=== PATIENT | male | born 1940 | race Caucasian/White ===

== ENCOUNTER 2022-07-01 11:39 | Outpatient (CLI) | payer MEDICARE, BC, SELFPAY ==
[2022-07-01 12:04] VITALS: BP 155/73; PULSE 68; RESP 18; O2SAT 92
[2022-07-01] MEDS: BRIMONIDINE TARTRATE 0.2% OPHTH 1 DROP EYE-BOTH ×2 (12:05→12:36)
[2022-07-01] MEDS: TETRACAINE 0.5% OPHTH 1 DROP EYE-BOTH ×3 (12:05→12:25)
--- NOTE | 2022-07-01 12:38 | P.OPTPRC_ITS ---
Procedure Note Date of procedure: 07/01/22 Will [facility] bill your pro fee for this procedure?: Yes Procedure Description: SURGEON: Tiffanie Hayward MD PREOPERATIVE DIAGNOSIS: Posterior capsular opacity, right and left eye POSTOPERATIVE DIAGNOSIS: Posterior capsular opacity, right and left eye PROCEDURE: YAG laser capsulotomy, both eyes ANESTHESIA: Topical. ESTIMATED BLOOD LOSS: None PATHOLOGY SPECIMEN: None COMPLICATIONS: None INDICATIONS: See consult note for details. The risks, benefits and alternatives of the procedure were explained to the patient, who elected to proceed and signed informed consent to do so. PROCEDURE: The patient was brought to the pre-holding area where the right and left eyes were identified as the operative eyes. I placed my initials above the eyes. The following was given in both eyes: The patient received 2 sets of 1 drop of 0.5% tetracaine and 1 drop of 1% tropicamide. They also received 1 drop of 0.2% brimonidine. They received 1 drop of 0.5% tetracaine immediately prior to bringing them back for the procedure. The patient was then brought to the procedure room where the right and left eyes were again identified as the operative eyes. A YAG Saúl capsulotomy lens was placed on the right eye. The laser was administered using a total number of 8 shots with an energy of 2.4 mJ per shot for a total energy of 19 mJ. The patient tolerated the procedure well. A YAG Saúl capsulotomy lens was placed on the left eye. The laser was administered using a total number of 11 shots with an energy of 2.4 mJ per shot for a total energy of 26 mJ. The patient tolerated the procedure well. DISPOSITION: The patient was taken back to the pre-holding area and given 1 drop of 0.2% brimonidine in both eyes. They were discharged to home in stable condition. The patient was instructed [facility] call [facility] any sudden change, including dramatic loss of vision, severe pain in the eye or eyebrow region, nausea, or vomiting. The patient was instructed to use the 0.2% brimonidine 1 drop 2 times a day in both eyes for 1 week. The patient will follow up in the clinic in 1-2 weeks. Surgeon: Tiffanie Hayward MD
== END 2022-07-01 12:37 | disposition home or self-care (01) ==
LOC: OP CLINIC 11:42
PROVIDERS: PCP Family Medicine; Visit Provider Ophthalmology
DX: H26.9 Unspecified cataract (principal)
CPT/HCPCS: 66821; A9270

== ENCOUNTER 2022-08-18 14:12 | Outpatient (CLI) | payer MEDICARE, BC, SELFPAY | END 2022-08-18 14:13 | disposition home or self-care (01) | LOC: MRI 14:16 | PROVIDERS: PCP Family Medicine; Visit Provider Internal Medicine | DX: C61 Malignant neoplasm of prostate (principal) | CPT/HCPCS: 72195 ==

== ENCOUNTER 2023-10-07 08:27 | Outpatient (RCR) | payer MEDICARE, BC, SELFPAY ==
[2023-10-07] VITALS (9 sets, daily range): BP systolic 105–133; BP diastolic 57–79; PULSE 62–69; RESP 16; TEMP 36.1–36.5; O2SAT 95–98
[2023-10-07] MEDS: FUROSEMIDE 10 MG/ML inj 20 MG IVP (12:14)
== END 2024-04-04 23:59 | disposition home or self-care (01) ==
LOC: CCIC 08:27
PROVIDERS: PCP Family Medicine; Referring Provider Family Medicine; Visit Provider Family Medicine
DX: D50.8 Other iron deficiency anemias (principal); K52.0 Gastroenteritis and colitis due to radiation
CPT/HCPCS: 36415; 36430; 86850; 86900; 86901; 86922; J1940; P9016

== ENCOUNTER 2023-10-27 19:10 | Outpatient (CLI) | payer MEDICARE, BC, SELFPAY | END 2023-10-27 19:11 | disposition home or self-care (01) | LOC: AMB 10-31 07:42 | PROVIDERS: PCP Family Medicine; Visit Provider Emergency Medicine Emergency Medical Services | DX: M54.9 Dorsalgia, unspecified (principal) | CPT/HCPCS: A0425; A0429 ==

== ENCOUNTER 2023-10-27 19:56 | Observation (INO) | payer MEDICARE, BC, SELFPAY ==
[2023-10-27 20:01] VITALS: BP 122/56; PULSE 71; RESP 16; TEMP 36.2; O2SAT 95; BMI 27.7
--- NOTE | 2023-10-27 20:18 | ED_ITS ---
HPI - General Adult General Chief complaint: Back Injury/Pain Stated complaint: Fall Time Seen by Provider: 10/27/23 20:09 History of Present Illness HPI narrative: Pt felt dizzy this morning around 0230 when getting up to use restroom. Pt fell down to his knees, did not lose consciousness, did not hit his head. Pt rates back pain 7/10. When fell, injured his back. Pt reports history knee and back pain. EMS, blood sugar of 156. IV LAC 18 gauge. 83-year-old man presenting to the emergency department with concern of low back pain and bilateral knee pain right greater than left. He was up this stair builder to use the restroom and feeling dizzy which I clarified to lightheadedness, ultimately falling to his knees. Did not hit his head. There is no loss of consciousness. This standing up and feeling dizzy or at least lightheaded is not a new circumstance. He does have some knee pain and history of low back pain. Spouse did give him a hydrocodone this afternoon without significant relief. Air concerned that he is simply a 2 week possibly related to pain to return home for them to manage at this point. Would note that is accompanied by spouse and daughter. Denies abdominal pain. No upper extremity pain. No shortness of breath or chest pain. Other information obtain later is that received 2 units of blood 1 or 2 weeks ago. Underlying history of prostate cancer and GI bleed. Related Data Home Medications ?Medication ?Instructions ?Recorded ?Confirmed Lactobacillus acidophilus 10 100 mmu cells PO BID 10/07/23 10/27/23 billion cell capsule blood sugar diagnostic (Contour 10/07/23 10/07/23 Next Test Strips) ferrous sulfate 325 mg (65 mg 325 mg PO DAILY 10/07/23 10/27/23 iron) tablet furosemide 20 mg tablet 20 mg PO DAILY 10/07/23 10/27/23 glyburide 2.5 mg tablet 2.5 mg PO DAILY 10/07/23 10/27/23 metoprolol tartrate 25 mg tablet 25 mg PO DIRECTED 10/07/23 10/27/23 niacin 500 mg tablet 500 mg PO DAILY 10/07/23 10/27/23 nitroglycerin 0.4 mg sublingual 0.4 mg sublingual Q5M PRN 10/07/23 10/27/23 tablet omega 1-vog-gkn-fish oil 1,200 mg 1 cap PO DAILY 10/07/23 10/27/23 (144 mg-216 mg) capsule (Fish Oil) semaglutide 7 mg tablet (Rybelsus) 7 mg PO DAILY 10/07/23 10/27/23 sertraline 100 mg tablet 150 mg PO DAILY 10/07/23 10/27/23 simvastatin 80 mg tablet 80 mg PO DAILY 10/07/23 10/27/23 tamsulosin 0.4 mg capsule 0.8 mg PO QPM 10/07/23 10/27/23 Allergies Allergy/AdvReac Type Severity Reaction Status Date / Time chlorthalidone AdvReac Unknown Verified 10/07/23 09:01 lisinopril AdvReac Verified 10/07/23 09:01 Review of Systems Status of ROS: Reports: 6 or more systems reviewed and unremarkable except as noted in History and below [facility] Medical History CKD (chronic kidney disease) stage 3, GFR 30-59 ml/min ?N18.30 - Chronic kidney disease, stage 3 unspecified (ICD-10) Pulmonary fibrosis ?J84.10 - Pulmonary fibrosis, unspecified (ICD-10) 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 - Radiation proctitis (ICD-10) Non-insulin dependent diabetes mellitus Hyperlipidemia ?E78.5 - Hyperlipidemia, unspecified (ICD-10) Essential (primary) hypertension ?I10 - Essential (primary) hypertension (ICD-10) IVORY (obstructive sleep apnea) ?G47.33 - Obstructive sleep apnea (adult) (pediatric) (ICD-10) Prostate cancer ?C61 - Malignant neoplasm of prostate (ICD-10) GERD (gastroesophageal reflux disease) ?K21.9 - Gastro-esophageal reflux disease without esophagitis (ICD-10) Atherosclerotic heart disease ?I25.10 - Atherosclerotic heart disease of [place] coronary artery without angina pectoris (ICD-10) Gout ?M10.9 - Gout, unspecified (ICD-10) Surgical History H/O hemorrhoidectomy ?Z98.890 - Other specified postprocedural states (ICD-10) H/O colonoscopy ?Z98.890 - Other specified postprocedural states (ICD-10) H/O arthroscopy of shoulder ?Z98.890 - Other specified postprocedural states (ICD-10) S/P cholecystectomy ?Z90.49 - Acquired absence of other specified parts of digestive tract (ICD- 10) Hx of CABG ?Z95.1 - Presence of aortocoronary bypass graft (ICD-10) Social History Narrative: Retired, [place] [facility]. Two adult children. Former smoker, typically has 1-2 drinks per night, has not been drinking much recently. No history of ETOH withdrawal. would be medical decision maker if needed, code status is full. What is your current living situation?: I presently have a place to live Problems where you live: no known problems Problems where you live details: NA In the past 12 months, utilities in danger of being shut off: no In past 12 months, lack of transportation kept you from medical appts, meetings, work, or getting things needed for daily living: no In the past 12 mos, have been you worried that your food would run out before you had money to buy more?: never true In the past 12 mos, the food you bought just didn't last and you didn't have money to buy more?: never true Highest level of school completed/degree received: GED or equivalent Smoking Status: Never smoker Second hand tobacco smoke exposure: No How often do you have a drink containing alcohol: 4 or more times a week Alcohol type details: 1-2 drinks nightly, states he hasn't had any for a few nights How many standard drinks containing alcohol do you have on a typical day: 1 or 2 How often do you have six or more drinks on one occasion: Never AUDIT-C Alcohol total score: 4 Non-prescribed substance use: denies use Caffeine: Yes How often does anyone, including family, friends and others, physically hurt you : never How often does anyone, including family, friends and others, insult or talk down to you: never How often does anyone, including family, friends and others, threaten you with harm: never How often does anyone, including family, friends and others, scream or curse at you: never service: No Exam Narrative: Exam Narrative: The pleasant. Hard of hearing. Head is atraumatic. Neck is supple nontender. Back nontender. Vaguely reproducible discomfort however to palpation of midline low lumbar spine. Sense of fullness here. No SI joint area tenderness but. Heart is in regular rate and rhythm. Is generally stiff in his movements. There are large swellings at the left olecranon a. Without cellulitic change. These are chronic. Subcutaneous bones at the anterior aspect of the right patella I suspect are tophaceous. Less but also present about the left patella. I do not see any inflammatory changes. No clear joint effusion. He complains of a good deal of pain with flexion of both knees. No abdominal pain. Overweight. Const: Vital Signs, click to edit/add: Vital Signs - 24 hr 10/27/23 20:01 Temperature 97.2 F L Pulse Rate [Left P ulse Oximeter] 71 Respiratory Rate 16 Blood Pressure [Ri ght Upper Arm] 122/56 L Pulse Oximetry 95 Oxygen Delivery Me thod Room Air Documenting provider has reviewed patient's vital signs: yes Course Vital Signs Vital signs: Initial Vital Signs Temperature 97.2 F L 10/27/23 20:01 Temperature Source Temporal Artery Scan 10/27/23 20:01 Pulse Rate 71 10/27/23 20:01 Pulse Rhythm Regular 10/27/23 20:01 Respiratory Rate 16 10/27/23 20:01 Blood Pressure 122/56 L 10/27/23 20:01 Blood Pressure Mean 78 10/27/23 20:01 Blood Pressure Position Semi-Fowlers 10/27/23 20:01 Pulse Oximetry 95 10/27/23 20:01 Oxygen Delivery Method Room Air 10/27/23 20:01 Vital Signs Temperature 97.2 F L 10/27/23 20:01 Pulse Rate 71 10/27/23 20:01 Respiratory Rate 16 10/27/23 20:01 Blood Pressure 122/56 L 10/27/23 20:01 Pulse Oximetry 95 10/27/23 20:01 Oxygen Delivery Method Room Air 10/27/23 20:01 Temperature 98.1 F 10/27/23 22:40 Pulse Rate 63 10/28/23 00:49 Respiratory Rate 18 10/27/23 23:00 Blood Pressure 122/76 10/27/23 22:40 Pulse Oximetry 94 10/27/23 22:40 Oxygen Delivery Method Room Air 10/27/23 22:40 Medications Administered Medications: Generic Name Dose Route Start Last Admin Trade Name Freq PRN Reason Stop Dose Admin Acetaminophen 1,300 mg 10/27/23 23:12 10/28/23 00:11 Acetaminophen 650 Mg Tablet Er PO 1,300 mg Q8H PRN Administration Lidocaine 1 patch 10/27/23 23:30 10/28/23 00:12 Lidocaine 5% Patch TRANSDERMA 1 patch Q24H MIKE Administration Protocol Metoprolol Tartrate 50 mg 10/28/23 00:00 10/28/23 00:18 Metoprolol Tartrate 50 Mg Tablet PO Not Given HS MIKE Oxycodone HCl 5 - 10 mg 10/27/23 23:12 10/28/23 00:11 Oxycodone 5 Mg Tablet PO 10 mg Q4H PRN Administration moderate/severe Pain Discontinued Medications Generic Name Dose Route Start Last Admin Trade Name Freq PRN Reason Stop Dose Admin Hydrocodone Bitart/Acetaminophen 2 tab 10/27/23 20:25 10/27/23 20:32 Hydrocodone-Acetamin 5-325 Mg 1 Tab PO 10/27/23 20:26 2 tab ONCE ONE Administration Sodium Chloride 1,000 mls @ 1,000 mls/hr 10/27/23 21:31 10/27/23 21:43 0.9 % Sodium Chloride 1000 Ml IV 10/27/23 22:30 1,000 mls/hr .Q1H ONE Administration Medical Decision Making MDM Narrative Medical decision making narrative: Hope is that with proper pain management might be able to return home. I would anticipate knee contusion over a potential fracture here. With chronic history of back pain, I think CT imaging will be warranted and preferred over standard flat plate. Upon reassessment it appears more energetic. Says he is feeling much better and relatively free of pain. Review of bilateral knee x-rays three views each by me shows osteoarthritic changes. There appears to be a disrupted osteophyte near the tibia on the right. Reviewed CT imaging over the lumbar spine as well. Would defer to radiology here. Appears to be suspected chronic compression fracture most notable in the L4 vertebral body. Noncontrast CT through the lumbar spine with multiplanar reformats Comparison: None Findings: Alignment: Mild L3-4 anterolisthesis. Bones: Osteopenic appearing bone. Schmorl`s node with mild compression fracture at L1 and Schmorl`s node with mild to moderate compression fracture at L4. Mild height loss of L5 also noted. While there is no comparison and these are technically age indeterminate, the absence of acute features at presence of vacuum phenomenon overall suggests that these are chronic. Lumbar levels: No acute abnormality appreciated. [id number] multilevel degenerative changes. Suspect high-grade stenosis from disc and facet disease at L2-3. Soft tissues: No acute abnormality appreciated. Impression: 1. Chronic appearing though technically age indeterminate areas of height loss and compression, as above. No acute appearing fractures are appreciated. 2. 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 Again upon reassessment is improved however spouse maintains that simply too weak and unsafe to go home at this point. Therefore I contacted hospitalist who is thankfully accepting for admission. Labs are notable in particular for hemoglobin of 10.8. This is improved actually from prior measurement. Otherwise creatinine of 2.5 which I understand is near his baseline. Medical Records Medical records reviewed: Yes I reviewed the patient's medical records Lab Data Lab results reviewed: Yes I reviewed the patient's lab results Labs: Lab Results 10/27/23 Range/Units 20:40 WBC 9.52 (4.50-11.00) K/uL RBC 3.53 L (4.30-5.90) m/uL Hgb 10.8 L (13.5-17.5) gm/dL Hct 33.7 L (37.0-53.0) % MCV 96 (80-100) fL MCH 31 (26-34) pg MCHC 32 (32-36) gm/dL RDW Coeff of Jcarlos 15.0 (11.5-15.5) % Plt Count 219 (140-440) K/uL Neut % (Auto) 81.8 H (42.0-72.0) % Lymph % (Auto) 5.8 L (20-44) % [place] % (Auto) 11.2 H (0.0-11.0) % Eos % (Auto) 0.7 (0.0-7.0) % Baso % (Auto) 0.2 (0.0-3.0) % Neut # (Auto) 7.80 H (1.7-7.0) K/uL Lymph # (Auto) 0.60 L (0.90-2.90) K/uL [place] # (Auto) 1.10 H (0.00-0.90) K/UL Eos # (Auto) 0.07 (0.00-0.50) K/uL Baso # (Auto) 0.02 (0.00-0.30) K/uL Abs Immat Gran (auto) 0.03 (0.00-0.30) K/uL Imm/Tot Granulo (auto) 0.3 % Sodium 137 (135-149) mmol/L Potassium 4.6 (3.6-5.1) mmol/L Chloride 100 (96-114) mmol/L Carbon Dioxide 26 (20-32) mmol/L Anion Gap 11 (7-15) mEq/L BUN 49 H (7-30) mg/dL Creatinine 2.5 H (0.5-1.5) mg/dL Estimated Creat Clear 25.75 Estimated GFR 25 ml/min Glucose 146 H (60-115) mg/dL Calcium 9.7 (8.4-10.6) mg/dL Discharge Plan Discharge Clinical Impression: Back pain, Weakness, Acute knee pain Patient Disposition: Admitted As Observation Condition: Improved
--- NOTE | 2023-10-27 20:26 | CRLHL7_ITS ---
For Patients: As a result of the Century Cures Act, medical imaging exams and procedure reports are released immediately into your electronic medical record. You may view this report before your referring provider. If you have questions, please contact your health care provider. Indication: Fall with low back pain Technique: Noncontrast CT through the lumbar spine with multiplanar reformats Comparison: None Findings: Alignment: Mild L3-4 anterolisthesis. Bones: Osteopenic appearing bone. Schmorl`s node with mild compression fracture at L1 and Schmorl`s node with mild to moderate compression fracture at L4. Mild height loss of L5 also noted. While there is no comparison and these are technically age indeterminate, the absence of acute features at presence of vacuum phenomenon overall suggests that these are chronic. Lumbar levels: No acute abnormality appreciated. Ursw-wy-fwwzwwsx multilevel degenerative changes. Suspect high-grade stenosis from disc and facet disease at L2-3. Soft tissues: No acute abnormality appreciated. Impression: 1. Chronic appearing though technically age indeterminate areas of height loss and compression, as above. No acute appearing fractures are appreciated. 2. 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 Please note that all CT scans at this facility use dose modulation, iterative reconstruction, and/or weight-based dosing when appropriate to reduce radiation dose to as low as reasonably achievable. Dictated by Misael Kingston MD @ 10/27/2023 9:42:39 PM (Electronically Signed)
--- NOTE | 2023-10-27 20:26 | CRLHL7_ITS ---
For Patients: As a result of the Cures Act, medical imaging exams and procedure reports are released immediately into your electronic medical record. You may view this report before your referring provider. If you have questions, please contact your health care provider. Indication: Fall and pain Technique: Three views of the right knee Comparison: None Findings/Impression: Swha-os-hdzxsybo tricompartment changes and small joint effusion. Question fracture of osteophytes along the tibial tuberosity. No other acute radiographic abnormality is appreciated. Dictated by Misael Kingston MD @ 10/27/2023 9:44:50 PM (Electronically Signed)
--- NOTE | 2023-10-27 20:26 | CRLHL7_ITS ---
For Patients: As a result of the Cures Act, medical imaging exams and procedure reports are released immediately into your electronic medical record. You may view this report before your referring provider. If you have questions, please contact your health care provider. Indication: Fall and pain Technique: Three views of the left knee Comparison: None Findings/Impression: Postoperative changes along the medial soft tissues and mild to moderate tricompartmental degenerative changes with no acute radiographic abnormality appreciated. Dictated by Misael Kingston MD @ 10/27/2023 9:43:42 PM (Electronically Signed)
[2023-10-27] MEDS: HYDROCODONE-ACETAMIN 5-325 MG 1 TAB 2 TAB PO (20:32)
[2023-10-27 20:55] LABS: Basophils Absolute Auto 0.02 K/uL (0.00-0.30); Basophils Percent Auto 0.2 % (0.0-3.0); Eosinophils Absolute Auto 0.07 K/uL (0.00-0.50); Eosinophils Percent Auto 0.7 % (0.0-7.0); Hematocrit 33.7 % (37.0-53.0); Hemoglobin* 10.8 gm/dL (13.5-17.5); Immature Granulocytes Abs Auto 0.03 K/uL (0.00-0.30); Immature Granulocytes Pct Auto 0.3 %; Lymphocytes Percent Auto 5.8 % (20-44); Mean Corpuscular HGB Conc 32 gm/dL (32-36); Mean Corpuscular Hemoglobin 31 pg (26-34); Mean Corpuscular Volume 96 fL (80-100); Monocytes Percent Auto 11.2 % (0.0-11.0); Neutrophils Percent Auto 81.8 % (42.0-72.0); Platelet Count* 219 K/uL (140-440); Red Blood Count 3.53 m/uL (4.30-5.90); White Blood Count* 9.52 K/uL (4.50-11.00)
[2023-10-27 21:04] LABS: Slide Review Reflex No
[2023-10-27 21:06] LABS: Chloride* 100 mmol/L (96-114)
[2023-10-27 21:07] LABS: Potassium* 4.6 mmol/L (3.6-5.1); Sodium* 137 mmol/L (135-149)
[2023-10-27 21:09] LABS: Creatinine* 2.5 mg/dL (0.5-1.5); Est. Creatinine Clearance* 25.75; Estimated Glomerular Filt Rate 25 ml/min
[2023-10-27 21:10] LABS: Anion Gap 11 mEq/L (7-15); Blood Urea Nitrogen* 49 mg/dL (7-30); Calcium* 9.7 mg/dL (8.4-10.6); Carbon Dioxide* 26 mmol/L (20-32); Glucose* 146 mg/dL (60-115)
[2023-10-27] MEDS: 0.9 % SODIUM CHLORIDE 1000 ml 1,000 ML IV (21:43)
--- NOTE | 2023-10-27 22:38 | P.IMHP_ITS ---
Hospitalist- H&P: HPI History of Present Illness Date Seen: 10/27/23 Chief complaint: Fall Narrative: Addi Oliveira is a 83 year old male who presented to the emergency room by ambulance this evening after a fall at home. He fell at home early this morning (around 0230) while he was getting up to go to the bathroom, typically up multiple times/night to urinate. He noted some lightheadedness prior to the fall (has been noting more lightheadedness when getting up from a seated position lately), no palpitations or other symptoms. He fell onto his knees, noting fairly significant back pain following the fall. He did not hit his head nor lose consciousness. Fall was unwitnessed. He is not on any blood thinners. During the day, his treated him with [place] which provided no relief. He was unable to move secondary to discomfort. She did not feel that she could safely help him with ambulation and eventually called the ambulance of the for ED transport. ER Course and Findings: - possible L4 compression fracture on L Spine CT, unclear chronicity - Hgb 10.8 (stable, received a blood transfusion for hematochezia secondary to radiation proctitis earlier this month for a Hgb of 8.8) - no acute findings on bilateral knee XRays (chronic changes) - Creatinine 2.5 (baseline) Patient given #2 [place] in the ED, ineffective. He was still unable to move and safely transfer home; thus is admitted to the hospital. present for H&P. History is updated below, Dr. Aparicio is PCP locally. Review of Systems Status of ROS: Reports: 10 or more systems reviewed and unremarkable except as noted in History and below [facility] Medical History (Updated 10/27/23 @ 23:26 by Jody Hernández MD) CKD (chronic kidney disease) stage 3, GFR 30-59 ml/min ?N18.30 - Chronic kidney disease, stage 3 unspecified (ICD-10) Pulmonary fibrosis ?J84.10 - Pulmonary fibrosis, unspecified (ICD-10) 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 - Radiation proctitis (ICD-10) Non-insulin dependent diabetes mellitus Hyperlipidemia ?E78.5 - Hyperlipidemia, unspecified (ICD-10) Essential (primary) hypertension ?I10 - Essential (primary) hypertension (ICD-10) IVORY (obstructive sleep apnea) ?G47.33 - Obstructive sleep apnea (adult) (pediatric) (ICD-10) Prostate cancer ?C61 - Malignant neoplasm of prostate (ICD-10) GERD (gastroesophageal reflux disease) ?K21.9 - Gastro-esophageal reflux disease without esophagitis (ICD-10) Atherosclerotic heart disease ?I25.10 - Atherosclerotic heart disease of al[place]iiq coronary artery without angina pectoris (ICD-10) Gout ?M10.9 - Gout, unspecified (ICD-10) Surgical History (Updated 10/27/23 @ 23:45 by Jody Hernández MD) H/O hemorrhoidectomy ?Z98.890 - Other specified postprocedural states (ICD-10) H/O colonoscopy ?Z98.890 - Other specified postprocedural states (ICD-10) H/O arthroscopy of shoulder ?Z98.890 - Other specified postprocedural states (ICD-10) S/P cholecystectomy ?Z90.49 - Acquired absence of other specified parts of digestive tract (ICD- 10) Hx of CABG ?Z95.1 - Presence of aortocoronary bypass graft (ICD-10) Social History (Updated 10/27/23 @ 23:24 by Jody Hernández MD) Narrative: Retired, [place] of [facility]. Two adult children. Former smoker, typically has 1-2 drinks per night, has not been drinking much recently. No history of ETOH withdrawal. would be medical decision maker if needed, code status is full. Non-prescribed substance use: denies use Meds Home Medications and Allergies Home Medications ?Medication ?Instructions ?Recorded ?Confirmed ?Type Lactobacillus acidophilus 10 100 mmu cells PO BID 10/07/23 10/27/23 History billion cell capsule blood sugar diagnostic (Contour 10/07/23 10/07/23 History Next Test Strips) ferrous sulfate 325 mg (65 mg 325 mg PO DAILY 10/07/23 10/27/23 History iron) tablet furosemide 20 mg tablet 20 mg PO DAILY 10/07/23 10/27/23 History glyburide 2.5 mg tablet 2.5 mg PO DAILY 10/07/23 10/27/23 History metoprolol tartrate 25 mg tablet 25 mg PO DIRECTED 10/07/23 10/27/23 History niacin 500 mg tablet 500 mg PO DAILY 10/07/23 10/27/23 History nitroglycerin 0.4 mg sublingual 0.4 mg sublingual Q5M PRN 10/07/23 10/27/23 History tablet omega 2-uih-blr-fish oil 1,200 mg 1 cap PO DAILY 10/07/23 10/27/23 History (144 mg-216 mg) capsule (Fish Oil) semaglutide 7 mg tablet (Rybelsus) 7 mg PO DAILY 10/07/23 10/27/23 History sertraline 100 mg tablet 150 mg PO DAILY 10/07/23 10/27/23 History simvastatin 80 mg tablet 80 mg PO DAILY 10/07/23 10/27/23 History tamsulosin 0.4 mg capsule 0.8 mg PO QPM 10/07/23 10/27/23 History Allergies Allergy/AdvReac Type Severity Reaction Status Date / Time chlorthalidone AdvReac Unknown Verified 10/07/23 09:01 lisinopril AdvReac Verified 10/07/23 09:01 Exam Narrative: Exam Narrative: GEN: Alert and oriented, laying comfortably in bed HEENT: EOMIs bilaterally, no scleral icterus, mild conjunctival pallor CV: RRR, No concerning murmurs R: LCTA bilaterally without concerning wheezing, air movement adequate Ab: soft, no ttp, no distention or masses Back: normal contours, no step-offs, + ttp over midline in lumbar region Ext: discomfort with palpation of B knees, no effusion or skin abnormalities, discomfort with flexion/extension. Normal dorsalis pedis pulses, + subungual hematoma R great toe Skin: Hemostatic abrasion of skin R great toe, scattered bruising of upper extremities Neuro: No focal deficits on limited exam Psych: Appropriate Const: Vital Signs, click to edit/add: Vital Signs - 24 hr 10/27/23 20:01 Temperature 97.2 F L Pulse Rate [Left P ulse Oximeter] 71 Respiratory Rate 16 Blood Pressure [Ri ght Upper Arm] 122/56 L Pulse Oximetry 95 Oxygen Delivery Me thod Room Air Hospitalist - H&P: Result Labs Labs: Short CBC 10/27/23 Range/Units 20:40 WBC 9.52 (4.50-11.00) K/uL Hgb 10.8 L (13.5-17.5) gm/dL Hct 33.7 L (37.0-53.0) % Plt Count 219 (140-440) K/uL BMP 10/27/23 20:40 Sodium 137 Potassium 4.6 Chloride 100 Carbon Dioxide 26 BUN 49 H Creatinine 2.5 H Glucose 146 H Calcium 9.7 Assessment and Plan Assessment and plan (1) Fall: Problem comment: - likely mechanical, may have an element of orthostasis - follow on telemetry given cardiac history Status: Acute (2) Compression fracture of L4 vertebra: Problem comment: - unclear chronicity, but was not present on August MRI - given trauma and pain, will treat as this is acute with calcitonin nasal spray and lidocaine patches - scheduled Tylenol and prn oxycodone, therapies ordered Status: Acute (3) Low back pain: Status: Acute (4) CKD (chronic kidney disease) stage 3, GFR 30-59 ml/min: Problem comment: - stage 3/4, baseline creatinine 2.2-2.6 as an outpatient Status: Acute (5) Non-insulin dependent diabetes mellitus: Problem comment: - on Semaglutide and Glyburide - last A1C 6.06 July 2023 - regular diet, accuchecks Status: Acute (6) Essential (primary) hypertension: Problem comment: - in addition to hyperlipidemia, coronary artery disease - continue home medications Status: Acute (7) Anemia: Problem comment: - 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
[2023-10-27 22:40] VITALS: BP 122/76; PULSE 72; RESP 18; TEMP 36.7; O2SAT 94; BMI 26.3
--- NOTE | 2023-10-27 22:40 | PC.NURSE ---
Report given to med surg staff. All cares explained to . phlebotomy services technician tx pt via bed with all belongings. Dr Hernández aware that has some questions about xrays and labs.
[2023-10-27 23:00] VITALS: PULSE 72; RESP 18
[2023-10-28] MEDS: ACETAMINOPHEN 650 MG TABLET ER 1300 MG PO ×2 (00:11→08:18)
[2023-10-28] MEDS: OXYCODONE 5 MG TABLET PO ×2 (00:11→08:18)
[2023-10-28] MEDS: LIDOCAINE 5% PATCH 1 PATCH TRANSDERMA (00:12)
[2023-10-28 00:38] LABS: Appearance Urine Clear (Clear); Bilirubin Urine Negative (Negative); Blood Urine Trace-intact (Negative); Color Urine Yellow (Yellow); Glucose Urine 2+ (Negative); Ketones Urine Negative (Negative); Leukocyte Esterase Urine Negative (Negative); Nitrite Urine Negative (Negative); Protein Urine Trace (Negative); Specific Gravity Urine 1.015 (1.000-1.030); Urobilinogen Urine 0.2 (0.2-1.0)
[2023-10-28 00:46] LABS: Bacteria Urine Few; RBC Urine 0-2 (0-2); Squamous Epithelial Cell Urine Few (None-Few); WBC Urine 0-2 (0-5)
[2023-10-28 00:49] VITALS: PULSE 63
[2023-10-28 02:48] VITALS: BP 109/60; PULSE 66; RESP 18; TEMP 36.9; O2SAT 94
--- NOTE | 2023-10-28 05:52 | PC.NURSE ---
End of shift report [id number]: Patient admitted to floor at 2240 with back pain from fall. Alert and oriented x 4. Pain to low back reported, well managed with current regimen. Wound to right great toe from fall, area cleansed and covered with bandage per Dr. Hernández recommendation. Denies any SOB or chest pain. Lung sounds clear but diminished bilaterally. Transfers with assist of 2 with gait belt and walker, able to ambulate short distances.
[2023-10-28 06:40] LABS: Basophils Absolute Auto 0.01 K/uL (0.00-0.30); Basophils Percent Auto 0.2 % (0.0-3.0); Eosinophils Absolute Auto 0.13 K/uL (0.00-0.50); Eosinophils Percent Auto 2.5 % (0.0-7.0); Hematocrit 30.9 % (37.0-53.0); Immature Granulocytes Abs Auto 0.02 K/uL (0.00-0.30); Immature Granulocytes Pct Auto 0.4 %; Lymphocytes Percent Auto 14.6 % (20-44); Mean Corpuscular HGB Conc 32 gm/dL (32-36); Mean Corpuscular Hemoglobin 31 pg (26-34); Mean Corpuscular Volume 96 fL (80-100); Monocytes Percent Auto 13.1 % (0.0-11.0); Neutrophils Absolute Auto 3.64 K/uL (1.7-7.0); Neutrophils Percent Auto 69.2 % (42.0-72.0); Platelet Count* 205 K/uL (140-440); RDW Coefficient of Variation % 14.9 % (11.5-15.5); Red Blood Count 3.22 m/uL (4.30-5.90); White Blood Count* 5.26 K/uL (4.50-11.00)
[2023-10-28 06:46] LABS: Slide Review Reflex No
[2023-10-28 07:03] LABS: Chloride* 102 mmol/L (96-114); Potassium* 3.9 mmol/L (3.6-5.1); Sodium* 137 mmol/L (135-149)
[2023-10-28 07:05] LABS: Anion Gap 8 mEq/L (7-15); Aspartate Amino Transferase* 23 U/L (12-35); Bilirubin Total* 0.6 mg/dL (0.1-1.5); Carbon Dioxide* 27 mmol/L (20-32); Creatinine* 2.2 mg/dL (0.5-1.5); Est. Creatinine Clearance* 29.26; Estimated Glomerular Filt Rate 29 ml/min; Total Protein* 6.7 g/dL (6.0-8.3)
[2023-10-28 07:06] LABS: Alanine Aminotransferase* 20 U/L (4-50); Alkaline Phosphatase* 61 U/L (40-150); Blood Urea Nitrogen* 44 mg/dL (7-30); Calcium* 9.4 mg/dL (8.4-10.6); Glucose* 69 mg/dL (60-115)
[2023-10-28 08:54] VITALS: BP 105/66; PULSE 78; RESP 18; O2SAT 97
[2023-10-28] MEDS: SERTRALINE 100 MG TABLET 150 MG PO (09:00)
[2023-10-28] MEDS: FERROUS SULFATE 325 MG TABLET PO (09:00)
[2023-10-28] MEDS: METOPROLOL TARTRATE 25 MG TABLET PO (09:00)
[2023-10-28] MEDS: FUROSEMIDE 20 MG TABLET PO (09:00)
[2023-10-28 11:00] VITALS: BP 139/78; PULSE 60; RESP 18; TEMP 36.4; O2SAT 98
--- NOTE | 2023-10-28 12:58 | P.DS_ITS ---
DS: Providers Provider Date Seen: 10/28/23 Date of admission: 10/27/23 22:37 Primary care physician: Sravan Aparicio MD Admitting Clinician: Jody Hernández MD Attending Physician on discharge: Mannie Yee MD Date of Discharge: 10/28/23 DS: Diagnosis Discharge Diagnosis (1) Fall: Status: Acute Problem details: Mechanical fall in the middle of the night. Uncertain whether there was syncope but reported symptoms of lightheadedness prior to the fall. Blood pressure has been relatively low here (2) Essential (primary) hypertension: Status: Acute Problem details: Blood pressure has been relatively low in the hospital. Reduce metoprolol from 25 mg in the morning and 50 mg at night to 12.5 mg b.i.d. pending followup (3) Compression fracture of L4 vertebra: Status: Acute Problem details: Has chronic back problems with a new acute L4 compression fracture. 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 2.2 this morning (7) Low back pain: Status: Acute Problem details: Acute on chronic (8) Cognitive impairment: Status: Acute Problem details: [place] score on 10/28/2023 is 17/30. Probably has dementia. Recommend that the do more supervision of medication and that the patient stop driving. DS: Summary Hospital Course Hospital Course: Admission HPI: Addi Oliveira is a 83 year old male who presented to the emergency room by ambulance this evening after a fall at home. He fell at home early this morning (around 0230) while he was getting up to go to the bathroom, typically up multiple times/night to urinate. He noted some lightheadedness prior to the fall (has been noting more lightheadedness when getting up from a seated position lately), no palpitations or other symptoms. He fell onto his knees, noting fairly significant back pain following the fall. He did not hit his head nor lose consciousness. Fall was unwitnessed. He is not on any blood thinners. During the day, his treated him with [place] which provided no relief. He was unable to move secondary to discomfort. She did not feel that she could safely help him with ambulation and eventually called the ambulance of the for ED transport. Since admission his pain has been fairly well controlled. He has used an occasional oxycodone tablet and acetaminophen for pain. He has been evaluated by Physical therapy which showed that he was able to walk with a walker fairly well. He he could also walk on stairs. He was evaluated by Occupational therapy. Include in this evaluation was a [place] score of 17/30. I discussed these findings with his and daughter. They were aware of some memory impairment. At this level of impairment I recommend that he stop driving. If he wants to continue to drive he should have a racing car driver safety evaluation. I recommend his provide more supervision for his medications as well. We talked about their home which is an old farm house. They have 3 steps to get on the main level but there is no bedroom or bathroom on the main level. I have recommended that temporarily they set up a bed and a commode on the main level until he is more mobile. Family has already considered doing in addition on the main level so that both the patient and his do not need to walk stairs. Status at Discharge Functional status at discharge: uses cane/walker Overall status at discharge: patient is progressing back to baseline Time Spent with Patient Time attestation: Total time spent providing and/or coordinating discharge services: 45 minutes Time spent: Less than 30 minutes Exam Narrative: Exam Narrative: He is alert and pleasant. Hard of hearing. Breathing is unlabored. Cardiovascular: S1, S2, regular rhythm. Lower extremity testing shows intact sensation. Small abrasion on the right leg but otherwise no apparent trauma. Active Straight leg raising causes low back pain. No obvious weakness. Bilaterally knee flexion and extension and ankle dorsiflexion plantar flexion are 5/5. Intact pedal pulses. No significant edema. Const: Vital Signs, click to edit/add: Vital Signs - 24 hr 10/27/23 20:01 10/27/23 22:40 10/27/23 22:40 Temperature 97.2 F L 98.1 F Pulse Rate Pulse Rate [Left P ulse Oximeter] 71 Pulse Rate [Right Pulse Oximeter] 72 Respiratory Rate 16 18 18 Blood Pressure [Le ft Arm] 122/76 Blood Pressure [Ri ght Upper Arm] 122/56 L Pulse Oximetry 95 94 94 Oxygen Delivery Me thod Room Air Room Air Room Air 10/27/23 23:00 10/28/23 00:49 10/28/23 02:48 Temperature 98.4 F Pulse Rate 63 Pulse Rate [Left P ulse Oximeter] Pulse Rate [Right Pulse Oximeter] 72 66 Respiratory Rate 18 18 Blood Pressure [Le ft Arm] 109/60 Blood Pressure [Ri ght Upper Arm] Pulse Oximetry 94 Oxygen Delivery Me thod Room Air 10/28/23 08:54 10/28/23 08:54 10/28/23 11:00 Temperature 97.6 F Pulse Rate Pulse Rate [Left P ulse Oximeter] Pulse Rate [Right Pulse Oximeter] 78 78 60 Respiratory Rate 18 18 18 Blood Pressure [Le ft Arm] 105/66 139/78 Blood Pressure [Ri ght Upper Arm] Pulse Oximetry 97 98 Oxygen Delivery Me thod Room Air Room Air Documenting provider has reviewed patient's vital signs: yes DS: Data Data Completed and Pending Labs on day of discharge: Labs from last 24 hours 10/28/23 10/28/23 10/27/23 05:57 00:33 20:40 WBC 5.26 9.52 RBC 3.22 L 3.53 L Hgb 10.0 L 10.8 L Hct 30.9 L 33.7 L MCV 96 96 MCH 31 31 MCHC 32 32 RDW Coeff of Jcarlos 14.9 15.0 Plt Count 205 219 Neut % (Auto) 69.2 81.8 H Lymph % (Auto) 14.6 L 5.8 L [place] % (Auto) 13.1 H 11.2 H Eos % (Auto) 2.5 0.7 Baso % (Auto) 0.2 0.2 Neut # (Auto) 3.64 7.80 H Lymph # (Auto) 0.80 L 0.60 L [place] # (Auto) 0.70 1.10 H Eos # (Auto) 0.13 0.07 Baso # (Auto) 0.01 0.02 Abs Immat Gran (auto) 0.02 0.03 Imm/Tot Granulo (auto) 0.4 0.3 Sodium 137 137 Potassium 3.9 4.6 Chloride 102 100 Carbon Dioxide 27 26 Anion Gap 8 11 BUN 44 H 49 H Creatinine 2.2 H 2.5 H Estimated Creat Clear 29.26 25.75 Estimated GFR 29 25 Glucose 69 146 H Calcium 9.4 9.7 Total Bilirubin 0.6 AST 23 ALT 20 Alkaline Phosphatase 61 Total Protein 6.7 Albumin 4.0 Urine Color Yellow Urine Appearance Clear Urine pH 7.0 Ur Specific [place] 1.015 Urine Protein Trace A Urine Glucose (UA) 2+ A Urine Ketones Negative Urine Blood Trace-intact A Urine Nitrite Negative Urine Bilirubin Negative Urine Urobilinogen 0.2 Ur Leukocyte Esterase Negative Urine RBC 0-2 Urine WBC 0-2 Ur Squamous Epith Cells Few Urine Bacteria Few A Preliminary micro results at discharge 10/28/23 00:33 Urine Culture - Preliminary Urine,Clean Catch Culture in Progress Imaging Lumbar CT: Radiologist's impression: Indication: Fall with low back pain Technique: Noncontrast CT through the lumbar spine with multiplanar reformats Comparison: None Findings: Alignment: Mild L3-4 anterolisthesis. Bones: Osteopenic appearing bone. Schmorl`s node with mild compression fracture at L1 and Schmorl`s node with mild to moderate compression fracture at L4. Mild height loss of L5 also noted. While there is no comparison and these are technically age indeterminate, the absence of acute features at presence of vacuum phenomenon overall suggests that these are chronic. Lumbar levels: No acute abnormality appreciated. Rmqu-ge-qhsmsubk multilevel degenerative changes. Suspect high-grade stenosis from disc and facet disease at L2-3. Soft tissues: No acute abnormality appreciated. Impression: 1. Chronic appearing though technically age indeterminate areas of height loss and compression, as above. No acute appearing fractures are appreciated. 2. 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 Discharge Plan Discharge Disposition: Home w/ Parent or Adult Date of Admission: 10/27/23 22:37 Attending Provider on Discharge: Kaiden Yee Primary Care Provider: Sravan Aparicio Condition: Improved Anticipated Discharge Date/Time: 10/28/23 13:00 Discharge Medications: New senna 8.6 mg capsule 8.6 mg PO BID Qty: 30 0RF oxycodone 5 mg tablet 5 mg PO Q6H PRN (Reason: pain) Qty: 30 0RF lidocaine 4 % adhesive patch,medicated 1 patch topical DAILY PRN (Reason: pain) Qty: 30 0RF calcitonin (salmon) 200 unit/actuation spray,non-aerosol 1 spray intranasal (ALT) DAILY Qty: 3.7 0RF acetaminophen 500 mg capsule 1,000 mg PO TID PRNQty: 100 0RF Continued (DME) Contour Next Test Strips Strip MISCELLANEOUS DAILY glyburide 2.5 mg tablet 2.5 mg PO DAILY furosemide 20 mg tablet 20 mg PO DAILY nitroglycerin 0.4 mg tablet, sublingual 0.4 mg sublingual Q5M PRN sertraline 100 mg tablet 150 mg PO DAILY simvastatin 80 mg tablet 80 mg PO DAILY tamsulosin 0.4 mg capsule 0.8 mg PO QPM Rybelsus 7 mg tablet 7 mg PO DAILY niacin 500 mg tablet 500 mg PO DAILY Lactobacillus acidophilus 10 billion cell capsule 100 mmu cells PO DAILY ferrous sulfate 325 mg (65 mg iron) tablet 325 mg PO DAILY omega 3-vlm-uoo-fish oil [Fish Oil] 1,200 (144-216) mg capsule 1 cap PO DAILY Changed metoprolol tartrate 25 mg tablet 12.5 mg PO BID Qty: 30 0RF Rx Instructions: 1 tab every morning, 2 tabs every evening Discharge Orders: Discharge Order (Routine); Ordered 10/28/23 Ordered By: Kaiden Yee Additional Instructions: I recommend you set up your house to be able to live on 1 level. Continue to physical therapy. Use acetaminophen as needed for pain. Use oxycodone as needed for more severe pain. Use sparingly if possible. It will cause sedation and constipation. I recommend that you give up driving. If you feel strongly that you are still able to drive than you should undergo a racing car driver safety evaluation. Talk to your doctor about this if you want to continue to drive. Activity Level: Use Walker Discharge Diet: Diabetic Follow Up Appointments: Sravan Aparicio MD [Primary Care Provider] - 11/03/23 3:15 pm (Follow-up in 1 week) Forms: [facility] Info Instructions
--- NOTE | 2023-10-28 13:56 | PC.SOCIAL ---
Discharge planning: Pt will be discharging home today with his with self-care. No identified social work need at this time. Social work to follow-up as needed.
--- NOTE | 2023-10-28 18:27 | PC.NURSE ---
Nursing Care Hours: [id number] Pt this shift calm and cooperative, alert and oriented. Pain rated 3/10, treated per eMAR. VSS. Ax1 with walker and gait belt. tolerating regular diet. Voiding in toilet. IV removed for discharge. Instructions went over with pt and spouse. All questions and concerns addressed. Pt wheeled out to spouses vehicle in stable condition, transferred from W/C to car without issue.
== END 2023-10-28 14:30 | disposition home or self-care (01) ==
LOC: ED 22:28 → MEDSURG 22:38
PROVIDERS: Admitting Provider Family Medicine; Emergency Provider Family Medicine; PCP Family Medicine; Visit Provider Family Medicine
DX: S32.040A Wedge compression fracture of fourth lumbar vertebra, initial encounter for closed fracture (principal); S80.811A Abrasion, right lower leg, initial encounter; S90.411A Abrasion, right great toe, initial encounter; R53.1 Weakness; W19.XXXA Unspecified fall, initial encounter; M54.50 Low back pain, unspecified; M25.562 Pain in left knee; M25.561 Pain in right knee; R42 Dizziness and giddiness; D64.9 Anemia, unspecified; I95.9 Hypotension, unspecified; R41.89 Other symptoms and signs involving cognitive functions and awareness; G89.29 Other chronic pain; I12.9 Hypertensive chronic kidney disease with stage 1 through stage 4 chronic kidney disease, or unspecified chronic kidney disease; E11.22 Type 2 diabetes mellitus with diabetic chronic kidney disease; N18.30 Chronic kidney disease, stage 3 unspecified; E78.5 Hyperlipidemia, unspecified; G47.33 Obstructive sleep apnea (adult) (pediatric); I25.10 Atherosclerotic heart disease of native coronary artery without angina pectoris; K21.9 Gastro-esophageal reflux disease without esophagitis; M10.9 Gout, unspecified; K62.7 Radiation proctitis; E66.3 Overweight; Z68.26 Body mass index [BMI] 26.0-26.9, adult; H91.90 Unspecified hearing loss, unspecified ear; Z90.49 Acquired absence of other specified parts of digestive tract; Z87.891 Personal history of nicotine dependence; Z85.46 Personal history of malignant neoplasm of prostate; Z95.1 Presence of aortocoronary bypass graft; Z98.890 Other specified postprocedural states
CPT/HCPCS: 36415; 72131; 73562; 80048; 80053; 81001; 82962; 85025; 87086; 96360; 97116; 97162; 97165; 97530; 99284; 99285; G0378; A9270; J7030

== ENCOUNTER 2023-12-16 14:30 | Outpatient (RCR) | payer MEDICARE, BC, SELFPAY | END 2024-04-14 23:59 | disposition home or self-care (01) | PROVIDERS: PCP Family Medicine; Visit Provider Family Medicine | DX: S32.040D Wedge compression fracture of fourth lumbar vertebra, subsequent encounter for fracture with routine healing (principal); M54.16 Radiculopathy, lumbar region; Z51.89 Encounter for other specified aftercare; M48.062 Spinal stenosis, lumbar region with neurogenic claudication; M17.0 Bilateral primary osteoarthritis of knee; M25.551 Pain in right hip; M25.552 Pain in left hip | CPT/HCPCS: 36415; 85025; 97110; 97116; 97140; 97162 ==

== ENCOUNTER 2024-04-11 12:58 | Outpatient (CLI) | payer MEDICARE, BC, SELFPAY | END 2024-04-11 12:59 | disposition home or self-care (01) | LOC: INJ CL 12:59 | PROVIDERS: PCP Family Medicine; Visit Provider Family Medicine | DX: M48.062 Spinal stenosis, lumbar region with neurogenic claudication (principal); M54.16 Radiculopathy, lumbar region; M54.50 Low back pain, unspecified; M79.604 Pain in right leg; M79.605 Pain in left leg | CPT/HCPCS: 64483; J1100; Q9966 ==

== ENCOUNTER 2024-05-14 22:38 | Outpatient (CLI) | payer MEDICARE, BC, SELFPAY | END 2024-05-14 22:39 | disposition home or self-care (01) | LOC: AMB 05-30 02:52 | PROVIDERS: PCP Family Medicine; Visit Provider Emergency Medicine | DX: S19.9XXA Unspecified injury of neck, initial encounter (principal); W18.30XA Fall on same level, unspecified, initial encounter; Y92.008 Other place in unspecified non-institutional (private) residence as the place of occurrence of the external cause | CPT/HCPCS: A0425; A0427 ==

== ENCOUNTER 2024-05-14 23:24 | Emergency (ER) | payer MEDICARE, BC, SELFPAY ==
--- OUTSIDE RECORDS SUMMARY | 2024-05-14 23:26 | XMS_ITS | Clinical Summary ---
Author Organization [facility] Address [place], [place] [address] Care Team Providers Care Home Visits Nurse Name Role Phone Sravan Aparicio MD Primary Care Provider [phone] Uzma Aguirre Unavailable [phone] Florentin Walton MD Unavailable [phone] Eliot Lerma MD Unavailable Fernando Fields MD Unavailable Sim Wynne MD Unavailable [phone] Ruben Carpenter DPM Unavailable Allergies Active Allergy Reactions Criticality Noted Date Comments Chlorthalidone Hyperkalemia,Other - Describe In Comment Field 08/27/2021 interfered with other meds Lisinopril Hyperkalemia,Other - Describe In Comment Field Medium 09/07/2019 Kidney labs were affected interfered with other meds Medications ASPIRIN 325 MG TAB, DELAYED RELEASEIndications :Coronary atherosclerosis of unspecified type of vessel, navajo or graft one daily 0 10/03/19 08 Active FISH OIL 1,200 MG-144 MG-216 MG CAPIndications:Cor onary atherosclerosis of unspecified type of vessel, navajo or graft one daily 0 10/03/19 08 Active FLAXSEED OIL 1,000 MG CAPIndications:Cor onary atherosclerosis of unspecified type of vessel, navajo or graft one daily 0 10/03/19 08 Active niacin 500 mg Sustained-Release capsuleIndications :Other and unspecified hyperlipidemia Take 1 capsule by mouth once daily. DO NOT CRUSH OR CHEW. 90 capsule 4 09/15/19 13 Active blood-glucose meterIndications:D iabetes mellitus without complication (HC) Dispense meter per insurance coverage 1 Device 09/17/19 21 Active lancetsIndications :Diabetes mellitus without complication (HC) As directed. Test 2 times per day. 100 Each 4 09/17/19 21 Active Diabetic ShoeIndications:Di abetes mellitus without complication (HC) As directed. Diabetic foot exam shows calloses over both first metatarsal heads and heels. 1 Each 03/11/20 22 Active CPAPIndications:Ob structive sleep apnea CPAP machine for home use at pressure 9 cmw, full face mask x1/3month with a full face cushion x1/mo 1 Each 11 03/29/20 23 Active blood sugar diagnostic (Contour Next Test Strips) stripIndications:D iabetes mellitus without complication (HC) Dispense item covered by pt ins. E11.9 NIDDM type II - Test 1 time/day 100 Each 3 07/13/19 24 Active semaglutide (RYBELSUS) 7 mg tabletIndications: Diabetes mellitus without complication (HC) Take 7 mg by mouth once daily before a meal. Start after taking Semaglutide 3 mg daily for one month go to 7 mg daily. 90 Tablet 3 07/13/19 24 Active sennosides (SENNA) 8.6 mg tablet Take 8.6 mg by mouth once daily. Active oxyCODONE (ROXICODONE) 5 mg immediate release tabletIndications: Spinal stenosis of lumbar region, unspecified whether neurogenic claudication present Take 1 Tablet (5 mg) by mouth 2 times daily if needed for Pain. 30 Tablet 12/23/19 24 Active tamsulosin (FLOMAX) 0.4 mg capsuleIndications :BPH without urinary obstruction TAKE 2 CAPSULES BY MOUTH DAILY WITH OR AFTER SUPPER 180 Capsule 3 12/27/19 24 Active lidocaine 4 % topical patchIndications:S tressa stenosis of lumbar region with neurogenic claudication Apply 1 Patch on dry, clean, hairless skin once daily if needed for Pain. Apply to intact skin to cover most painful area for max 12hr per 24hr period. 30 Patch 5 12/30/19 24 Active metoprolol tartrate (LOPRESSOR) 25 mg tabletIndications: Atherosclerosis of navajo coronary artery of navajo heart without angina pectoris 12.5 mg twice daily. That is 1/2 tablet twice daily. 90 Tablet 3 01/14/20 24 Active colchicine 0.6 mg tabletIndications: Acute idiopathic gout of ankle, unspecified laterality 2 tabs now. Repeat with 1 tab after an hour. Then 1 tab daily until 2 days after symptom relief for 1week. Use as needed for gout flare 20 Tablet 3 01/14/20 24 Active nitroglycerin (NITROSTAT) 0.4 mg sublingual tabletIndications: Atherosclerosis of navajo coronary artery of navajo heart without angina pectoris Place 1 Tablet (0.4 mg) under the tongue every 5 minutes if needed for Chest Pain. 25 Tablet 5 01/14/20 24 Active furosemide (LASIX) 20 mg tabletIndications: Essential hypertension Take 0.5 Tablets (10 mg) by mouth once daily in the morning. 45 Tablet 3 01/14/20 24 Active sertraline (ZOLOFT) 100 mg tabletIndications: Anxiety TAKE 1 AND 1/2 TABLETS BY MOUTH EVERY DAY 135 Tablet 3 01/14/20 24 Active buPROPion (WELLBUTRIN XL) 300 mg Extended-Release tabletIndications: Dysthymic disorder,Depressio n, recurrent (HC) Take 1 Tablet (300 mg) by mouth once daily. 90 Tablet 3 01/14/20 24 Active simvastatin (ZOCOR) 80 mg tabletIndications: Other hyperlipidemia Take 1 Tablet (80 mg) by mouth at bedtime. 90 Tablet 3 01/14/20 24 Active FreeStyle Marina 3 Sensor Plus for continuous blood glucose monitor (CGM)Indications:D iabetes mellitus without complication (HC) To be used to read blood sugars, follow industrial cafeteria manager directions. 6 Each 3 02/08/20 24 Active glipiZIDE extended-release (GLUCOTROL XL) 2.5 mg Extended-Release tabletIndications: Type 2 diabetes mellitus with other diabetic kidney complication (HC) Take 1 Tablet (2.5 mg) by mouth once daily before a meal. 90 Tablet 3 04/11/20 24 Active calcitonin salmon, 200 units per actuation, nasal (MIACALCIN, FORTICAL) 200 unit/actuation nasal spray As directed. 10/28/19 24 025 Discontin ued(*Uma ent states no longer taking) Hospital, Clinic, or Other Facility Administered Medication Ordered Dose Route Frequency Start Date End Date Status denosumab (PROLIA) injection 60 mgIndications:Osteoporosis , unspecified osteoporosis type, unspecified pathological fracture presence 60 mg SubQ Q 26 WEEKS 02/21/2024 02/19/2025 Active Active Problems Problem Noted Date Diagnosed Date History of gout 01/13/2024 Spinal stenosis of lumbar region 11/03/2023 Pulmonary fibrosis, unspecified 10/07/2023 Depression, recurrent 01/26/2023 Prostate cancer 10/30/2022 Overview (10/30/2022): A) PROSTATE, RIGHT LATERAL BASE, NEEDLE CORE BIOPSIES: 1. Prostatic tissue without evidence of neoplasm 2. Negative for atypical foci, high grade prostatic intraepithelial neoplasia, or malignancy B) PROSTATE, RIGHT, NEEDLE CORE BIOPSIES: 1. Prostatic tissue without evidence of neoplasm 2. Negative for atypical foci, high grade prostatic intraepithelial neoplasia, or malignancy C) PROSTATE, LEFT LATERAL BASE, NEEDLE CORE BIOPSIES: 1. 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 Total surface area involved: 30% 3. Number of needle biopsy cores involved: 4 of 9 4. Perineural invasion: absent D) PROSTATE, LEFT, NEEDLE CORE BIOPSIES: 1. 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 Total surface area involved: 15% 3. Number of needle biopsy cores involved: 1 of 5 4. Perineural invasion: absent Received Lupron on 07/16/22. He has received 4 weeks of Radiation therapy. He next sees Dr. Walton in 01/2023. Type 2 diabetes mellitus wit h other diabetic kidney complication 06/18/2022 CKD (chronic kidney disease) stage 4, GFR 15-29 ml/min 02/22/2020 Overview (02/22/2020): CHRONIC KIDNEY DISEASE Stage 3b A2 as of 02/22/2020. Dr. Gonzalez of Nephrology stated his hyperkalemia is due to his diabetic chronic kidney disease. Essential hypertension 09/07/2019 H. pylori infection 03/09/2017 Overview (03/09/2017): EGD 03/2017 H. 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 08/21/2016 Sleep disorder, circadian, advanced sleep phase type 12/09/2015 Sensorineural hearing loss, bilateral 01/21/2012 Colon polyp 10/30/2011 Overview (03/05/2021): Colonoscopy 10/2011 polyps repeat in 3 years Colonoscopy 08/2014 polyp repeat in 5 years Colonoscopy 03/2021 2-TA, repeat in 5 years GERD (gastroesophageal reflux disease) 1 IVORY 09/10/2008 AHI-18, many c entrals 04/16/2021 AHI-23 FFM heated 09/17/2008 Other and unspecified hyperlipidemia 08/17/2006 Gout, unspecified 08/17/2006 Type II or unspecified type diabetes mellitus without mention of complication, not stated as uncontrolled 08/17/2006 Overview (03/15/2023): Higher dose Rybelsus caused Gastrointestinal medication side effects and fatigue. Dysthymic disorder 08/17/2006 Resolved Problems Problem Noted Date Diagnosed Date Resolved Date Other emphysema 08/12/2020 08/25/2023 Encounters Date Type Department Care Team Description 05/12/2024 10:55 AM PETROLEUM ENGINEERING TEACHER Office Visit [facility] [address] [place] [address] Sravan Aparicio MD Neurologic Problem (Concerns with neuropathy affecting balance) 05/12/2024 Travel 05/09/2024 Transcribe Orders [facility] [phone] Junior Collins PA 04/12/2024 Orders Only [facility] [address] [place] [address] Sim Wynne MD <No scans attached> 04/11/2024 1:20 PM PETROLEUM ENGINEERING TEACHER Office Visit [facility] [address] [place] [address] Sim Wynne MD Procedure (Bilateral L3-4 TFESI) 04/10/2024 Travel 04/01/2024 Travel 03/24/2024 Orders Only [facility] Scanner 1 scan: (1-Ord) ALMA DERMATOLOGY, MOHS PROCEDURE, 03/24/2024 03/17/2024 Transcribe Orders [facility] [address] [place] [address] Sim Wynne MD 03/16/2024 11:45 AM PETROLEUM ENGINEERING TEACHER Orders Only [facility] [address] [place] [address] Lab, [facility] 03/16/2024 Travel 03/08/2024 Orders Only [facility] Scanner 1 scan: (1-Ord) ALMA DERM, JANETHVE BX, 03/08/2024 02/21/2024 10:15 AM CDT Nurse/Clinic Staff Only [facility] [address] [place] [address] Immunization/Injecti on (PROLIA INJECTION PER DR. RENEE) 02/21/2024 Travel 2024 Travel from Last 3 Months Immunizations Name Administration Dates Next Due COVID-19 vaccine (Redbeacon-Bio NTech 30mcg/0.3mL) PF, MDV 04/01/2021,08/27/2020,08/06/2020 HepA-HepB (Twinrix) 03/01/2022,05/22/2003,2002 INFLUENZA, IIV3 PF (AGE >= 6 MO) 02/03/2011,01/01,03/05/2009 Influenza A (H1N1), Inactivated 04/17/2009 Influenza Virus, Unspecified 02/03/2012 Influenza, High-dose Inactivated 024,02/02/2019,02/04/2018,02/11,02/12/2016,01/23/2015 Influenza, High-dose Quadriv alent Inactivated 02/05/2023,01/23/2022,01/19/2020 Influenza, IIV3 (Age >=3 years) 01/28/20 13,02/03/2011,01/14/2010,03/05,03/02/2008 Influenza, IIV4 04/17/2009 Influenza, Inactivated AIIV4 (Age 65+ Years) Preserv Free 04/01/2021 Pneumococcal Conj 20-valent (Prevnar 20) 03/18/2022 Pneumococcal Poly,23-Valent (Pneumovax) 03/15/2003 Pneumococcal conj 13-Valent (Prevnar 13) 02/26/2016 RSV, Recombinant ADJ Reconst ituted (Arexvy 120MCG/0.5mL) 03/05/2023 Td (Age >=7 Years) 02/19/2004,05/12/2002 Tdap 10/03/2021,11/04/2012 Zoster (Shingrix-RZV, recombinant) 06/08/2022, Zoster (Zostavax-ZVL, live) 04/30/2006 Family History Medical History Relation Name Comments Cancer-prostate Brother Asthma Father Diabetes Father Stroke Father at age 74 Cancer Mother of lung ca at 64 Diabetes Paternal Grandmother Relation Name Status Comments Brother Alive Father Mother Paternal Grandmother Social History Tobacco Use Types Packs/Day Years Used Date Smoking Tobacco: Former Cigarettes 2 35 0 [birth year]/29/1956 - 12/30/1991 Smokeless Tobacco: Never Tobacco Cessation:Counseling Given: Yes Comments:smoked 2-3 PPD for 35 yrs. Alcohol Use Standard Drinks/Week Comments Yes 7 (1 standard drink = 0.6 oz pur e alcohol) 1 scotch every night [facility] Utilities Answer Date Recorded Do you have trouble paying f or utilities (for example, heat, electricity, water, phone)? Yes 05/12/2024 PHQ-2 Answer Date Recorded PHQ-2 TOTAL SCORE 0 01/14/2024 Social Connections Answer Date Recorded Do you often feel lonely or isolated from those around you? 0 05/12/2024 Financial Resource Strain Answer Date R ecorded Difficulty of Paying Living Expenses 3 05/12/2024 Difficulty of Paying Living Expenses Not on file 05/12/2024 Food Insecurity Answer Date Recorded Do you worry your food will run out before you are able to buy more? 1 05/12/2024 Transportation Needs Answer Date Record ed Does lack of transportation keep you from medical appointments? 1 05/12/2024 Does lack of transportation keep you from work, meetings or getting things that you need? Not on file 05/12/2024 Housing Stability Answer Date Recorded What is your housing situation today? 1 05/12/2024 Sex and Gender Information Value Date Recorded Sex Assigned at Male 02/21/2020 10:06 AM CDT Legal Sex Male 5:24 AM PETROLEUM ENGINEERING TEACHER Gender Identity Male 02/21/2020 10:06 AM CDT Sexual Orientation Straight 02/21/2020 10 :06 AM CDT Occupation Industry Job Start Date Job End Date Retired Not on file Not on file Not on file Obstetrics History Last Filed Vital Signs Vital Sign Reading Time Taken Comments Blood Pressure 119/65 05/12/2024 10:59 AM PETROLEUM ENGINEERING TEACHER Pulse 74 05/12/2024 10:59 AM PETROLEUM ENGINEERING TEACHER Temperature 36.3 C (97.3 F) 05/12/2024 10:59 AM PETROLEUM ENGINEERING TEACHER Respiratory Rate 16 02/08/2024 9:59 AM CDT Oxygen Saturation 98% 05/12/2024 10:59 AM PETROLEUM ENGINEERING TEACHER Inhaled Oxygen Concentration - - Weight 89.5 kg (197 lb 4.8 oz) 05/12/2024 10:59 AM PETROLEUM ENGINEERING TEACHER Height 179.7 cm (5' 10.75) 02/07/2024 8:41 AM C DT Body Mass Index 27.71 02/07/2024 8:41 AM CDT Plan of Treatment Upcoming Encounters Date Type Department Care Team (Late st Contact Info) Description 05/18/2024 11:00 AM PETROLEUM ENGINEERING TEACHER Ancillary Procedure [facility] [address] [place] [address] 05/23/2024 2:00 PM PETROLEUM ENGINEERING TEACHER Patient Outreach [facility] [address] [place] [address] Audrey Prasad, RN [address] [place] [address] 06/15/2024 10:45 AM PETROLEUM ENGINEERING TEACHER Orders Only [facility] [address] [place] [address] [facility] 06/20/2024 10:50 AM PETROLEUM ENGINEERING TEACHER Office Visit [facility] [address] [facility] [address] Sravan Aparicio MD [address] [place] [address] 08/24/2024 1:00 PM CDT Office Visit [facility] [address] [place] [address] [place] [phone] Felix Renee MD [address] [place] [address] [place] [id number] 08/24/2024 1:30 PM CDT Nurse/Clinic Staff Only [facility] [address] [place] [address] [place] [phone] Health Maintenance Due Date Last Done Comments Medicare Wellness for age 65+ 01/14/2025, 08/12/2020, 09/14/2012, Additional history exists Depression screening for age 12+ 01/16/2025 01/17/2024, 01/14/2024, 09/29/2023, Additional history exists BMI (ht and wt on same day) for age 18+ 02/06/2025 02/07/2024, 01/14/2023, 04/08/2022, Additional history exists Tetanus booster 10/04/2031 10/03/2021, 07/0 08/2012, 02/19/2004, Additional history exists Tdap Completed 10/03/2021, 11/04/2012 Pneumococcal series for age 50+ Completed 03/18/2022, 02/26/2016, 03/15/2003 Zoster (shingles) series for age 50+ Completed 06/08/2022, 03/01/2022, 04/30/2006 RSV vaccine for adults or Completed 03/05/2023 COVID-19 vaccine series Completed 02/01/20, 02/05/2023, 01/23/2022, Additional history exists Influenza for age 65+ Completed 02/01/2024 , 02/05/2023, 01/23/2022, Additional history exists Procedures Procedure Name Priority Date/Time Associated Diagnosis Comments AMB EPIDURAL STEROID INJECTION Routine 04/12/2024 2:32 PM PETROLEUM ENGINEERING TEACHER Spinal stenosis of lumbar region with neurogenic claudication Bilateral hip pain AMB EPIDURAL STEROID INJECTION Routine 04/11/2024 12:00 AM PETROLEUM ENGINEERING TEACHER Low back pain Bilateral leg pain SCAN-OPERATIVE/PROC EDURE REPORT 03/24/2024 12:00 AM PETROLEUM ENGINEERING TEACHER SCAN-OPERATIVE/PROC EDURE REPORT 03/08/2024 12:00 AM PETROLEUM ENGINEERING TEACHER from Last 3 Months Results * AMB EPIDURAL STEROID INJECTION (04/11/2024 12:00 AM PETROLEUM ENGINEERING TEACHER) us Sim Wynne MD NEUROLOGY ORD Final Resu lt * SCAN-OPERATIVE/PROCEDURE REPORT (03/24/2024 12:00 AM PETROLEUM ENGINEERING TEACHER) us Scanner OTHER Final Result * SCAN-OPERATIVE/PROCEDURE REPORT (03/08/2024 12:00 AM PETROLEUM ENGINEERING TEACHER) us Scanner OTHER Final Result from Last 3 Months Insurance [employer] [place] [address] MEDICARE PART B HB ONLY [employer]UE [employer] BLUE HB ONLY Advance Directives Documents on File Type Date Recorded Patient Substance Abuse Specialist Expl anation Healthcare Directive 01/27/2012 3:08 PM [facility] DIRECTIVE, [facility], 01/20/2012 Care Teams Home Visits Nurse Relationship Specialty Start Date End Date Sravan Aparicio MD [address] [place] [address] PCP - General 11/12/05 Uzma Aguirre AuD [address] [place] [address] Mental Health Line Server- ED Audiology 01/21/12 Florentin Walton MD [address] [place] [address] [place] [address] Surgery - Urology 10/30/22 Eliot Lerma MD [address] [place] [address] Nephrology 10/30/22 Fernando Fields MD [address] [place] [address] Internal Medicine 10/30/22 Sim Wynne MD [address] [place] [address] Sports Medicine - Family Medicine 10/30/22 Ruben Carpenter DPM [address] [place] [address] Surgery - Podiatric 10/30/22
--- OUTSIDE RECORDS SUMMARY | 2024-05-14 23:26 | XMS_ITS | Continuity of Care Document ---
Author Name [facility] User [email or web address] Address Unknown Organization Unknown Address Unknown Procedures FILTER APPLIED:Only known Procedures with Onset Date within the last 5 years Procedure Date Procedure Provider Additiona l Information Status CBC AND DIFFERENTIAL (11285) Completed PERIPHERAL BLD MORPHOLOGY (11705) Completed VITAMIN B12 (38496) Comp leted RETICULOCYTES (05169) Co mpleted FERRITIN (27235) Complet ed Encounters FILTER APPLIED:Only known Encounters with Admission Date within the last 5 years Encounter Location Admission Discharge Billing Code Director [facility] A ttender Unknown [id number]
--- OUTSIDE RECORDS SUMMARY | 2024-05-14 23:26 | XMS_ITS ---
Author Organization [facility] Address [address] [place] [address] Care Team Providers Care Dean For Student Affairs Name Role Phone Unavailable Unavailable Unavailable Surgery Details Not on file Complications Check Surgery Details section. Procedure Estimated Blood Loss Check Surgery Details section. Procedure Findings Check Surgery Details section. Procedure Specimens Taken Check Surgery Details section.
--- OUTSIDE RECORDS SUMMARY | 2024-05-14 23:26 | XMS_ITS ---
Author Organization [facility] Address [address] [place] [address] Care Team Providers Care Cash Grain Grower Name Role Phone Unavailable Primary Care Provider Unavailabl e Active Problems * This document contains information received from the source organization and may not represent a complete record from that organization. Problem Noted Date Diagnosed Date Hematochezia 09/25/2023 Primary Malignant Neoplasm Of Prostate 3 Cancer Staging:Clinical stage from 06/11/2022:Stage IIB(cT1c, cN0, cM0, PSA: 16.2, Grade Group: 2) - Unsigned Current Oncology Plans No current plan information found. Past Plans No past plan information found. Radiation Treatments * Plan Last Treated On Elapsed Days Fractions Treated Prescribed Fraction Dose Prescribed Total Dose [id number] 09/21/2022 27 20 of 20 300 cGy 6,000 cGy Reference Point Last Treated On Elapsed Days Session Dose Total Dose [id number] 09/21/2022 27 300 cGy 6,000 cGy
--- OUTSIDE RECORDS SUMMARY | 2024-05-14 23:26 | XMS_ITS | Encounter Summary ---
Author Organization [facility] Address [address] [place] [id number] Care Team Providers Care Java Technical Architect Name Role Phone Unavailable Primary Care Provider Unavailabl e Reason for Referral * Outpatient (Routine) - Authorized Specialty Diagnoses / Procedures Referred By Pan clark Referred To Contact Radiation Oncology Shelbie Castro APRN, C.N.P., D.N.P. [address] [place] [phone] Phone: tel: fax: Fernando Fields M.D. [address] [place] [phone] Phone: tel: fax: Referral ID Status Reason Start Date Expiration Date V isits Requested Visits Authorized [id number] Authorized 03/16/2024 09/15/2025 1 1 Scheduling Instructions A few days after PSA draw at [facility] EKEEPING MANAGER Encounter Details Date Type Department Care Team (Late st Contact Info) Description 03/16/2024 Clinical Communication Department of Radiation Oncology in [place], [place] [address] [place] [phone] Shelbie Csatro APRN, C.N.P., D.N.P. [address] [place] [phone] Social History Tobacco Use Types Packs/Day Years Used Date Smoking Tobacco: Former Cigarettes 2 35 0 12/29/1956 - 12/30/1991 Passive Smoke Exposure: Past Smokeless Tobacco: Never Alcohol Use Standard Drinks/Week Comments Yes 14 (1 standard drink = 0.6 oz pu re alcohol) 1-2 scotch every night Dental Answer Date Recorded Dental: Regular Dentist Unknown 07/15/19 Sex and Gender Information Value Date Recorded Sex Assigned at Male 09/18/2023 5:44 PM CDT Legal Sex Male 10:10 AM CDT Gender Identity Male 09/18/2023 5:44 PM CDT Sexual Orientation Straight 09/18/2023 5: 44 PM CDT documented as of this encounter Miscellaneous Notes * Telephone Encounter - Shelbie Castro APRN, C.N.P., D.N.P. - 03/16/2024 9:27 AM CST SUBJECTIVE DIAGNOSIS 1. Primary Malignant Neoplasm Of Prostate (HCC) 2. Hematochezia HISTORY OF PRESENT ILLNESS Addi Oliveira is a 84 y.o. male with stage IIB (cT1c, cN0, cM0, PSA 16.2, Grade Group 2) adenocarcinoma of the prostate. He completed definitive radiation therapy to the prostate and seminal vesicles on September 21, 2022. He has also received 12 months of ADT. His oncologic history is as follows: Oncology History Primary Malignant Neoplasm Of Prostate (HCC) 03/09/2022 Other Patient contacted PCP regarding urinary urgency and increased nocturia. Recommended PSA. PSA 8.59 ng/mL. Referral to Urology. 04/09/[address] Florentin Walton, Urology. XIAO demonstrated normal prostate, 50 g, no nodules. Recommended biopsy. PSA 16.19 ng/mL 04/24/2022 Critical Imaging Bone scan Impression 1. There is no convincing evidence of skeletal metastasis. 2. There are benign-appearing arthritic changes in multiple locations. 3. Focal uptake in the right approximately 7th anterolateral rib is nonspecific but has a low likelihood of representing skeletal metastasis. This more likely represents a healing fracture. Please correlate this clinically. 06/11/2022 Biopsy/Pathology Final Diagnosis A) PROSTATE, RIGHT LATERAL BASE, NEEDLE CORE [...] 7/10, ISUP Grade group 2, with Lion pattern4 adenocarcinoma representing approximately 40% of tumor 2. Total surface area involved: 30% 3. Number of needle biopsy cores involved: 4 of 9 4. Perineural invasion: absent D) PROSTATE, LEFT, NEEDLE CORE BIOPSIES: 1. Prostatic adenocarcinoma, Oilton's grade 3 + 4 = 7/10, ISUP Grade group 2, with Lion pattern4 adenocarcinoma representing approximately 20% of tumor 2. Total surface area involved: 15% 3. Number of needle biopsy cores involved: 1 of 5 4. Perineural invasion: absent 07/09/2022 - 07/2023 Biological/Targeted/Hormone Therapy 07/09/2022: 45 mg (6 month) leuprolide injection at [facility]. 01/14/2023: 45 mg (6 month) leuprolide injection under the care of Dr. Walton. (Final injection) 07/30/2022 Critical Imaging X-ray right ribs demonstrated no visualized bony lesion or fracture of the right 7th rib. X-ray of the orbits demonstrated no metastatic objects identified around the eye globes. MRI of the prostate demonstrated prostate volume of 28 cc. There was a lesion measuring 1.2 x 0.9 x0.9 cm located in the peripheral zone, right lateral at mid gland, PI-RADS 4. A second lesion measuring 1.5 x 0.9 x 1.8 cm was located in the peripheral zone, left posterior lateral at mid gland, PI-RADS 5. Capsule was indeterminate in the left. Neurovascular bundle invasion was indeterminate in the left. Seminal vesicle invasion or other organ invasion was absent. Negative for suspicious lymph nodes. Negative for suspicious bone lesions. 08/25/2022 - 09/21/2022 Radiation Therapy Radiation Therapy Treatment Details (08/25/2022 - 09/21/2022) Site: Prostate Technique: IMRT Goal: Curative Dose: 6000 cGy Fractions: 20 01/05/2023 Other 01/05/2023: PSA 0.22 ng/mL 03/31/2023: PSA 0.09 ng/mL 07/13/2023: PSA 0.06 ng/mL 10/01/2023 Surgery and Procedures EGD Post-op Diagnoses: - Normal esophagus. - Normal stomach. - Erythematous duodenopathy in the bulb 2nd to NSAIDs. - No specimens collected. - No signs of recent or active GI bleeding. 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 Treated with argon plasma coagulation (APC). - The examination was otherwise normal. - No specimens collected. 01/11/2024 Other 01/11/2024: PSA 0.03 ng/mL 02/01/2024: PSA <0.04 ng/mL 02/07/2024: Testosterone total 24 ng/dL INTERVAL HISTORY The patient reports doing well overall. He reports rectal bleeding happens every month and a half for so only when he is passing a hard stool. He is currently using dxwf-ktg-kwpjxik stool softeners, but was unsure of the name. Previous to the most recent episode he was only taking them intermittently but he has started taking them on a more regular basis. He reports bleeding only happening over 1bowel movement and then completely resolves. He denies any pain with bowel movements. He is otherwise doing well and reports no other changes. ASSESSMENT / PLAN #1 Stage IIB (cT1c, cN0, cM0, PSA 16.2, Grade Group 2) adenocarcinoma of the prostate #2 Androgen deprivation therapy initiated on July 09, 2022 with a leuprolide 45 mg injection; leuprolide 45 mg injection on January 14, [address] Walton; no further ADT planned #3 Intensity modulated radiotherapy to the prostate and proximal seminal vesicles initiated on August 25, 2022; completed on September 21, 2022 #4 Hematochezia with anemia, history of hemorrhoidectomy #5 Gait instability, possibly secondary to anemia and diabetic neuropathy #6 Depression, on Wellbutrin and Zoloft It was a pleasure to meet with Alexandre today. He is doing well now a year and a half out from [facility]. He is experiencing scant rectal bleeding only when passing hard stools every 1-2 months. I discussed the importance of continued tvrk-atw-dzyjqrd stool softener use on a daily basis to maintain soft easy to pass stools. He plans to continue utilizing that. We reviewed his most recent PSA results of 0.03 in January 2024 and undetectable in February 2024 and discussed what this means in relation to his prostate cancer. He is following with both Dr. Walton and us. I discussed moving forward he only has a follow up with 1 of us. They would prefer to follow with us rather than Dr. Walton. I discussed that we would continue monitoring his PSA at [facility] in [place] every 6 months. We will plan for a follow up visit around the 5 year kristie of his radiation treatment, September 2027. I discussed the importance of contacting our team right away if rectal bleeding becomes more persistent or if he develops any other big changes to bowel or bladder function they feel is related to radiation treatment prior to that 5 year visit. He will contact us with questions or concerns. He verbally expressed his understanding of the plan. EDUCATION Ready to learn, no apparent learning barriers were identified; learning preferences include listening. Explained diagnosis and treatment plan; patient expressed understanding of the content. Signed by: Shelbie Castro APRN, Jose.N.PAshley, D.N.P. 03/16/2024 9:28 AM HOUSEKEEPING MANAGER [facility] [address] [place] [address] EKEEPING MANAGER documented in this encounter Plan of Treatment Scheduled Orders Name Type Priority Associated Diagnoses Orde r Schedule PSA (Prostate-Specific Antigen), Diagnostic Lab Routine Primary Malignant Neoplasm Of Prostate (HCC) Expected: 09/13/2024 (Approximate), Expires: 06/16/2025 PSA (Prostate-Specific Antigen), Diagnostic Lab Routine Primary Malignant Neoplasm Of Prostate (HCC) Expected: 03/16/2025 (Approximate), Expires: 06/16/2025 PSA (Prostate-Specific Antigen), Diagnostic Lab Routine Primary Malignant Neoplasm Of Prostate (HCC) Expected: 09/14/2025 (Approximate), Expires: 12/23/2025 PSA (Prostate-Specific Antigen), Diagnostic Lab Routine Primary Malignant Neoplasm Of Prostate (HCC) Expected: 03/16/2026 (Approximate), Expires: 06/24/2026 PSA (Prostate-Specific Antigen), Diagnostic Lab Routine Primary Malignant Neoplasm Of Prostate (HCC) Expected: 09/10/2027, Expires: 09/14/2028 PSA (Prostate-Specific Antigen), Diagnostic Lab Routine Primary Malignant Neoplasm Of Prostate (HCC) Expected: 03/17/2027 (Approximate), Expires: 03/17/2028 PSA (Prostate-Specific Antigen), Diagnostic Lab Routine Primary Malignant Neoplasm Of Prostate (HCC) Expected: 09/14/2026 (Approximate), Expires: 09/15/2027 Scheduled Referrals Name Type Priority Associated Diagnoses Orde r Schedule Radiation Oncology office visit (clinic) Outpatient Referral Routine Expected: 09/15/2027, Expires: 09/14/2028 documented as of this encounter Visit Diagnoses Diagnosis Primary Malignant Neoplasm Of Prostate (HCC)- Primary Hematochezia documented in this encounter
--- OUTSIDE RECORDS SUMMARY | 2024-05-14 23:26 | XMS_ITS | Clinical Summary ---
Author Organization [facility] Address [address] [place] [address] Care Team Providers Care Tube Test Technician Name Role Phone Unavailable Primary Care Provider Unavailabl e Source Comments Patient records contain information from all sites at [facility]. For routine questions regarding patient records, call [phone] during business hours, M-F 8:00 AM - 5:00 PM Central Time. Record requests for emergency care only can be directed to [phone] at any time.[facility] Allergies Active Allergy Reactions Criticality Noted Date Comments Lisinopril Other (see comments) Medium 09/07/2019 Kidney labs were affected Medications * This document contains information received from the source organization and may not represent a complete record from that organization. aspirin [address] tablet Take by mouth daily. 8 Active metFORMIN (GLUCOPHAGE) 500 mg tablet TAKE 1 TABLET BY MOUTH IN THE MORNING AND 1 IN THE EVENING WITH MEALS 2 Active omega 4-meg-xol-fish oil 1,200 (144-216) mg capsule Take by mouth daily. 8 Active Contour Next Test Strips USE 1 STRIP ONCE DAILY DIRECTED 3 Active buPROPion XL (WELLBUTRIN XL) 150 mg 24 hr tablet TAKE 1 TABLET BY MOUTH IN THE MORINING 3 Active furosemide (LASIX) 20 mg tablet TAKE 1 TABLET BY MOUTH IN THE MORINING 3 Active simvastatin (ZOCOR) 80 mg tablet Take 20 mg by mouth at bedtime. 3 Active sertraline (ZOLOFT) 100 mg tablet Take 100 mg by mouth daily. 3 Active tamsulosin (FLOMAX) 0.4 mg 24 hr capsule Take 1 capsule (0.4 mg total) by mouth 2 (two) times a day. 60 capsule 1 3 Active colchicine (COLCRYS) 0.6 mg tablet 2 tabs now. Repeat with 1 tab after an hour. Then 1 tab daily until 2 days after symptom relief for 1week 3 Active ferrous sulfate 325 mg (65 mg iron) DR tablet Take 325 mg by mouth 2 (two) times a week. 2 Active flaxseed oiL 1,000 mg capsule Take by mouth daily. 8 Active metoprolol tartrate (LOPRESSOR) 25 mg tablet Metoprolol 25 mg in the morning and 50 mg in the evening. 3 Active niacin 500 mg ER capsule Take 500 mg by mouth daily. 3 Active nitroglycerin (NITROSTAT) 0.[address] 0.4 mg under the tongue every 2 (two) hours as needed for chest pain. 3 Active predniSONE (DELTASONE) 10 mg tablet Take 10 mg as needed for gout flare 2 Active semaglutide (RYBELSUS) 7 mg tablet tablet Take 7 mg by mouth daily. 3 Active hydrocortisone (ANUSOL-HC) 2.5 % rectal cream Apply 1 Application topically 2 (two) times a day. 4 Active Lactobacillus acidophilus 10 billion cell capsule Take 1 capsule by mouth daily. Active cyanocobalamin, vitamin B-12, (VITAMIN B-12 ORAL) Take 1 capsule by mouth daily. Active glyBURIDE (DIABETA) 2.5 mg tablet Take 2.5 mg by mouth 2 (two) times a day with meals. 3 Active niacinamide 500 mg tablet Take 500 mg by mouth daily. Active DME CPAP 1 each at bedtime. DME Order Active Active Problems Problem Noted Date Diagnosed Date Hematochezia 09/25/2023 Primary Malignant Neoplasm Of Prostate 3 Cancer Staging:Clinical stage from 06/11/2022:Stage IIB(cT1c, cN0, cM0, PSA: 16.2, Grade Group: 2) - Unsigned Encounters Date Type Department Care Team Description 03/16/2024 Clinical Communication Department of Radiation Oncology in [place], [place] [address] [place] [phone] Shelbie Castro APRN, C.N.P., D.N.P. from Last 3 Months Family History Medical History Relation Name Comments Prostate cancer Brother Asthma Father Diabetes Father Stroke Father Lung cancer Mother Relation Name Status Comments Brother Father Mother Social History Tobacco Use Types Packs/Day Years Used Date Smoking Tobacco: Former Cigarettes 2 35 0 12/29/1956 - 12/30/1991 Passive Smoke Exposure: Past Smokeless Tobacco: Never Tobacco Cessation:Counseling Given: Not Answered Alcohol Use Standard Drinks/Week Comments Yes 14 [...] Orientation Straight 09/18/2023 5: 44 PM CDT Last Filed Vital Signs Vital Sign Reading Time Taken Comments Blood Pressure 135/70 10/01/2023 9:59 AM CDT Pulse 59 10/01/2023 9:59 AM CDT Temperature 36.7 C (98.1 F) 10/01/2023 9:47 AM CDT Respiratory Rate 13 10/01/2023 9:59 AM CDT Oxygen Saturation 96% 10/01/2023 9:59 AM CDT Inhaled Oxygen Concentration - - Weight 95.3 kg (210 lb) 10/01/2023 8:11 AM CDT Height - - Body Mass Index - - Plan of Treatment Health Maintenance Due Date Last Done Comments COVID-19 Vaccine ( season) 2024 02/05/2023, 01/23/2022, 04/01/2021, Additional history exists Depression Screening (Annual PHQ-2) 05/03/2024 Fall Risk Screen (Annual) 05/03/2024 DTaP,Tdap,and Td Vaccines (3 - Td or Tdap) 10/04/2031 10/03/2021, 11/04/2012, 02/19/2004, Additional history exists Pneumococcal vaccine (50+ years) Completed 03/18/2022, 02/26/2016, 03/15/2003 Zoster Vaccines Completed 06/08/2022, 02/02, 04/30/2006 RSV vaccine - (32-36 weeks) or 60+ years Completed 03/05/2023 Influenza Vaccine Completed 02/01/2024, , 01/23/2022, Additional history exists HPV Vaccines Aged Out No longer eligi ble based on patient's age to complete this topic IPV Vaccines Aged Out No longer eligi ble based on patient's age to complete this topic Medical Devices Implanted Type Area Liquor Maker Device Identifier Shelf Expiration Date Model / Serial / Lot Cardiac Other Cardiac Other Sternum Description:1960 sternum was wired Insurance MEDICARE [facility]
--- OUTSIDE RECORDS SUMMARY | 2024-05-14 23:26 | XMS_ITS | Referral Summary ---
Author Organization [facility] Address [address] [place] [address] Care Team Providers Care Roller Printing Supervisor Name Role Phone Unavailable Primary Care Provider Unavailabl e Source Comments Patient records contain information from all sites at [facility]. For routine questions regarding patient records, call [phone] during business hours, M-F 8:00 AM - 5:00 PM Central Time. Record requests for emergency care only can be directed to [phone] at any time.[facility] Encounters Date Type Department Care Team Description 03/16/2024 Clinical Communication Department of Radiation Oncology in [place], [place] [address] [place] [phone] Shelbie Castro APRN, C.N.P., D.N.P. from Last 3 Months Allergies Active Allergy Reactions Criticality Noted Date [...] THE EVENING WITH MEALS 2 Active omega 7-qrz-xxw-fish oil 1,200 (144-216) mg capsule Take by [...] Hematochezia 09/25/2023 Primary Malignant Neoplasm Of Prostate Cancer Staging:Clinical stage from 06/11/2022:Stage IIB(cT1c, cN0, cM0, PSA: 16.2, Grade Group: 2) - Unsigned Social History Tobacco Use Types Packs/Day Years [...] Mass Index - - Plan of Treatment Not on file Medical Devices Implanted Type Area Food Taster Device Identifier Shelf Expiration Date Model / Serial / Lot Cardiac Other Cardiac Other Sternum Description:1960 sternum was wired Insurance MEDICARE [facility] [place] [address]
[2024-05-14 23:27] VITALS: BP 114/69; PULSE 70; RESP 16; TEMP 35.6; O2SAT 95; BMI 27.1
[2024-05-14 23:42] VITALS: PULSE 71; O2SAT 98
[2024-05-14 23:45] VITALS: PULSE 71; O2SAT 95
[2024-05-15] VITALS (17 sets, daily range): BP systolic 95–136; BP diastolic 59–79; PULSE 72–81; RESP 18; O2SAT 89–95
--- NOTE | 2024-05-15 00:07 | CRLHL7_ITS ---
For Patients: As a result of the Century Cures Act, medical imaging exams and procedure reports are released immediately into your electronic medical record. You may view this report before your referring provider. If you have questions, please contact your health care provider. Indication: Fall Technique: Noncontrast CT through the thoracic spine with multiplanar reformats Comparison: None Findings: Alignment: No acute malalignment. Bones: Rigid spine. No acute thoracic vertebral fracture. Thoracic levels: No acute abnormality appreciated. No high-grade central or foraminal stenosis appreciated. Soft tissues: No acute paraspinal abnormality appreciated. Impression: No acute thoracic vertebral abnormality appreciated. Please note that all CT scans at this facility use dose modulation, iterative reconstruction, and/or weight-based dosing when appropriate to reduce radiation dose to as low as reasonably achievable. Dictated by Misael Kingston MD @ 05/15/2024 1:16:47 AM (Electronically Signed)
--- NOTE | 2024-05-15 00:07 | CRLHL7_ITS ---
For Patients: As a result of the Century Cures Act, medical imaging exams and procedure reports are released immediately into your electronic medical record. You may view this report before your referring provider. If you have questions, please contact your health care provider. Indication: Fall Technique: Noncontrast CT through the lumbar spine with multiplanar reformats Comparison: Lumbar spine CT performed 10/27/2023 Findings: Alignment: No acute malalignment appreciated. Bones: Chronic L1 and L4 Schmorl`s nodes with associated height loss. No acute fracture of the lumbar spine is appreciated. Subacute to chronic transverse process fractures of L1 and L2 on the left. Lumbar levels: No acute abnormality appreciated. Moderate spondylosis. Soft tissues: No acute paraspinal abnormality appreciated. Impression: No acute lumbar vertebral abnormality appreciated. Please note that all CT scans at this facility use dose modulation, iterative reconstruction, and/or weight-based dosing when appropriate to reduce radiation dose to as low as reasonably achievable. Dictated by Misael Kingston MD @ 05/15/2024 1:18:04 AM (Electronically Signed)
--- NOTE | 2024-05-15 00:07 | CRLHL7_ITS ---
For Patients: As a result of the Century Cures Act, medical imaging exams and procedure reports are released immediately into your electronic medical record. You may view this report before your referring provider. If you have questions, please contact your health care provider. Indication: Fall Technique: Noncontrast CT through the head with multiplanar reformats Comparison: None Findings: Brain: Small volume subarachnoid hemorrhage in the right convexity. 5 millimeter right subdural hematoma present. Mild chronic microvascular ischemic disease. Mild global parenchymal volume loss. No significant mass effect or midline shift. No acute transcortical infarct. Ventricles: No acute abnormality appreciated. Orbits, sinuses, mastoids: No acute abnormality appreciated. Calvarium and soft tissues: No acute abnormality appreciated. Impression: 1. There is a 5 millimeter right convexity subdural hematoma. No significant mass effect or midline shift. 2. Small volume subarachnoid hemorrhage, primarily noted in the right convexity. Findings were communicated by telephone to Dr. Kaye mijares at 0110 on 05/15/2024. Please note that all CT scans at this facility use dose modulation, iterative reconstruction, and/or weight-based dosing when appropriate to reduce radiation dose to as low as reasonably achievable. Dictated by Misael Kingston MD @ 05/15/2024 1:12:36 AM (Electronically Signed)
--- NOTE | 2024-05-15 00:07 | CRLHL7_ITS ---
For Patients: As a result of the Century Cures Act, medical imaging exams and procedure reports are released immediately into your electronic medical record. You may view this report before your referring provider. If you have questions, please contact your health care provider. Indication: Fall Technique: Noncontrast CT through the cervical spine with multiplanar reformats Comparison: None Findings: Alignment: No acute malalignment appreciated. Bones: No acute fracture. No lytic or blastic lesion. Cervical levels: No acute abnormality appreciated. Mild multilevel spondylosis. Soft tissues: No acute abnormality appreciated. Impression: No acute abnormality appreciated. Please note that all CT scans at this facility use dose modulation, iterative reconstruction, and/or weight-based dosing when appropriate to reduce radiation dose to as low as reasonably achievable. Dictated by Misael Kingston MD @ 05/15/2024 1:13:50 AM (Electronically Signed)
--- NOTE | 2024-05-15 00:07 | CRLHL7_ITS ---
For Patients: As a result of the Century Cures Act, medical imaging exams and procedure reports are released immediately into your electronic medical record. You may view this report before your referring provider. If you have questions, please contact your health care provider. Indication: Fall, trauma Technique: Noncontrast CT of the chest with multiplanar reformats. Comparison: CT chest abdomen pelvis performed 08/28/2021 Findings: Lungs: No consolidation. No effusion. No pneumothorax. Mild scarring and/or atelectasis. Mild apical emphysema. Mediastinum: No acute abnormality appreciated. Prior CABG. Lymph nodes: No gross lymphadenopathy. Upper abdomen: Cholecystectomy. Soft tissues: No acute abnormality appreciated. Bones: No acute abnormality appreciated. Degenerative changes of the spine and shoulders. Median sternotomy wires. Impression: No acute abnormality appreciated. Please note that all CT scans at this facility use dose modulation, iterative reconstruction, and/or weight-based dosing when appropriate to reduce radiation dose to as low as reasonably achievable. Dictated by Misael Kingston MD @ 05/15/2024 1:19:06 AM (Electronically Signed)
--- OUTSIDE RECORDS SUMMARY | 2024-05-15 00:18 | XMS_ITS | Continuity of Care Document ---
Author Name [facility] User [email or web address] Address Unknown Organization Unknown Address Unknown Procedures FILTER APPLIED:Only known Procedures with Onset Date within the last 5 years Procedure Date Procedure Provider Additiona l Information Status CBC AND DIFFERENTIAL (39630) Completed PERIPHERAL BLD MORPHOLOGY (60983) Completed VITAMIN B12 (28372) Comp leted RETICULOCYTES (65073) Co mpleted FERRITIN (32740) Complet ed Encounters FILTER APPLIED:Only known Encounters with Admission Date within the last 5 years Encounter Location Admission Discharge Billing Code Suspender Maker A ttender Unknown [id number]
--- OUTSIDE RECORDS SUMMARY | 2024-05-15 00:18 | XMS_ITS ---
Author Organization [facility] Address [address] [place] [address] Care Team Providers Care Tobacco Primer Machine Operator Name Role Phone Unavailable Unavailable Unavailable Surgery Details Not on file Complications Check Surgery Details section. Procedure Estimated Blood Loss Check Surgery Details section. Procedure Findings Check Surgery Details section. Procedure Specimens Taken Check Surgery Details section.
--- OUTSIDE RECORDS SUMMARY | 2024-05-15 00:18 | XMS_ITS | Clinical Summary ---
Author Organization [facility] Address [place], [place] [address] Care Team Providers Care Court Operations Clerk Name Role Phone Sravan Aparicio MD Primary Care Provider [phone] Uzma Aguirre Unavailable [phone] Florentin Walton MD Unavailable [phone] Eliot Lerma MD Unavailable Fernando Fields MD Unavailable [phone] Sim Wynne MD Unavailable [phone] Ruben Carpenter DPM Unavailable Allergies Active Allergy Reactions Criticality Noted Date Comments Chlorthalidone Hyperkalemia,Other - Describe In Comment Field 08/27/2021 interfered with other meds Lisinopril Hyperkalemia,Other - Describe In Comment Field Medium 09/07/2019 Kidney labs were affected interfered with other meds Medications ASPIRIN 325 MG TAB, DELAYED RELEASEIndications :Coronary atherosclerosis of unspecified type of vessel, atka or graft one daily 0 10/03/19 08 Active FISH OIL 1,200 MG-144 MG-216 MG CAPIndications:Cor onary atherosclerosis of unspecified type of vessel, atka or graft one daily 0 10/03/19 08 Active FLAXSEED OIL 1,000 MG CAPIndications:Cor onary atherosclerosis of unspecified type of vessel, atka or graft one daily 0 10/03/19 08 [...] tartrate (LOPRESSOR) 25 mg tabletIndications: 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 08/21/2016 Sleep disorder, [...] Department Care Team Description 05/12/2024 10:55 AM STAFF DEVELOPMENT MANAGER Office Visit [facility] [address] [place] [address] Sravan Aparicio MD Neurologic Problem (Concerns with neuropathy affecting balance) 05/12/2024 Travel 05/09/2024 Transcribe Orders [facility] [place] [phone] Junior Collins PA 04/12/2024 Orders Only [facility] [address] [place] [address] [address] Sim Wynne MD <No scans attached> 04/11/2024 1:20 PM STAFF DEVELOPMENT MANAGER Office Visit [facility] at [facility] [address] [place] [place] [address] Sim Wynne MD Procedure (Bilateral L3-4 TFESI) 04/10/2024 Travel 04/01/2024 Travel 03/24/2024 Orders Only [facility] Scanner 1 scan: (1-Ord) [facility]MA DERMATOLOGY, MOHS PROCEDURE, 03/24/2024 03/17/2024 Transcribe Orders [facility] [address] [place] [address] Sim Wynne MD 03/16/2024 11:45 AM STAFF DEVELOPMENT MANAGER Orders Only [facility] [address] [place] [address] Lab, [facility] 03/16/2024 Travel 03/08/2024 Orders Only [facility] Scanner 1 scan: (1-Ord) ALMA DERM, JANETHVE BX, 03/08/2024 02/21/2024 10:15 AM CDT Nurse/Clinic Staff Only [facility] [address] [place] [address] Immunization/Injecti on (PROLIA INJECTION PER DR. RENEE) 02/21/2024 Travel 2024 Travel from Last 3 Months Immunizations Name Administration Dates Next Due COVID-19 vaccine ([employer] 30mcg/0.3mL) PF, MDV 04/01/2021,08/27/2020,08/06/2020 HepA-HepB (Twinrix) [...] pur e alcohol) 1 scotch every night [facility] Utilities Answer Date Recorded Do you [...] AM CDT Legal Sex Male 5:24 AM STAFF DEVELOPMENT MANAGER Gender Identity Male 02/21/2020 10:06 AM CDT Sexual Orientation Straight 02/21/2020 10 :06 AM CDT Occupation Industry Job Start Date Job End Date Retired Not on file Not on file Not on file Obstetrics History Last Filed Vital Signs Vital Sign Reading Time Taken Comments Blood Pressure 119/65 05/12/2024 10:59 AM STAFF DEVELOPMENT MANAGER Pulse 74 05/12/2024 10:59 AM STAFF DEVELOPMENT MANAGER Temperature 36.3 C (97.3 F) 05/12/2024 10:59 AM STAFF DEVELOPMENT MANAGER Respiratory Rate 16 02/08/2024 9:59 AM CDT Oxygen Saturation 98% 05/12/2024 10:59 AM STAFF DEVELOPMENT MANAGER Inhaled Oxygen Concentration - - Weight 89.5 kg (197 lb 4.8 oz) 05/12/2024 10:59 AM STAFF DEVELOPMENT MANAGER Height 179.7 cm (5' 10.75) 02/07/2024 8:41 AM C DT Body Mass Index 27.71 02/07/2024 8:41 AM CDT Plan of Treatment Upcoming Encounters Date Type Department Care Team (Late st Contact Info) Description 05/18/2024 11:00 AM STAFF DEVELOPMENT MANAGER Ancillary Procedure [facility] [address] [place] [address] 05/23/2024 2:00 PM STAFF DEVELOPMENT MANAGER Patient Outreach [facility] [address] [facility] [place] [address] Audrey Prasad, RN [address] [place] [address] [id number] 06/15/2024 10:45 AM STAFF DEVELOPMENT MANAGER Orders Only [facility] [address] [place] [address] [facility] 06/20/2024 10:50 AM STAFF DEVELOPMENT MANAGER Office Visit [facility] [address] [facility] [address] Sravan Aparicio MD [address] [place] [address] 08/24/2024 1:00 PM CDT Office Visit [facility] [address] [place] [address] [phone] Felix Renee MD [address] [place] [address] [id number] 08/24/2024 1:30 PM CDT Nurse/Clinic Staff Only [facility] [address] [place] [address] [phone] Health Maintenance Due Date Last Done Comments [...] EPIDURAL STEROID INJECTION Routine 04/12/2024 2:32 PM STAFF DEVELOPMENT MANAGER Spinal stenosis of lumbar region with neurogenic claudication Bilateral hip pain AMB EPIDURAL STEROID INJECTION Routine 04/11/2024 12:00 AM STAFF DEVELOPMENT MANAGER Low back pain Bilateral leg pain SCAN-OPERATIVE/PROC EDURE REPORT 03/24/2024 12:00 AM STAFF DEVELOPMENT MANAGER SCAN-OPERATIVE/PROC EDURE REPORT 03/08/2024 12:00 AM STAFF DEVELOPMENT MANAGER from Last 3 Months Results * AMB EPIDURAL STEROID INJECTION (04/11/2024 12:00 AM STAFF DEVELOPMENT MANAGER) us Sim Wynne MD NEUROLOGY ORD Final Resu lt * SCAN-OPERATIVE/PROCEDURE REPORT (03/24/2024 12:00 AM STAFF DEVELOPMENT MANAGER) us Scanner OTHER Final Result * SCAN-OPERATIVE/PROCEDURE REPORT (03/08/2024 12:00 AM STAFF DEVELOPMENT MANAGER) us Scanner OTHER Final Result from Last 3 Months Insurance BLUE [employer]OSS [employer] MARTINEZ BLUE MR PB ONLY MEDICARE PART B HB ONLY BLUE [employer]ARTINEZ BLUE HB ONLY Advance Directives Documents on File Type Date Recorded Patient Sheep Clipper Expl anation Healthcare Directive 01/27/2012 3:[address] [facility] HEALTH CARE DIRECTIVE, [facility], 01/20/[address] Operations Clerk Relationship Specialty Start Date End Date Sravan Aparicio MD [address] [place] [address] PCP - General 11/12/05 Uzma Aguirre AuD [address] [place] [address] Mental Health Acrobatic Rigger- ED Audiology 01/21/12 Florentin Walton MD [address] [place] [address] [place] [address] Surgery - Urology 10/30/22 Eliot Lerma MD [address] [place] [address] Nephrology 10/30/22 Fernando Fields MD [address] [place] [address] Internal Medicine 10/30/22 Sim Wynne MD [address] [place] [address] Sports Medicine - Family Medicine 10/30/22 Ruben Carpenter DPM [address] [place] [address] Surgery - Podiatric 10/30/22
--- OUTSIDE RECORDS SUMMARY | 2024-05-15 00:18 | XMS_ITS | Referral Summary ---
Author Organization [facility] Address [address] [place] [address] Care Team Providers Care Bag Sewer Name Role Phone Unavailable Primary Care Provider Unavailabl e Source Comments Patient records contain information from all sites at [facility]. For routine questions regarding patient records, call [phone] during business hours, M-F 8:00 AM - 5:00 PM Central Time. Record requests for emergency care only can be directed to [phone] at any time.[facility] Encounters Date Type Department Care Team Description 03/16/2024 Clinical Communication Department of Radiation Oncology in [place], [place] [address] [place] [phone] Shelbie Castro APRN, C.N.P., D.N.P. from Last [...] THE EVENING WITH MEALS 2 Active omega 7-lfw-ztb-fish oil 1,200 (144-216) mg capsule Take by [...] on file Medical Devices Implanted Type Area Chocolatier Device Identifier Shelf Expiration Date Model / Serial / Lot Cardiac Other Cardiac Other Sternum Description:1960 sternum was wired Insurance MEDICARE [facility]
--- OUTSIDE RECORDS SUMMARY | 2024-05-15 00:18 | XMS_ITS | Clinical Summary ---
Author Organization [facility] Address [address] [place] [address] Care Team Providers Care Account Auditor Name Role Phone Unavailable Primary Care Provider Unavailabl e Source Comments Patient records contain information from all sites at [facility]. For routine questions regarding patient records, call [phone] during business hours, M-F 8:00 AM - 5:00 PM Central Time. Record requests for emergency care only can be directed to [phone] at any time.[facility] Allergies Active Allergy Reactions Criticality Noted Date [...] THE EVENING WITH MEALS 2 Active omega 5-cex-gtu-fish oil 1,200 (144-216) mg capsule Take by [...] Clinical Communication Department of Radiation Oncology in [place], [place] [address] [place] [address] Shelbie Castro APRN, C.N.P., D.N.P. [...] this topic Medical Devices Implanted Type Area Beet Flumer Device Identifier Shelf Expiration Date Model / Serial / Lot Cardiac Other Cardiac Other Sternum Description:1960 sternum was wired Insurance MEDICARE [facility]
--- OUTSIDE RECORDS SUMMARY | 2024-05-15 00:18 | XMS_ITS ---
Author Organization [facility] Address [address] [place] [address] Care Team Providers Care Radiator Tester Name Role Phone Unavailable Primary Care Provider [...] Treated Prescribed Fraction Dose Prescribed Total Dose [id number] 09/21/2022 27 20 of 20 300 cGy 6,000 cGy Reference Point Last Treated On Elapsed Days Session Dose Total Dose [id number] 09/21/2022 27 300 cGy 6,000 cGy
--- OUTSIDE RECORDS SUMMARY | 2024-05-15 00:18 | XMS_ITS | Encounter Summary ---
Author Organization [facility] Address [address] [place] [address] Care Team Providers Care Band Presser Name Role Phone Unavailable Primary Care Provider Unavailabl e Reason for Referral * Outpatient (Routine) - Authorized Specialty Diagnoses / Procedures Referred By Pan clark Referred To Contact Radiation Oncology Shelbie Castro APRN, C.N.P., D.N.P. [address] [place] [phone] Phone: tel: fax: Fernando Fields M.D. [address] [place] [phone] Phone: tel: fax: Referral ID Status Reason Start Date Expiration Date V isits Requested Visits Authorized [id number] Authorized 03/16/2024 09/15/2025 1 1 Scheduling Instructions A few days after PSA draw at [facility] OPENER AND FILLER Encounter Details Date Type Department Care Team (Late st Contact Info) Description 03/16/2024 Clinical Communication Department of Radiation Oncology in [place], [place] [address] [place] [phone] Shelbie Castro APRN, C.N.P., D.N.P. [address] [place] [phone] Social History Tobacco Use Types Packs/Day [...] LEFT, NEEDLE CORE BIOPSIES: 1. 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 Total surface area involved: 15% 3. Number of needle biopsy cores involved: 1 of 5 4. Perineural invasion: absent 07/09/2022 - 07/2023 Biological/Targeted/Hormone Therapy 07/09/2022: 45 mg (6 month) leuprolide injection at [facility]. 01/14/2023: 45 mg (6 month) leuprolide [...] a hard stool. He is currently using hovo-zzz-wvetlil stool softeners, but was unsure of the [...] a year and a half out from [facility]. He is experiencing scant rectal bleeding only when passing hard stools every 1-2 months. I discussed the importance of continued ccas-isl-wvltcrf stool softener use on a daily basis [...] continue monitoring his PSA at [facility] in [place] every 6 months. We will plan for [...] Castro APRN, Jose.N.PAshley, D.N.P. 03/16/2024 9:28 AM REJECT OPENER AND FILLER [facility] [address] [place] [address] CT [facility] documented in this encounter Plan of Treatment [...]
[2024-05-15 00:19] LABS: Basophils Absolute Auto 0.02 K/uL (0.00-0.30); Basophils Percent Auto 0.4 % (0.0-3.0); Hematocrit 33.5 % (37.0-53.0); Hemoglobin* 10.9 gm/dL (13.5-17.5); Immature Granulocytes Abs Auto 0.06 K/uL (0.00-0.30); Immature Granulocytes Pct Auto 1.2 %; Lymphocytes Percent Auto 17.9 % (20-44); Mean Corpuscular HGB Conc 33 gm/dL (32-36); Mean Corpuscular Hemoglobin 32 pg (26-34); Mean Corpuscular Volume 98 fL (80-100); Monocytes Percent Auto 11.9 % (0.0-11.0); Neutrophils Absolute Auto 3.36 K/uL (1.7-7.0); Neutrophils Percent Auto 66.6 % (42.0-72.0); Platelet Count* 179 K/uL (140-440); RDW Coefficient of Variation % 14.7 % (11.5-15.5); Red Blood Count 3.43 m/uL (4.30-5.90); White Blood Count* 5.04 K/uL (4.50-11.00)
[2024-05-15 00:20] LABS: Slide Review Reflex No
[2024-05-15] MEDS: 0.9 % SODIUM CHLORIDE 500 ML 500 ML IV (00:42)
[2024-05-15] MEDS: OXYCODONE 5 MG TABLET PO (00:43)
[2024-05-15 00:45] LABS: Chloride* 101 mmol/L (96-114); Potassium* 4.8 mmol/L (3.6-5.1)
--- NOTE | 2024-05-15 00:45 | ED_ITS ---
HPI - General Adult General Date Seen: 05/15/24 Chief complaint: Fall/Minor Trauma Stated complaint: fall, neck pain Time Seen by Provider: 05/14/24 23:57 History of Present Illness HPI narrative: Patient is an 84-year-old male here with family for evaluation after a fall. It sounds as if there was some confusion as to whether this was a syncopal event verses head injury with loss of consciousness, a TTE was not initially called but I called when after hearing about him. His was with him when he fell at around 10:30 p.m., presents the ER around an hour later via EMS. He was reported to note neck pain although to me it is really more upper thoracic. He says he has some pain in his chest since his fall as well, but says that he did not have pain prior to his fall. He did have brief loss of consciousness, which his believes happened after he fell and was not the cause of his fall. It sounds like he was walking with his walker and she feels that he lost his balance and fell backward. He does not complain of headache. Denies shortness of breath, abdominal pain, low back pain, weakness or numbness. He apparently had compression fractures in his thoracic spine last October which his says have healed. He denies recent illness, fever, cough, diarrhea black or bloody stools. Apparently he has occasional vomiting which is fairly chronic for him and a cause has not been found. He did vomit once a couple of days ago, but has not been vomiting today. Related Data Home Medications ?Medication ?Instructions ?Recorded ?Confirmed Lactobacillus acidophilus 10 100 mmu cells PO DAILY 10/07/23 10/28/23 billion cell capsule blood sugar diagnostic (Contour 10/07/23 10/07/23 Next Test Strips) ferrous sulfate 325 mg (65 mg 325 mg PO DAILY 10/07/23 10/27/23 iron) tablet furosemide 20 mg tablet 20 mg PO DAILY 10/07/23 10/27/23 glyburide 2.5 mg tablet 2.5 mg PO DAILY 10/07/23 10/27/23 niacin 500 mg tablet 500 mg PO DAILY 10/07/23 10/27/23 nitroglycerin 0.4 mg sublingual 0.4 mg sublingual Q5M PRN 06/06/24 06/26/24 tablet omega 9-ewt-dkj-fish oil 1,200 mg 1 cap PO DAILY 10/07/23 10/27/23 (144 mg-216 mg) capsule (Fish Oil) semaglutide 7 mg tablet (Rybelsus) 7 mg PO DAILY 10/07/23 10/27/23 sertraline 100 mg tablet 150 mg PO DAILY 10/07/23 10/27/23 simvastatin 80 mg tablet 80 mg PO DAILY 10/07/23 10/27/23 tamsulosin 0.4 mg capsule 0.8 mg PO QPM 10/07/23 10/27/23 Previous Rx's ?Medication ?Instructions ?Recorded acetaminophen 500 mg capsule 1,000 mg (2 x 500 mg) PO TID PRN 10/28/23 #100 caps calcitonin (salmon) 200 1 spray intranasal (ALT) DAILY 10/28/23 unit/actuation nasal spray #3.7 mL lidocaine 4 % topical patch 1 patch topical DAILY PRN pain #30 10/28/23 ea metoprolol tartrate 25 mg tablet 12.5 mg (1/2 x 25 mg) PO BID #30 10/28/23 tabs oxycodone 5 mg tablet 5 mg PO Q6H PRN pain #30 tabs 10/28/23 sennosides 8.6 mg capsule (senna) 8.6 mg PO BID constipation #30 caps 10/28/23 Allergies Allergy/AdvReac Type Severity Reaction Status Date / Time chlorthalidone AdvReac Unknown Verified 04/11/24 13:26 lisinopril AdvReac Verified 04/11/24 13:26 Review of Systems Status of ROS: Reports: 10 or more systems reviewed and unremarkable except as noted in History and below [facility] Medical History Cognitive impairment ?R41.89 - Other symptoms and signs involving cognitive functions and awareness (ICD-10) CKD (chronic kidney disease) stage 3, GFR 30-59 ml/min ?N18.30 - Chronic kidney disease, stage 3 unspecified (ICD-10) Pulmonary fibrosis ?J84.10 - Pulmonary fibrosis, unspecified (ICD-10) 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 - Radiation proctitis (ICD-10) Non-insulin dependent diabetes mellitus Hyperlipidemia ?E78.5 - Hyperlipidemia, unspecified (ICD-10) Essential (primary) hypertension ?I10 - Essential (primary) hypertension (ICD-10) IVORY (obstructive sleep apnea) ?G47.33 - Obstructive sleep apnea (adult) (pediatric) (ICD-10) Prostate cancer ?C61 - Malignant neoplasm of prostate (ICD-10) GERD (gastroesophageal reflux disease) ?K21.9 - Gastro-esophageal reflux disease without esophagitis (ICD-10) Atherosclerotic heart disease ?I25.10 - Atherosclerotic heart disease of [place] coronary artery without angina pectoris (ICD-10) Gout ?M10.9 - Gout, unspecified (ICD-10) Surgical History H/O hemorrhoidectomy ?Z98.890 - Other specified postprocedural states (ICD-10) H/O colonoscopy ?Z98.890 - Other specified postprocedural states (ICD-10) H/O arthroscopy of shoulder ?Z98.890 - Other specified postprocedural states (ICD-10) S/P cholecystectomy ?Z90.49 - Acquired absence of other specified parts of digestive tract (ICD- 10) Hx of CABG ?Z95.1 - Presence of aortocoronary bypass graft (ICD-10) Social History Narrative: Retired, [place]. Two adult children. Former smoker, typically has 1-2 drinks per night, has not been drinking much recently. No history of ETOH withdrawal. would be medical decision maker if needed, code status is full. What is your current living situation?: I presently have a place to live Problems where you live: no known problems Problems where you live details: NA In the past 12 months, utilities in danger of being shut off: no In past 12 months, lack of transportation kept you from medical appts, meetings, work, or getting things needed for daily living: no In the past 12 mos, have been you worried that your food would run out before you had money to buy more?: never true In the past 12 mos, the food you bought just didn't last and you didn't have money to buy more?: never true Highest level of school completed/degree received: GED or equivalent Smoking Status: Never smoker Second hand tobacco smoke exposure: No How often do you have a drink containing alcohol: 4 or more times a week Alcohol type details: 1-2 drinks nightly, states he hasn't had any for a few nights How many standard drinks containing alcohol do you have on a typical day: 1 or 2 How often do you have six or more drinks on one occasion: Never AUDIT-C Alcohol total score: 4 Non-prescribed substance use: denies use Caffeine: Yes How often does anyone, including family, friends and others, physically hurt you : never How often does anyone, including family, friends and others, insult or talk down to you: never How often does anyone, including family, friends and others, threaten you with harm: never How often does anyone, including family, friends and others, scream or curse at you: never service: No Exam Narrative: Exam Narrative: Primary survey: Airway: Patent. Breathing: Nonlabored. Lungs clear. Circulation: Pulses intact. No external bleeding. Disability: GCS 15. Secondary survey: Vital signs reviewed In general, an alert, nontoxic elderly male. Head: Normocephalic, atraumatic. Eyes: Pupils are equal reactive. Extraocular movements full. ENT: No facial trauma. Dentition intact. Neck: Cervical collar in place. No midline cervical tenderness. No anterior neck trauma. Chest: No visible signs of chest trauma. He does have some tenderness to palpation of his sternum. There is no visible trauma, no crepitus. Heart regular rate and rhythm. Lungs clear bilaterally. Abdomen: No visible signs of trauma. Soft, nondistended, nontender to palpation. Back: No visible signs of trauma. He has tenderness of his upper thoracic spine. Pelvis: Stable, nontender. Extremities: Atraumatic and nontender to palpation. Neurologic: Alert, conversant, moves all extremities to command. Strength is equal in upper and lower extremities. Skin: Warm and dry, no abrasions or lacerations. Const: Vital Signs, click to edit/add: Vital Signs - 24 hr 05/14/24 23:27 05/14/24 23:42 05/14/24 23:45 Temperature 96.0 F L Pulse Rate 71 71 Pulse Rate [Left P ulse Oximeter] 70 Respiratory Rate 16 Blood Pressure Blood Pressure [Ri ght Upper Arm] 114/69 Pulse Oximetry 95 98 95 Oxygen Delivery Me thod Room Air 05/15/24 00:00 05/15/24 00:02 05/15/24 00:02 Temperature Pulse Rate 75 73 73 Pulse Rate [Left P ulse Oximeter] Respiratory Rate Blood Pressure 118/72 118/72 Blood Pressure [Ri ght Upper Arm] Pulse Oximetry 95 91 91 Oxygen Delivery Me thod 05/15/24 00:02 05/15/24 00:07 05/15/24 00:12 Temperature Pulse Rate 73 72 74 Pulse Rate [Left P ulse Oximeter] Respiratory Rate Blood Pressure 118/72 98/61 109/65 Blood Pressure [Ri ght Upper Arm] Pulse Oximetry 91 89 91 Oxygen Delivery Me od 05/15/24 00:15 05/15/24 00:40 05/15/24 00:41 Temperature Pulse Rate 76 79 77 Pulse Rate [Left P ulse Oximeter] Respiratory Rate Blood Pressure 95/59 L Blood Pressure [Ri ght Upper Arm] Pulse Oximetry 91 92 93 Oxygen Delivery Me od 05/15/24 00:42 05/15/24 00:45 05/15/24 00:52 Temperature Pulse Rate 75 80 73 Pulse Rate [Left P ulse Oximeter] Respiratory Rate Blood Pressure 134/63 128/66 Blood Pressure [Ri ght Upper Arm] Pulse Oximetry 94 95 93 Oxygen Delivery Me od 05/15/24 01:02 05/15/24 01:09 05/15/24 01:09 Temperature Pulse Rate 81 79 Pulse Rate [Left P ulse Oximeter] Respiratory Rate 18 18 Blood Pressure 105/70 122/62 Blood Pressure [Ri ght Upper Arm] Pulse Oximetry 95 95 90 Oxygen Delivery Me od 05/15/24 01:10 05/15/24 01:15 05/15/24 01:21 Temperature Pulse Rate 80 79 81 Pulse Rate [Left P ulse Oximeter] Respiratory Rate Blood Pressure 120/62 Blood Pressure [Ri ght Upper Arm] Pulse Oximetry 92 91 95 Oxygen Delivery Me od 05/15/24 01:30 05/15/24 01:42 Temperature Pulse Rate 78 Pulse Rate [Left P ulse Oximeter] Respiratory Rate Blood Pressure 136/79 Blood Pressure [Ri ght Upper Arm] Pulse Oximetry 95 Oxygen Delivery Me thod Course Course ED Course: An IV was placed, EKG was done which showed a sinus rhythm, ventricular rate of 71. No acute ST segment changes. Unremarkable T-waves. I did draw labs for a CBC, metabolic panel, troponin. He has a history of chronic kidney disease and his creatinine was 2.7 so I elected to do CT scans without contrast of the head, cervical spine, thoracic spine, lumbar spine and chest. This was a fall from standing and he does not have any complaints of abdominal pain or tenderness I do not think he needs imaging of the abdomen or pelvis at this time. Initially declined anything for pain but then did changes mind and decided he wanted a pain pill. I gave him 5 mg of oxycodone which it looks like he was taking last year when he had his thoracic compression fractures. CT scan of the head by my review showed a small amount of what looks to be subarachnoid blood as well as a small subdural hemorrhage on the right. Final radiology review notes small volume subarachnoid hemorrhage and 5 mm subdural hemorrhage on the right. No significant midline shift or mass effect. Patient remains neurologically at baseline. He is conversant and does not have specific complaints. His CT scans of cervical lumbar and thoracic spines were negative per Radiology. He continues to deny neck pain and collar was removed. CT scan of the chest also reviewed by me without obvious fracture, no pneumothorax or pulmonary contusion. Final radiology read is negative, he has a median sternotomy, no sternal fracture or other acute bony abnormalities, report linked below. Case discussed with Dr. Dyer, [facility], accepts the patient in transfer for traumatic subdural and subarachnoid hemorrhage. Discussed with family. His and daughter feel strongly that if he were to deteriorate they would want intervention. He seems somewhat less certain of this, but after discussion they have elected to transfer. Vital Signs Vital signs: Initial Vital Signs Temperature 96.0 F L 05/14/24 23:27 Temperature Source Temporal Artery Scan 05/14/24 23:27 Pulse Rate 70 05/14/24 23:27 Pulse Rhythm Regular 05/14/24 23:27 Respiratory Rate 16 05/14/24 23:27 Blood Pressure 114/69 05/14/24 23:27 Blood Pressure Mean 84 05/14/24 23:27 Blood Pressure Position Supine 05/14/24 23:27 Pulse Oximetry 95 05/14/24 23:27 Oxygen Delivery Method Room Air 05/14/24 23:27 Vital Signs Temperature 96.0 F L 05/14/24 23:27 Pulse Rate 70 05/14/24 23:27 Respiratory Rate 16 05/14/24 23:27 Blood Pressure 114/69 05/14/24 23:27 Pulse Oximetry 95 05/14/24 23:27 Oxygen Delivery Method Room Air 05/14/24 23:27 Temperature 96.0 F L 05/14/24 23:27 Pulse Rate 78 05/15/24 01:30 Respiratory Rate 18 05/15/24 01:09 Blood Pressure 136/79 05/15/24 01:42 Pulse Oximetry 95 05/15/24 01:30 Oxygen Delivery Method Room Air 05/14/24 23:27 Medications Administered Medications: Generic Name Dose Route Start Last Admin Trade Name Freq PRN Reason Stop Dose Admin Sodium Chloride 500 mls @ 500 mls/hr 05/15/24 00:06 05/15/24 01:36 0.9 % Sodium Chloride 500 Ml IV 05/15/24 01:05 Infused .Q1H ONE Infusion Oxycodone HCl 5 mg 05/15/24 00:18 05/15/24 00:43 Oxycodone 5 Mg Tablet PO 05/15/24 00:19 5 mg ONCE ONE Administration Medical Decision Making Lab Data Labs: Lab Results 05/15/24 05/15/24 Range/Units 00:10 00:14 WBC 5.04 (4.50-11.00) K/uL RBC 3.43 L (4.30-5.90) m/uL Hgb 10.9 L (13.5-17.5) gm/dL Hct 33.5 L (37.0-53.0) % MCV 98 (80-100) fL MCH 32 (26-34) pg MCHC 33 (32-36) gm/dL RDW Coeff of Jcarlos 14.7 (11.5-15.5) % Plt Count 179 (140-440) K/uL Neut % (Auto) 66.6 (42.0-72.0) % Lymph % (Auto) 17.9 L (20-44) % [place] % (Auto) 11.9 H (0.0-11.0) % Eos % (Auto) 2.0 (0.0-7.0) % Baso % (Auto) 0.4 (0.0-3.0) % Neut # (Auto) 3.36 (1.7-7.0) K/uL Lymph # (Auto) 0.90 (0.90-2.90) K/uL [place] # (Auto) 0.60 (0.00-0.90) K/UL Eos # (Auto) 0.10 (0.00-0.50) K/uL Baso # (Auto) 0.02 (0.00-0.30) K/uL Abs Immat Gran (auto) 0.06 (0.00-0.30) K/uL Imm/Tot Granulo (auto) 1.2 % Sodium 139 (135-149) mmol/L Potassium 4.8 (3.6-5.1) mmol/L Chloride 101 (96-114) mmol/L Carbon Dioxide 29 (20-32) mmol/L Anion Gap 9 (7-15) mEq/L BUN 64 H (7-30) mg/dL Creatinine 2.8 H (0.5-1.5) mg/dL Estimated Creat Clear 21.94 Estimated GFR 22 ml/min Glucose 140 H (60-115) mg/dL Calcium 9.6 (8.4-10.6) mg/dL POC Creatinine 2.7 H (0.6-1.3) mg/dl POC Troponin I 0.01 (0.01-0.04) ng/ml Imaging Data CT scan - head: Attestation: I have reviewed the pertinent imaging results. Radiologist's impression: atient: Addi Oliveira MR#: [id number] : 1940 Acct:[id number] Loc: ED Service Date: 05/15/[address]: Ordering Physician: Kaye Mijares M.D. Date of Service: 05/15/24 Procedure(s): CT head/brain wo con Accession Number(s): [id number] cc: Kaye Mijares M.D.; Sravan Aparicio M.D.~ For Patients: As a result of the Cures Act, medical imaging exams and procedure reports are released immediately into your electronic medical record. You may view this report before your referring provider. If you have questions, please contact your health care provider. Indication: Fall Technique: Noncontrast CT through the head with multiplanar reformats Comparison: None Findings: Brain: Small volume subarachnoid hemorrhage in the right convexity. 5 millimeter right subdural hematoma present. Mild chronic microvascular ischemic disease. Mild global parenchymal volume loss. No significant mass effect or midline shift. No acute transcortical infarct. Ventricles: No acute abnormality appreciated. Orbits, sinuses, mastoids: No acute abnormality appreciated. Calvarium and soft tissues: No acute abnormality appreciated. Impression: 1. There is a 5 millimeter right convexity subdural hematoma. No significant mass effect or midline shift. 2. Small volume subarachnoid hemorrhage, primarily noted in the right convexity. Findings were communicated by telephone to Dr. Kaye mijares at 0110 on 05/15/2024. Please note that all CT scans at this facility use dose modulation, iterative reconstruction, and/or weight-based dosing when appropriate to reduce radiation dose to as low as reasonably achievable. Dictated by Misael Kingston MD @ 05/15/2024 1:12:[address]- Other: Attestation: I have reviewed the pertinent imaging results. Radiologist's impression: Ordering Physician: Kaye Mijares M.D. Date of Service: 05/15/24 Procedure(s): CT cervical spine wo con Accession Number(s): [id number] cc: Kaye Mijares M.D.; Sravan Aparicio M.D.~ For Patients: As a result of the Cures Act, medical imaging exams and procedure reports are released immediately into your electronic medical record. You may view this report before your referring provider. If you have questions, please contact your health care provider. Indication: Fall Technique: Noncontrast CT through the cervical spine with multiplanar reformats Comparison: None Findings: Alignment: No acute malalignment appreciated. Bones: No acute fracture. No lytic or blastic lesion. Cervical levels: No acute abnormality appreciated. Mild multilevel spondylosis. Soft tissues: No acute abnormality appreciated. Impression: No acute abnormality appreciated. Please note that all CT scans at this facility use dose modulation, iterative reconstruction, and/or weight-based dosing when appropriate to reduce radiation dose to as low as reasonably achievable. Dictated by Misael Kingston MD @ 05/15/2024 1:13:50 AM Patient: Addi Oliveira MR#: [id number] : 1940 Acct:[id number] Loc: ED Service Date: 05/15/[address]: Ordering Physician: Kaye Mijares M.D. Date of Service: 05/15/24 Procedure(s): CT thoracic spine wo con Accession Number(s): [id number] cc: Kaye Mijares M.D.; Sravan Aparicio M.D.~ For Patients: As a result of the Cures Act, medical imaging exams and procedure reports are released immediately into your electronic medical record. You may view this report before your referring provider. If you have questions, please contact your health care provider. Indication: Fall Technique: Noncontrast CT through the thoracic spine with multiplanar reformats Comparison: None Findings: Alignment: No acute malalignment. Bones: Rigid spine. No acute thoracic vertebral fracture. Thoracic levels: No acute abnormality appreciated. No high-grade central or foraminal stenosis appreciated. Soft tissues: No acute paraspinal abnormality appreciated. Impression: No acute thoracic vertebral abnormality appreciated. Please note that all CT scans at this facility use dose modulation, iterative reconstruction, and/or weight-based dosing when appropriate to reduce radiation dose to as low as reasonably achievable. Patient: Addi Oliveira MR#: [id number] : 1940 Acct:[id number] Loc: ED Service Date: 05/15/[address]: Ordering Physician: Kaye Mijares M.D. Date of Service: 05/15/24 Procedure(s): CT lumbar spine wo con Accession Number(s): [id number] cc: Kaye Mijares M.D.; Sravan Aparicio M.D.~ For Patients: As a result of the Cures Act, medical imaging exams and procedure reports are released immediately into your electronic medical record. You may view this report before your referring provider. If you have questions, please contact your health care provider. Indication: Fall Technique: Noncontrast CT through the lumbar spine with multiplanar reformats Comparison: Lumbar spine CT performed 10/27/2023 Findings: Alignment: No acute malalignment appreciated. Bones: Chronic L1 and L4 Schmorl`s nodes with associated height loss. No acute fracture of the lumbar spine is appreciated. Subacute to chronic transverse process fractures of L1 and L2 on the left. Lumbar levels: No acute abnormality appreciated. Moderate spondylosis. Soft tissues: No acute paraspinal abnormality appreciated. Impression: No acute lumbar vertebral abnormality appreciated. Please note that all CT scans at this facility use dose modulation, iterative reconstruction, and/or weight-based dosing when appropriate to reduce radiation dose to as low as reasonably achievable. Dictated by Misael Kingston MD @ 05/15/2024 1:18:[address] scan - chest: Attestation: I have reviewed the pertinent imaging results. Radiologist's impression: Patient: Addi Oliveira MR#: [id number] : 1940 Acct:[id number] Loc: ED Service Date: 05/15/[address]: Ordering Physician: Kaye Mijares M.D. Date of Service: 05/15/24 Procedure(s): CT lumbar spine wo con Accession Number(s): [id number] cc: Kaye Mijares M.D.; Sravan Aparicio M.D.~ For Patients: As a result of the Cures Act, medical imaging exams and procedure reports are released immediately into your electronic medical record. You may view this report before your referring provider. If you have questions, please contact your health care provider. Indication: Fall Technique: Noncontrast CT through the lumbar spine with multiplanar reformats Comparison: Lumbar spine CT performed 10/27/2023 Findings: Alignment: No acute malalignment appreciated. Bones: Chronic L1 and L4 Schmorl`s nodes with associated height loss. No acute fracture of the lumbar spine is appreciated. Subacute to chronic transverse process fractures of L1 and L2 on the left. Lumbar levels: No acute abnormality appreciated. Moderate spondylosis. Soft tissues: No acute paraspinal abnormality appreciated. Impression: No acute lumbar vertebral abnormality appreciated. Please note that all CT scans at this facility use dose modulation, iterative reconstruction, and/or weight-based dosing when appropriate to reduce radiation dose to as low as reasonably achievable. Dictated by Misael Kingston MD @ 05/15/2024 1:18:04 AM Discharge Plan Discharge Clinical Impression: Traumatic subdural hemorrhage with loss of consciousness Patient Disposition: Xfer Other Prescriptions: No Action (DME) Contour Next Test Strips Strip MISCELLANEOUS DAILY glyburide 2.5 mg tablet 2.5 mg PO DAILY furosemide 20 mg tablet 20 mg PO DAILY nitroglycerin 0.4 mg tablet, sublingual 0.4 mg sublingual Q5M PRN sertraline 100 mg tablet 150 mg PO DAILY simvastatin 80 mg tablet 80 mg PO DAILY tamsulosin 0.4 mg capsule 0.8 mg PO QPM Rybelsus 7 mg tablet 7 mg PO DAILY niacin 500 mg tablet 500 mg PO DAILY Lactobacillus acidophilus 10 billion cell capsule 100 mmu cells PO DAILY ferrous sulfate 325 mg (65 mg iron) tablet 325 mg PO DAILY omega 0-tvc-nbr-fish oil [Fish Oil] 1,200 (144-216) mg capsule 1 cap PO DAILY senna 8.6 mg capsule 8.6 mg PO BID Qty: 30 0RF oxycodone 5 mg tablet 5 mg PO Q6H PRN (Reason: pain) Qty: 30 0RF lidocaine 4 % adhesive patch,medicated 1 patch topical DAILY PRN (Reason: pain) Qty: 30 0RF calcitonin (salmon) 200 unit/actuation spray,non-aerosol 1 spray intranasal (ALT) DAILY Qty: 3.7 0RF acetaminophen 500 mg capsule 1,000 mg PO TID PRNQty: 100 0RF metoprolol tartrate 25 mg tablet 12.5 mg PO BID Qty: 30 0RF Rx Instructions: 1 tab every morning, 2 tabs every evening Stand Alone Forms: [facility] Info Instructions
[2024-05-15 00:47] LABS: Sodium* 139 mmol/L (135-149)
[2024-05-15 00:48] LABS: Anion Gap 9 mEq/L (7-15); Blood Urea Nitrogen* 64 mg/dL (7-30); Carbon Dioxide* 29 mmol/L (20-32); Creatinine* 2.8 mg/dL (0.5-1.5); Est. Creatinine Clearance* 21.94; Estimated Glomerular Filt Rate 22 ml/min; Glucose* 140 mg/dL (60-115)
[2024-05-15 00:49] LABS: Calcium* 9.6 mg/dL (8.4-10.6)
--- NOTE | 2024-05-15 00:53 | ED.NURSE ---
pt back from RAD
[2024-05-15 01:23] LABS: Creatinine, Point-of-Care* 2.7 mg/dl (0.6-1.3)
[2024-05-15 01:24] LABS: Troponin, Point-of-Care* 0.01 ng/ml (0.01-0.04)
--- NOTE | 2024-05-15 01:50 | ED.NURSE ---
Report given to Ashley DENNIS at [facility] [place]
--- NOTE | 2024-05-15 02:13 | ED.NURSE ---
Pt pulled out IV by accident, 20 gauge in left AC. New IV established to RAC, 18 gauge.
--- NOTE | 2024-05-15 02:14 | ED.NURSE ---
EMS arrived, report given.
== END 2024-05-15 02:18 | disposition other institution (70) ==
PROVIDERS: Emergency Provider Emergency Medicine; PCP Family Medicine
DX: S06.5X0A Traumatic subdural hemorrhage without loss of consciousness, initial encounter (principal); W19.XXXA Unspecified fall, initial encounter
CPT/HCPCS: 36415; 70450; 71250; 72125; 72128; 72131; 80048; 82565; 84484; 85025; 93005; 94761; 99284; 99285; 99291; A9270; G0390; J7030

== ENCOUNTER 2024-05-15 02:11 | Outpatient (CLI) | payer MEDICARE, BC, SELFPAY | END 2024-05-15 02:12 | disposition home or self-care (01) | LOC: AMB 06-12 16:27 | PROVIDERS: PCP Family Medicine; Visit Provider Emergency Medicine | DX: S06.5X9A Traumatic subdural hemorrhage with loss of consciousness of unspecified duration, initial encounter (principal) | CPT/HCPCS: A0425; A0429 ==

== ENCOUNTER 2024-07-25 09:30 | Outpatient (RCR) | payer MEDICARE, BC, SELFPAY | END 2024-11-22 23:59 | disposition home or self-care (01) | PROVIDERS: PCP Family Medicine; Visit Provider Family Medicine | DX: S06.9X1A Unspecified intracranial injury with loss of consciousness of 30 minutes or less, initial encounter (principal); Z51.89 Encounter for other specified aftercare | CPT/HCPCS: 97110; 97166; 97530; 97535; X5282 ==

== ENCOUNTER 2024-07-31 08:30 | Outpatient (RCR) | payer MEDICARE, BC, SELFPAY | END 2024-11-28 23:59 | disposition home or self-care (01) | PROVIDERS: PCP Family Medicine; Visit Provider Physician Assistant | DX: M54.50 Low back pain, unspecified (principal); R26.81 Unsteadiness on feet; M48.062 Spinal stenosis, lumbar region with neurogenic claudication; Z51.89 Encounter for other specified aftercare | CPT/HCPCS: 97012; 97110; 97112; 97116; 97162; 97164; 97166; 97530; 97535; X5282 ==

== ENCOUNTER 2024-09-12 10:51 | Outpatient (CLI) | payer MEDICARE, BC, SELFPAY | END 2024-09-12 10:52 | disposition home or self-care (01) | LOC: INJ CL 10:52 | PROVIDERS: PCP Family Medicine; Visit Provider Family Medicine | DX: M54.16 Radiculopathy, lumbar region (principal); M51.369 Other intervertebral disc degeneration, lumbar region without mention of lumbar back pain or lower extremity pain; M48.062 Spinal stenosis, lumbar region with neurogenic claudication | CPT/HCPCS: 64483; J1100; Q9966 ==

== ENCOUNTER 2024-10-03 15:27 | Outpatient (CLI) | payer MEDICARE, BC, SELFPAY ==
[2024-10-03 17:18] LABS: PSA Diagnostic* < 0.06 ng/mL (0.10-4.00)
== END 2024-10-03 15:28 | disposition home or self-care (01) ==
LOC: LAB 15:32
PROVIDERS: PCP Family Medicine; Visit Provider Family Medicine
DX: C61 Malignant neoplasm of prostate (principal)
CPT/HCPCS: 36415; 84153

== ENCOUNTER 2024-11-10 18:21 | Emergency (ER) | payer MEDICARE, BC, SELFPAY ==
--- OUTSIDE RECORDS SUMMARY | 2023-10-07 04:44 | XMS_ITS | Continuity of Care Document ---
Author Organization [facility] Address [address] [address] [place] [address] Phone Care Team Providers Care Glaze Supervisor Name Role Phone Bill Cazares MD Unavailable Unavailabl e Advance Directives Directive Yes / No Effective Date File Name No Information Encounters Encounter Description Practice Location Reason(s) For Visit Diagnoses Date Provider Providers Copied on Encounter [facility], [address] [address], [place], [place], [id number], tel:[phone] [facility] No Information Bj Khan. [address] [place] [address], [id number], [place]. tel:[phone] [facility], [address] [address], [place], [place], [id number], tel:[phone] [facility] No Information Bj Khan. [address] [place] [address], [id number], [place]. tel:[phone] Family History Family Member Type Diagnosis Age At Onset No Information Immunizations Vaccine Date Status Comments Respiratory syncytial virus (RSV), vaccine, recombinant, protein subunit RSV prefusion F, adjuvant reconstituted, 0.5 mL, preservative free administered Note: [facility] bi-direct ional interface ; Source: Other Registry influenza, high-dose seasona l, quadrivalent, 0.7mL dose, preservative free administered Note: [facility] bi-direct ional interface ; Source: Other Registry SARS-COV-2 (COVID-19) vaccin e, mRNA, spike protein, LNP, preservative free, marlo-sucrose, 30 mcg/0.3 mL dose administered Note: [facility] bi-direct ional interface ; Source: Other Registry zoster vaccine recombinant administered N ote: [facility] bi-directional interface ; Source: Other Registry Pneumococcal conjugate vacci ne 20-valent (PCV20), polysaccharide [id number] conjugate, adjuvant, preservative free administered Note: [facility] bi-direct ional interface ; Source: Other Registry zoster vaccine recombinant administered N ote: [facility] bi-directional interface ; Source: Other Registry Twinrix administered Note: [facility] bi-d irectional interface ; Source: Other Registry influenza, high-dose seasona l, quadrivalent, 0.7mL dose, preservative free administered Note: [facility] bi-direct ional interface ; Source: Other Registry SARS-COV-2 (COVID-19) vaccin e, mRNA, spike protein, LNP, bivalent, preservative free, 50 mcg/0.5 mL or 25 mcg/0.25 mL dose administered Note: [facility] bi- directional interface ; Source: Other Registry tetanus toxoid, reduced diphtheria toxoid, and acellular pertussis vaccine, adsorbed administered Note: [facility] b i-directional interface ; Source: Other Registry influenza, high-dose seasona l, quadrivalent, 0.7mL dose, preservative free administered Note: [facility] bi-direct ional interface ; Source: Other Registry SARS-COV-2 (COVID-19) vaccin e, mRNA, spike protein, LNP, preservative free, 100 mcg/0.5mL dose or 50 mcg/0.25mL dose administered Note: [facility] bi -directional interface ; Source: Other Registry SARS-COV-2 (COVID-19) vaccin e, mRNA, spike protein, LNP, preservative free, 30 mcg/0.3mL dose administered Note: [facility] bi-direct ional interface ; Source: Other Registry SARS-COV-2 (COVID-19) vaccin e, mRNA, spike protein, LNP, preservative free, 30 mcg/0.3mL dose administered Note: [facility] bi-direct ional interface ; Source: Other Registry influenza, high-dose seasona l, quadrivalent, 0.7mL dose, preservative free administered Note: [facility] bi-direct ional interface ; Source: Other Registry influenza, high dose seasona l, preservative-free administered Note: [facility] bi-direct ional interface ; Source: Other Registry influenza, high dose seasona l, preservative-free administered Note: [facility] bi-direct ional interface ; Source: Other Registry Influenza, injectable, Madin [place] Canine Kidney, preservative free, quadrivalent administered Note: [facility] bi-direct ional interface ; Source: Other Registry influenza, high dose seasona l, preservative-free administered Note: [facility] bi-direct ional interface ; Source: Other Registry Prevnar 13 administered Note: [facility] bi-d irectional interface ; Source: Other Registry influenza, high dose seasona l, preservative-free administered Note: [facility] bi-direct ional interface ; Source: Other Registry influenza, high dose seasona l, preservative-free administered Note: [facility] bi-direct ional interface ; Source: Other Registry tetanus toxoid, reduced diphtheria toxoid, and acellular pertussis vaccine, adsorbed administered Note: [facility] b i-directional interface ; Source: Other Registry Influenza, seasonal, injectable administe red Note: [facility] bi- directional interface ; Source: Other Registry Influenza, seasonal, injecta ble, preservative free administered Note: [facility] bi-direct ional interface ; Source: Other Registry Influenza, seasonal, injecta ble, preservative free administered Note: [facility] bi-direct ional interface ; Source: Other Registry Afluria Qd administered Note: M [facility] bi-directional interface ; Source: Other Registry Novel [id number], injectable administered Note: [facility] bi-direct ional interface ; Source: Other Registry Influenza, seasonal, injecta ble, preservative free administered Note: [facility] bi-direct ional interface ; Source: Other Registry Influenza, seasonal, injectable administe red Note: [facility] bi- directional interface ; Source: Other Registry zoster vaccine, live administered Note: M [facility] bi-directional interface ; Source: Other Registry Influenza, seasonal, injectable administe red Note: [facility] bi- directional interface ; Source: Other Registry Influenza, seasonal, injectable administe red Note: [facility] bi- directional interface ; Source: Other Registry Twinrix administered Note: [facility] bi-d irectional interface ; Source: Other Registry Twinrix administered Note: [facility] bi-d irectional interface ; Source: Other Registry Pneumovax 23 administered Note: [facility] bi-d irectional interface ; Source: Other Registry Influenza, seasonal, injectable administe red Note: [facility] bi- directional interface ; Source: Other Registry Payers Payer name Insurance type Covered green party ID Authoriza tion(s) [employer] CI [id number] Social History Type Description Quantity Date Captured Comments Sex Male Smoking Status No Information Chief Complaint And Reason For Visit No Information Reason For Referral Reason For Referral No Information History Of Present Illness Encounter Date Complaint History Of Prese nt Illness No Information Functional Status Date Functional Assessmen t No Information Instructions Date Instruction Additional Infor mation No Information Assessments Type Assessment Date No Information Patient Care Teams Name Effective Dates (start - stop) Status Members No Information
--- OUTSIDE RECORDS SUMMARY | 2023-10-07 04:44 | XMS_ITS | Continuity of Care Document ---
Author Organization [facility] Address [address] [address] [place] [address] Phone Care Team Providers Care Railroad Cook Name Role Phone Bill Cazares MD Unavailable Unavailabl e Advance Directives Directive Yes / No Effective Date File Name No Information Encounters Encounter Description Practice Location Reason(s) For Visit Diagnoses Date Provider Providers Copied on Encounter [facility], [address] [address], [place], [place], [id number], tel:[phone] [facility] No Information Bj Khan. [address] [place] [address], [id number], [place]. tel:[phone] [facility], [address] [address], [place], [place], [id number], tel:[phone] [facility] No Information Bj Khan. [address] [place] [address], [id number], [place]. tel:[phone] Family History Family Member Type Diagnosis Age [...] Pneumococcal conjugate vacci ne 20-valent (PCV20), polysaccharide [id number] conjugate, adjuvant, preservative free administered Note: [facility] [...] ; Source: Other Registry Influenza, injectable, Madin [place] Canine Kidney, preservative free, quadrivalent administered Note: [...] bi-directional interface ; Source: Other Registry Novel [id number], injectable administered Note: [facility] bi-direct ional interface [...] Registry Payers Payer name Insurance type Covered alliance party ID Authoriza tion(s) [employer] CI [id number] Social History Type Description Quantity Date Captured [...]
--- OUTSIDE RECORDS SUMMARY | 2024-11-01 10:40 | XMS_ITS ---
Author Organization [facility] Address [address] [place] [address] , [address] [place] [address] Phone Care Team Providers Care Shovel Engineer Name Role Phone Gissel STOKES, Marisela Morfin Unavailable Conditions or Problems No information available. Medications No information available. Medications Administered No information available. Allergies, Adverse Reactions, Alerts No information available. Results No information available. Plan of Care Type Date Detail Appointment 12:20 PM Lei Carrizales MD , [address] [facility], [address], [place], [address], Pending order Follow up Pending order Follow up Pending order Patient Instruct ions Pending order Patient Instruct ions Procedures Code Procedure Name Date Entry Date ORDERS Patient Instructions ORDERS Patient Instructions Vital Signs No information available. Immunizations No information available. Advance Directives No information available.
--- OUTSIDE RECORDS SUMMARY | 2024-11-10 18:23 | XMS_ITS | Patient Health Record ---
Author Organization [facility] Address [address] [place] [address] Care Team Providers Care Caseworker Protective Services Name Role Phone EMILE BENOIT Unavailable [phone] Reason For Referral No Information Medications Medication SIG (Take, Route, Fr equency, Duration) Notes Start Date End Date Status predniSONE 20 MG 2 tablet Orally once a day; Duration: 3 days 04/27/2018 Active metFORMIN HCl 1000 MG 1 tablet with a me al Orally Twice a day Active Colchicine 0.6 MG 2 tab now, repeat wi th 1 tab 1 hour after first dose then daily until 2 days after symptom relief Orally Once a day; Duration: 7 days 04/27/2018 Active glyBURIDE 2.5 MG 1 tablet with breakf ast or the first main meal of the day Orally Once a day Active Simvastatin 80 MG 1 tablet in the even ing Orally Once a day Active Lisinopril 5 MG 1 tablet Orally Once a day Active Sertraline HCl 100 MG 1.5 tablet Orally Once a day Active Indomethacin 50 MG 1 capsule with food or milk Orally Twice a day; Duration: 30 day(s) Active Social History Tobacco Use: Social History Observation Description Date Details (start date - stop date) Never Smoker NA - NA Tobacco Use/Smoking Question Answer Notes Are you a nonsmoker Alcohol Screen (Audit-C) Question Answer Notes Did you have a drink contain ing alcohol in the past year? Yes How often did you have a dri nk containing alcohol in the past year? 2 to 4 times a month (2 points) Points 2 Interpretation Negative Problems Problem Type SNOMED Code ICD Code Onset Dates Problem Status W/U Status Risk Notes Problem Type 2 diabetes mellitus without complications (E11.9) Active confirmed Problem Hyperlipidemia (85254970) Hyperlipidemia, unspecified (E78.5) Active confirmed Problem Essential hypertension (27514742) Essential (primary) hypertension (I10) Active confirmed Problem Gout (65984970) Gout, unspecified (M10.9) Active confirmed Plan Of Treatment No Information Insurance Providers Payer Name Payer Address Payer Phone Subscriber Number Group Number Insured Name Patient Relationship to Insured Coverage Start Date Coverage End Date [employer] [place] [address] [place] [address] [phone] [id number] ELINA CAMACHO Self - patient is the insured [facility] [address] [place] [address] [id number] ELINA CAMACHO Self - patient is the insured Medical (General) History Medical History History ICD Code Diabetes Hypertension Hyperlipidemia GOUT Anxiety Surgical History Surgery Date(Month/Year) CABG Right Shoulder Cholecystectomy Tonsillectomy
--- OUTSIDE RECORDS SUMMARY | 2024-11-10 18:23 | XMS_ITS | Clinical Summary ---
Author Organization [facility] Address [address] [place] [address] Care Team Providers Care Crank Hand Name Role Phone Unavailable Primary Care Provider Unavailabl e Source Comments Patient records contain information from all sites at [facility]. For routine questions regarding patient records, call [phone] during business hours, M-F 8:00 AM - 5:00 PM Central Time. Record requests for emergency care only can be directed to [phone] at any time.[facility] Allergies Active Allergy Reactions Criticality Noted Date [...] THE EVENING WITH MEALS 2 Active omega 5-pmh-hga-fish oil 1,200 (144-216) mg capsule Take by [...] Encounters Date Type Department Care Team Description 09/20/2024 Clinical Communication Department of Radiation Oncology in [place], [place] [address] [place] [address] Fernando Fields M.D. from Last 3 Months Family History Medical [...] pu re alcohol) 1-2 scotch every night Sex and Gender Information Value Date Recorded [...] PHQ-2) 05/03/2024 Fall Risk Screen (Annual) 05/03/2024 Influenza Vaccine (#1) 2025 , 02/05/2023, 01/23/2022, Additional history exists DTaP,Tdap,and Td Vaccines (3 - Td or Tdap) 10/04/2031 10/03/2021, 11/04/2012, 02/19/2004, Additional history exists Pneumococcal vaccine (50+ years) Completed 03/18/2022, 02/26/2016, 03/15/2003 Zoster Vaccines Completed 06/08/2022, 02/02, 04/30/2006 RSV vaccine - (32-36 weeks) or 60+ years Completed 03/05/2023 HPV Vaccines Aged Out No longer eligi ble based on patient's age to complete this topic IPV Vaccines Aged Out No longer eligi ble based on patient's age to complete this topic Medical Devices Implanted Type Area Assembly Manager Device Identifier Shelf Expiration Date Model / Serial / Lot Cardiac Other Cardiac Other Sternum Description:1961 sternum was wired Insurance MEDICARE [facility]
--- OUTSIDE RECORDS SUMMARY | 2024-11-10 18:23 | XMS_ITS ---
Author Organization [facility] Address [address] [place] [address] Care Team Providers Care Varitypist Name Role Phone Unavailable Primary Care Provider Unavailabl e Active Problems * This document contains information received from the source organization and may not represent a complete record from that organization. Problem Noted Date Diagnosed Date Hematochezia 09/25/2023 Primary Malignant Neoplasm Of Prostate Cancer Staging:Clinical stage from 06/11/2022:Stage IIB(cT1c, cN0, cM0, PSA: 16.2, Grade Group: 2) - Unsigned Current Treatment and Therapy Plans No current plan information found. Past Treatment and Therapy Plans No past plan information found. Past Radiation Episodes * IMRT: ProstateOverview* First Treatment Date Last Treatment Date Treatment Site Technique Goal Episode Provider 08/25/2022 09/21/2022 Prostate IMRT Curative * Linked Problems Primary Malignant Neoplasm O f Prostate Treatment Courses* Course 1xProstate 08/25/2022 - 09/21/2022 Treatment Period Fraction Dose Fractions Total Dose Plans Planned [id number] 08/25/2022 - 09/21/2022 300 cGy 6 ,000 cGy Reference Points Delivered [id number] 08/25/2022 - 09/21/2022 6,000 cGy
--- OUTSIDE RECORDS SUMMARY | 2024-11-10 18:23 | XMS_ITS | Encounter Summary ---
Author Organization [facility] Address [address] [place] [address] Care Team Providers Care Jewelry Sales Representative Name Role Phone Unavailable Primary Care Provider Unavailmanuel e Encounter Details Date Type Department Care Team (Late st Contact Info) Description 09/20/2024 Clinical Communication Department of Radiation Oncology in [place], [place] [address] [place] [id number] Fernando Fields M.D. [address] [place] [address] Social History Tobacco Use Types Packs/Day Years [...] - Shelbie Castro APRN, C.N.P., D.N.P. - 10/05/2024 8:42 AM CDT I contacted Alexandre and Lacy to review Alexandre's latest PSA results of <0.06 ng/mL. I discussed what this means in relation to his prostate cancer. He had contacted us a couple of weeks ago regarding newer pain throughout his body. Today he reports pain has improved. I discussed it be likely arthritic in nature and less likely to be related to prostate cancer, especially with having an undetectable PSA. We will check his PSA again in 6 months at [facility] and contact them with the results.They were encouraged to contact us with questions, concerns, or new symptoms. * Telephone Encounter - Yessy Ewing - 09/20/2024 10:51 AM CDT I called patient to remind him of his PSA lab draw that JLL had ordered for around this time. Patient then stated that he was told if he ever experienced bone pain to contact the clinic. Patient reports pain in his back, knees, hips and hands. The left side more than the right. Patient states he can not tell if it is bone or muscle pain. He reports he previously had compression fractures in his back but those have since healed so he does not think that is the cause. Patient would like a call back to discuss. documented in this encounter Plan of Treatment Not on file documented as of this encounter Visit Diagnoses Not on filedocumented in this encounter
--- OUTSIDE RECORDS SUMMARY | 2024-11-10 18:24 | XMS_ITS | Clinical Summary ---
Author Organization [employer] [facility] Address [facility] [place] [address] Care Team Providers Care Community Service Coordinator Name Role Phone Sravan Aparicio MD Primary Care Provider [phone] Uzma Aguirre Unavailable [phone] Florentin Walton MD Unavailable [phone] Eliot Lerma MD Unavailable Fernando Fields MD Unavailable Sim Wynne MD Unavailable Ruben CarpenterM Unavailable Audrey Prasad RN Unavailable [phone] SchempFelix caicedo MD Unavailable [phone] Allergies Active Allergy Reactions Criticality Noted Date Comments Chlorthalidone Hyperkalemia,Other - Describe In Comment Field 08/27/2021 interfered with other meds Lisinopril Hyperkalemia,Other - Describe In Comment Field Medium 09/07/2019 Kidney labs were affected interfered with other meds Medications FLAXSEED OIL 1,000 MG CAPIndications:Moises nary atherosclerosis of unspecified type of vessel, ak chin or graft one daily 0 10/03/19 08 Active niacin 500 mg Sustained-Release capsuleIndications: Other and unspecified hyperlipidemia Take 1 capsule by mouth once daily. DO NOT CRUSH OR CHEW. 90 capsule 4 09/15/19 13 Active Diabetic ShoeIndications:Ewa betes mellitus without complication (HC) As directed. Diabetic foot exam shows calloses over both first metatarsal heads and heels. 1 Each 03/11/20 22 Active CPAPIndications:Obs tructive sleep apnea CPAP machine for home use at pressure 9 cmw, full face mask x1/3month with a full face cushion x1/mo 1 Each 03/29/20 23 Active sennosides (SENNA) 8.6 mg tablet Take 8.6 mg by mouth once daily. Active ferrous sulfate 325 mg delayed release tabletIndications:O ther iron deficiency anemia Take 1 Tablet (325 mg) by mouth once every other day. 45 Tablet 3 06/19/19 25 Active famotidine (PEPCID) 20 mg tabletIndications:G astroesophageal reflux disease, unspecified whether esophagitis present Take 1 Tablet (20 mg) by mouth two times daily. Take the Famotidine 30 minutes before a meal. 180 Tablet 3 06/28/19 25 Active semaglutide 7 mg tabletIndications:D iabetes mellitus without complication (HC) Take 1 Tablet (7 mg) by mouth once daily before a meal. 90 Tablet 3 08/02/19 25 Active colchicine 0.6 mg tabletIndications:A cute idiopathic gout of ankle, unspecified laterality 2 tabs now. Repeat with 1 tab after an hour. Then 1 tab daily until 2 days after symptom relief for 1week. Use as needed for gout flare 20 Tablet 3 08/17/19 25 Active tamsulosin 0.4 mg capsuleIndications: BPH without urinary obstruction Take 2 Capsules (0.8 mg) by mouth once daily after a meal. 180 Capsule 3 09/27/19 25 Active simvastatin 80 mg tabletIndications:O ther hyperlipidemia Take 1 Tablet (80 mg) by mouth at bedtime. 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 25 Tablet 5 09/27/19 25 Active FreeStyle Marina 3 Plus Sensor for continuous blood glucose monitor (CGM)Indications:Di abetes mellitus without complication (HC) To be used to read blood sugars, follow senior technical project manager directions. 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 90 Tablet 3 09/27/19 25 Active buPROPion 300 mg Extended-Release tabletIndications:D ysthymic disorder,Depression , recurrent Take 1 Tablet (300 mg) by mouth once daily. 90 Tablet 09/27/19 25 Active sertraline 100 mg tabletIndications:A nxiety TAKE 1 AND 1/2 TABLETS BY MOUTH EVERY DAY 135 Tablet 3 09/27/19 Active Hospital, Clinic, or Other Facility Administered Medication [...] = 7/10, ISUP Grade group 2, with Marshall pattern 4 adenocarcinoma representing approximately 40% of tumor 2. Total surface area involved: 30% 3. Number of needle biopsy cores involved: 4 of 9 4. Perineural invasion: absent D) PROSTATE, LEFT, NEEDLE CORE BIOPSIES: 1. 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 08/21/2016 Sleep disorder, [...] Encounters Date Type Department Care Team Description 11/10/2024 Travel 11/08/2024 11:00 AM CDT Ancillary Procedure [facility] [address] [facility] [id number] Arrived 11/08/2024 Travel 10/16/2024 11:00 AM CDT Ancillary Procedure [facility] [address] [place] [address] 10/16/2024 Travel 10/03/2024 Orders Only [facility] Scanner 1 scan: (1-Ord) [facility], PSA DIAGNOSTIC, 10/03/2024 09/26/2024 10:00 AM CDT Office Visit [facility] [address] [place] [address] Sravan Aparicio MD Diabetes (Routine follow up - uses freestyle marina for checking blood sugars); Immunization/Inject ion 09/26/2024 Orders Only [facility] [address] [facility] [address] [place] [address] Montrell Rodriguez MD <No scans attached> 09/26/2024 Travel 09/19/2024 10:00 AM CDT Orders Only [facility] [address] [facility] [place] [address] [place], [place] Lab 09/19/2024 Orders Only [facility] [address] [place] [address] [address] [place] [address] Marvin Cade MD <No scans attached> 09/19/2024 Travel 09/14/2024 Travel 09/14/2024 Refill [facility] [address] [facility] [place] [address] Sravan Aparicio MD Refill Request ( buPROPion (WELLBUTRIN XL) 300 mg Extended-Release tablet//) 09/12/2024 11:20 AM CDT Office Visit [facility] [address] [place] [address] Sim Wynne MD Procedure (Bilateral L3-4 TFESI) 09/12/2024 Refill [facility] [address] [place] [address] Sravan Aparicio MD Refill Request (Bupropion HCL ER (XL) Oral Tablet Extended Release 24HR 300mg ) 09/12/2024 Travel 09/11/2024 7:44 AM CDT - 09/11/2024 11:59 PM CDT Hospital Encounter [address] [address] Juan Antonio Laughlin MD Subdural hematoma (HC) 09/11/2024 Transcribe Orders [facility] [address] [place] [address] Sim Wynne MD 09/11/2024 Refill [facility] [address] [place] [address] Sravan Aparicio MD Refill Request (Jardiance Oral Tablet 10mg ) 09/11/2024 Travel 09/08/2024 Telephone [facility] [address] [place] [address] Sravan Aparicio MD outside orders 08/31/2024 2:55 PM CDT - 08/31/2024 11:59 PM CDT Hospital Encounter [address] [address] Junior Collins PA Imbalance 08/31/2024 Travel 08/24/2024 1:30 PM CDT Nurse/Clinic Staff Only [facility] [address] [place] [address] Immunization/Inject ion (Prolia) 08/24/2024 1:00 PM CDT Office Visit [facility] [address] [place] [address] Felix Payan MD Follow Up (Osteoporosis, Vertebral compression fractures/); Immunization/Inject ion (Last Prolia - 02/21/24 Due - 08/21/24/); Diabetes ( Cared for by PCP) 08/23/2024 Travel 08/19/2024 Travel 08/18/2024 10:30 AM CDT Ancillary Procedure [facility] [address] [facility] [address] 08/18/2024 Travel 08/17/2024 Orders Only [facility] Scanner 1 scan: (1-Ord) [facility] 08/17/2024 Travel 08/16/2024 11:45 AM CDT Office Visit [facility] [address] [facility] [address] Sravan Aparicio MD Staple Removal (27 sandy - left side of head) 08/16/2024 Telephone [facility] [address] [facility] [address] Sravan Aparicio MD Questions (provider questions ) 08/16/2024 Travel 08/15/2024 8:15 AM CDT Orders Only [facility] [address] [facility] [address] [place] 08/14/2024 Travel from Last 3 Months Immunizations Immunization Administration Dates Next Due COVID-19 vaccine (LivBlends-Bio NTWorldWinger 30mcg/0.3mL) PF, MDV 04/01/2021,08/27/2020,08/06/2020 HepA-HepB (Twinrix) 03/01/2022,05/22/2003,2002 [...] pur e alcohol) 1 scotch every night PHQ-2 Answer Date Recorded PHQ-2 TOTAL SCORE 3 09/26/2024 Social Connections Answer Date Recorded Do you [...] is your housing situation today? 1 05/12/2024 Utilities Answer Date Recorded Do you have trouble paying f or utilities (for example, heat, electricity, water, phone)? 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 Gender Identity Male 02/21/2020 10:06 AM CDT Sexual Orientation Straight 02/21/2020 10 :06 AM CDT Occupation Industry Job Start Date Job End Date Retired Not on file Not on file Not on file Obstetrics History Last Filed Vital Signs Vital Sign Reading Time Taken Comments Blood Pressure 126/70 09/26/2024 10:05 AM CDT Pulse 72 09/26/2024 10:05 AM CDT Temperature 36.1 C (97 F) 09/26/2024 10:05 AM CDT Respiratory Rate 16 02/08/2024 9:59 AM CDT Oxygen Saturation 99% 09/26/2024 10:05 AM CDT Inhaled Oxygen Concentration - - Weight 89.9 kg (198 lb 3.2 oz) 09/26/2024 10:05 AM CDT Height 178.4 cm (5' 10.25) 08/24/2024 1:10 PM C DT Body Mass Index 28.24 08/24/2024 1:10 PM CDT Plan of Treatment Upcoming Encounters Date Type Department Care Team (Late st Contact Info) Description 11/15/2024 11:20 AM CDT Office Visit [facility] [address] [place] [address] Sravan Aparicio MD [address] [place] [address] 11/15/2024 1:00 PM CDT Office Visit [facility] [place] [address] [facility] [address] [place] [address] Montrell Rodriguez MD [address] [facility] [address] [place] [address] 11/28/2024 10:15 AM CDT Orders Only [facility] [address] [facility] [address] [place] 01/16/2025 9:30 AM CDT Orders Only [facility] [address] [place] [address] [place] 02/13/2025 9:30 AM CDT Telemedicine [facility] [address] [place] [id number] Schemsascha, Felix Sarmiento MD [address] [place] [place] [address] 03/26/2025 10:15 AM BUCK PRESSER Orders Only [facility] [address] [facility] [address] Lab, [facility] 03/30/2025 10:05 AM BUCK PRESSER Office Visit [facility] [address] [facility] [address] Sravan Aparicio MD [address] [facility] [address] Health Maintenance Due Date Last Done Comments COVID-19 vaccine series ( season) 2024 02/01/2024, 02/05/2023, 01/23/2022, Additional history exists Influenza Vaccine (#1) 2025 , 04/01/2021, 02/02/2019, Additional history exists Medicare Wellness for age 65+ 01/14/2025, 08/12/2020, 09/14/2012, Additional history exists BMI (ht and wt on same day) for age 18+ 08/24/2025 08/24/2024, 02/07/2024, 01/14/2023, Additional history exists Depression screening for age 12+ 09/26/2025 09/26/2024, 01/17/2024, 01/14/2024, Additional history exists Tetanus booster 10/04/2031 10/03/2021, 07/0 08/2012, 02/19/2004, Additional history exists Hepatitis B series for 19+ Completed 03/01, 05/22/2003, 04/17/2003 Pneumococcal series for age 50+ Completed 03/18/2022, 02/26/2016, 03/15/2003 Zoster (shingles) series for age 50+ Completed 06/08/2022, 03/01/2022, 04/30/2006 RSV vaccine for adults or Completed 03/05/2023 Procedures Procedure Name Priority Date/Time Associated Diagnosis Comments ECHO TTE COMPLETE W CONTRAST Routine 11/08/2024 11:35 AM CDT 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 Essential hypertension Other hyperlipidemia CT HEAD BRAIN WO Routine 10/16/2024 11:0 5 AM CDT Subdural hematoma (HC) SCAN-LABORATORY REPORT 10/03/2024 12:00 AM CDT BASIC METABOLIC PANEL Routine 09/19/2024 9:59 AM CDT Type II or unspecified type diabetes mellitus without mention of complication, not stated as uncontrolled HEMOGLOBIN A1C Routine 09/19/2024 9:59 AM CDT Type II or unspecified type diabetes mellitus without mention of complication, not stated as uncontrolled LIPID PANEL W REFLEX MEASURED LDL Routine 09/19/2024 9:59 AM CDT Type II or unspecified type diabetes mellitus without mention of complication, not stated as uncontrolled AMB EPIDURAL STEROID INJECTION Routine 09/12/2024 12:00 AM CDT Spinal stenosis, lumbar region, with neurogenic claudication CT HEAD BRAIN WO STAT 09/11/2024 7:57 AM CDT Subdural hematoma (HC) MR SPINE CERVICAL WO Routine 08/31/2024 3:[address] HEAD BRAIN WO Routine 08/18/2024 10:4 3 AM CDT Subdural hematoma (HC) SCAN-ELECTROMYOGRAM EMG 08/17/2024 12:00 AM CDT from Last 3 Months Results * ECHO TTE COMPLETE W CONTRAST (11/08/2024 11:35 AM CDT) AORTIC VALVE MEAN PG 4 mmHg EJECTION FRACTION 60 % LVEDD 4.5 cm EJECTION FRACTION 60 - 65% Anatomical Region Laterality Modality Ultrasound 11/08/2024 11:1 0 AM CDT Narrative 11/08/2024 11:52 AM CDT ECHOCARDIOGRAM ELINA OLIVEIRA : 1940 84 years Study Date: 11/08/2024 11:10:07 AM Gender: M BP: 146/75 mmHg Height: 178.00 cm BSA: 2.08 m Weight: 90.00 kg Tech: [facility] Referring MD: MONTRELL RODRIGUEZ Site: [facility] Reading Location: Mobile-OP Patient Location: Outpatient. Procedure: Color Doppler, Spectral Doppler and 2D w/ Contrast. 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 Final Impressions: 1. Normal left ventricular size, normal wall thickness, normal global systolic function, calculated EF of 60 %. 2. Echo contrast was administered to enhance visualization of all left ventricular segments. 3. Right ventricular cavity size is normal, global systolic RV function is mildly reduced. 4. Normal left atrium size. 5. The aortic valve is normal and trileaflet, no stenosis and no regurgitation. 6. The mitral valve is normal, no mitral regurgitation. 7. Tricuspid valve is normal, regurgitation is not evident tricuspid regurgitation. 8. No pericardial effusion. Chamber Sizes and Function Normal left ventricular size, normal wall thickness, normal global systolic function, calculated EF of 60 %. No resting regional wall motion abnormality visualized. Left atrial size is normal. Left atrial pressure is normal. Right ventricular cavity size is normal, global systolic RV function is mildly reduced. The right atrium is normal. Right atrial volume index is 10 ml/m . Right atrial area is 10 cm . The pulmonary artery is of normal size and origin. The sinus of Valsalva is normal sized. The ascending aorta is normal sized. Valves, RV Pressures and Diastolic Function The aortic valve is normal in structure and trileaflet, no stenosis and no regurgitation. The mitral valve is normal in structure, no mitral regurgitation. Normal diastolic function. The tricuspid valve is normal in structure, regurgitation is not evident tricuspid regurgitation. The pulmonic valve is normal. No pulmonary regurgitation. Masses, Effusion, Shunts There is no pericardial effusion. The inferior vena cava is normal sized, respiratory size variation greater than 50%. No left to right shunting was detected by limited color flow Doppler interrogation of the interatrial septum. MEASUREMENTS AND CALCULATIONS 2-D Measurements and LV Function: LVID (d) 4.5 cm Planimetered EF 60 % LVID (s) 2.5 cm LV FS% (2D) 44 % IVS (d) 1.0 cm LVOT diameter 2.3 cm LVPW (d) 1.0 cm HR 83 bpm Ao Sinus 3.5 cm LA Vol index 17 ml/m2 Ao Sinus ULN 4.2 cm * RA Vol index 10 ml/m2 Asc Ao 3.2 cm RA area 10 cm Asc Ao ULN 4.4 cm * RV Basal Diam 3.2 cm * Input age outside of range, reported values correspond to Age = 81 Diastology: Mitral Tissue Doppler Pulmonary veins E Peak 0.8 m/s e', Septum 0.08 m/s Pulm s 60.4 cm/s A Peak 1.0 m/s e', Lateral 0.10 m/s Pulm d 47.7 cm/s E/A 0.7 E/e' Average 8.68 Pulm s/d ratio 1.27 DT 213 msec Aortic Valve: Vmax 1.1 m/s ROME (V) 3.54 cm VTI 0.24 m ROME (I) 3.02 cm LVOT V max 0.9 m/s Max PG 5 mmHg LVOT VTI 0.17 m Mean PG 4 mmHg SV 72 ml Dim Index 0.70 SV index 35 ml/m CO 6.0 l/min CI 2.9 l/min/m Mitral Valve: MVA 3.6 cm MV P 1/2 62 msec MV Mean G 2 mmHg MV VTI 0.25 m Tricuspid Valve and estimated PA pressures: TAPSE 1.2 cm Pulmonic Valve: PV AT 108 msec Contrast documentation: 3 ml diluted Definity, lot #[id number], [facility]# [id number] was administered peripherally to enhance visualization of all left ventricular segments. . This study was interpreted by an [facility] accredited facility. Final Procedure Note Jacqueline Juares, [facility] - 11/08/2024 ECHOCARDIOGRAM ELINA OLIVEIRA : 1940 84 years Study Date: 11/08/2024 11:10:07 AM Gender: M BP: 146/75 mmHg Height: 178.00 cm BSA: 2.08 m Weight: 90.00 kg Tech: [facility] Referring MD: MONTRELL RODRIGUEZ Site: [facility] Reading Location: Mobile-OP Patient Location: Outpatient. Procedure: Color Doppler, Spectral Doppler and 2D w/ Contrast. Indication for study: Atherosclerosis of coronary artery bypass graft ofnative heart without angina pectoris; Essential hypertension; Otherhyperlipidemia Cardiac Rhythm: Regular.Study quality: Good. Final Impressions: 1. Normal left ventricular size, normal wall thickness, normal globalsystolic function, calculated EF of 60 %. 2. Echo contrast was administered to enhance visualization of all leftventricular segments. 3. Right ventricular cavity size is normal, global systolic RV functionis mildly reduced. 4. Normal left atrium size. 5. The aortic valve is normal and trileaflet, no stenosis and noregurgitation. 6. The mitral valve is normal, no mitral regurgitation. 7. Tricuspid valve is normal, regurgitation is not evident tricuspidregurgitation. 8. No pericardial effusion. Chamber Sizes and Function Normal left ventricular size, normal wall thickness, normal globalsystolic function, calculated EF of 60 %. No resting regional wall motionabnormality visualized. Left atrial size is normal. Left atrial pressureis normal. Right ventricular cavity size is normal, global systolic RVfunction is mildly reduced. The right atrium is normal. Right atrialvolume index is 10 ml/m . Right atrial area is 10 cm . The pulmonaryartery is of normal size and origin. The sinus of Valsalva is normalsized. The ascending aorta is normal sized. Valves, RV Pressures and Diastolic Function The aortic valve is normal in structure and trileaflet, no stenosis and noregurgitation. The mitral valve is normal in structure, no mitralregurgitation. Normal diastolic function. The tricuspid valve is normal instructure, regurgitation is not evident tricuspid regurgitation. Thepulmonic valve is normal. No pulmonary regurgitation. Masses, Effusion, Shunts There is no pericardial effusion. The inferior vena cava is normal sized,respiratory size variation greater than 50%. No left to right shunting wasdetected by limited color flow Doppler interrogation of the interatrialseptum. MEASUREMENTS AND CALCULATIONS 2-D Measurements and LV Function: LVID (d) 4.5 cm Planimetered EF 60% LVID (s) 2.5 cm LV FS% (2D) 44% IVS (d) 1.0 cm LVOT diameter2.3 cm LVPW (d) 1.0 cm HR 83bpm Ao Sinus 3.5 cm LA Vol index 17ml/m2 Ao Sinus ULN 4.2 cm * RA Vol index 10ml/m2 Asc Ao 3.2 cm RA area 10cm Asc Ao ULN 4.4 cm * RV Basal Diam3.2 cm * Input age outside of range, reported values correspond to Age = 81 Diastology: Mitral Tissue Doppler Pulmonary veins E Peak 0.8 m/s e', Septum 0.08 m/s Pulm s 60.4 cm/s A Peak 1.0 m/s e', Lateral 0.10 m/s Pulm d 47.7 cm/s E/A 0.7 E/e' Average 8.68 Pulm s/d ratio 1.27 DT 213 msec Aortic Valve: Vmax 1.1 m/s ROME (V) 3.54 cm VTI 0.24 m ROME (I) 3.02 cm LVOT V max 0.9 m/s Max PG 5 mmHg LVOT VTI 0.17 m Mean PG 4 mmHg SV 72 ml Dim Index 0.70 SV index 35 ml/m CO 6.0 l/min CI 2.9 l/min/m Mitral Valve: MVA 3.6 cm MV P 1/2 62 msec MV Mean G 2 mmHg MV VTI 0.25 m Tricuspid Valve and estimated PA pressures: TAPSE 1.2 cm Pulmonic Valve: PV AT 108 msec Contrast documentation: 3 ml diluted Definity, lot #[id number], [facility]#[id number] was administered peripherally to enhance visualization of allleft ventricular segments. . This study was interpreted by an [facility] accredited facility. Final us Montrell Rodriguez MD ECHO ORD Final Res ult * CT HEAD BRAIN WO (10/16/2024 11:05 AM CDT) Only the most recent of3 resultswithin the time period is included. Anatomical Region Laterality Modality HEAD, BRAIN Computed Tomogra phy 10/16/2024 11:2 9 AM CDT Impressions 10/16/2024 11:29 AM CDT 1. Interval decreased size and conspicuity of subdural hematoma adjacent to the right cerebral hemisphere. Residual mildly hyperdense subdural fluid collection measures 3 millimeters in maximal thickness 2. No new hemorrhage elsewhere. No acute infarct. 3. Stable postop changes of right parietal craniotomy Please note that all CT scans at this facility use dose modulation, iterative reconstruction, and/or weight-based dosing when appropriate to reduce radiation dose to as low as reasonably achievable. Dictated by Efren Tuttle MD @ 10/16/2024 11:29:44 AM (Electronically Signed) Narrative 10/16/2024 11:29 AM CDT For Patients: As a result of the Century Cures Act, medical imaging exams and procedure reports are released immediately into your electronic medical record. You may view this report before your referring provider. If you have questions, please contact your health care provider. INDICATION: Subdural hematoma. COMPARISON: 09/11/2024. TECHNIQUE: Noncontrast CT head. FINDINGS: Compared to the previous exam, interval decreased size and conspicuity of subdural hematoma adjacent the right cerebral hemisphere. There is a thin hyperdense subdural fluid collection adjacent to the right frontal lobe measuring approximately 3 mm in maximal thickness. No new intracranial hemorrhage elsewhere. No acute infarct. No midline shift. No abnormal ventricular dilatation. Stable postoperative changes right parietal craniotomy. Normal skull base. Visualized paranasal sinuses and mastoid air cells are clear. Normal orbits bilaterally. Procedure Note Efren Tuttle MD, PhD - 10/16/2024 For Patients: As a result of the Century Cures Act, medical imagingexams and procedure reports are released immediately into your electronicmedical record. You may view this report before your referring provider.If you have questions, please contact your health care provider. INDICATION: Subdural hematoma. COMPARISON: 09/11/2024. TECHNIQUE: Noncontrast CT head. FINDINGS: Compared to the previous exam, interval decreased size and conspicuity ofsubdural hematoma adjacent the right cerebral hemisphere. There is a thinhyperdense subdural fluid collection adjacent to the right frontal lobemeasuring approximately 3 mm in maximal thickness. No new intracranial hemorrhage elsewhere. No acute infarct. No midlineshift. No abnormal ventricular dilatation. Stable postoperative changes right parietal craniotomy. Normal skull base. Visualized paranasal sinuses and mastoid air cells areclear. Normal orbits bilaterally. IMPRESSION: 1. Interval decreased size and conspicuity of subdural hematoma adjacentto the right cerebral hemisphere. Residual mildly hyperdense subduralfluid collection measures 3 millimeters in maximal thickness 2. No new hemorrhage elsewhere. No acute infarct. 3. Stable postop changes of right parietal craniotomy Please note that all CT scans at this facility use dose modulation,iterative reconstruction, and/or weight-based dosing when appropriate toreduce radiation dose to as low as reasonably achievable. Dictated by Efren Tuttle MD @ 10/16/2024 11:29:44 AM (Electronically Signed) us Juan Antonio Laughlin MD CT Final R esult * SCAN-LABORATORY REPORT (10/03/2024 12:00 AM CDT) us Scanner OTHER Final Result * (ABNORMAL) HEMOGLOBIN A1C (09/19/2024 9:59 AM CDT) HEMOGLOBIN A1C 6.8(H) <5.7 % [facility] Comment: For someone without known diabetes, a hemoglobin A1c value of 6.5% or greater indicates that they may have diabetes and this should be confirmed with a follow-up test. For someone with known diabetes, a value <7% indicates that their diabetes is well controlled and a value greater than or equal to 7% indicates suboptimal control. A1c targets should be individualized based on duration of diabetes, age, comorbid conditions, and other considerations. Currently, no consensus exists regarding use of hemoglobin A1c for diagnosis of diabetes for children. Blood BLOOD SPECIMEN / Unknown 09/19/2024 9:59 AM CDT 09/19/2024 10:01 AM CDT Narrative [facility] - 09/20/2024 3:34 AM CDT FASTING:NO FASTING: NO us Sravan Aparicio MD CHEMISTRY Final Resu lt [facility] [address] [place] [address], [employer] [employer] [address] [place] [address] * (ABNORMAL) LIPID PANEL W REFLEX MEASURED LDL (09/19/2024 9:59 AM CDT) [facility] CHOLESTEROL, TOTAL 185 <200 mg/dL [facility] HDL CHOLESTEROL 51 > OR = 40 mg/dL [facility] TRIGLYCERIDES 181(H) <150 mg/dL [facility] LDL-CHOLESTEROL 104(H) mg/dL (calc) [facility] Comment: Reference range: <100 Desirable range <100 mg/dL for primary prevention; <70 mg/dL for patients with CHD or diabetic patients with > or = 2 CHD risk factors. LDL-C is now calculated using the Tru calculation, which is a validated novel method providing better accuracy than the Friedewald equation in the estimation of LDL-C. Doe RIVAS et al. SATURNINO. 2013;310(19): 0814-6024 (http://education.[employer]/faq/ANL947) CHOL/HDLC RATIO 3.6 <5.0 (calc) [facility] NON HDL CHOLESTEROL 134(H) <130 mg/dL (calc) [email or web address] Comment: For patients with diabetes plus 1 major ASCVD risk factor, treating to a non-HDL-C goal of <100 mg/dL (LDL-C of <70 mg/dL) is considered a therapeutic option. Blood BLOOD SPECIMEN / Unknown 09/19/2024 9:59 AM CDT 09/19/2024 10:01 AM CDT Narrative [facility] - 09/20/2024 4:11 AM CDT FASTING:NO FASTING: NO us Sravan Aparicio MD CHEMISTRY Final Resu lt [facility] [address] [place] [address], [facility] [address] * (ABNORMAL) BASIC METABOLIC PANEL (09/19/2024 9:59 AM CDT) [facility] GLUCOSE 131 65 - 139 mg/dL [email or web address] Comment: Non-fasting reference interval UREA NITROGEN (BUN) 63(H) 7 - 25 mg/dL [email or web address] CREATININE 2.38(H) 0.70 - 1.22 mg/dL [facility] EGFR 26(L) > OR = 60 mL/min/1.7 3m2 [facility] BUN/CREATININE RATIO 26(H) 6 - 22 (calc) [facility] SODIUM 139 135 - 146 mmol/L [facility] POTASSIUM 5.3 3.5 - 5.3 mmol/L [facility] CHLORIDE 103 98 - 110 mmol/L [facility] CARBON DIOXIDE 27 20 - 32 mmol/L [facility] ELECTROLYTE BALANCE 9 7 - 17 mmol/L (calc) [facility] CALCIUM 9.6 8.6 - 10.3 mg/dL [email or web address] Blood BLOOD SPECIMEN / Unknown 09/19/2024 9:59 AM CDT 09/19/2024 10:01 AM CDT Narrative [facility] - 09/20/2024 4:11 AM CDT FASTING:NO FASTING: NO Sravan Aparicio MD CHEMISTRY Final Resu lt [facility] [address] [place] [address], [facility] [address] [place] [address] * AMB EPIDURAL STEROID INJECTION (09/12/2024 12:00 AM CDT) Sim Wynne MD NEUROLOGY ORD Final Resu lt * MR SPINE CERVICAL WO (08/31/2024 3:39 PM CDT) Anatomical Region Laterality Modality Spine, CERVICAL SPINE Magnetic R esonance 09/01/2024 9:21 AM CDT Narrative 09/01/2024 9:21 AM CDT For Patients: As a result of the Cures Act, medical imaging exams and procedure reports are released immediately into your electronic medical record. You may view this report before your referring provider. If you have questions, please contact your health care provider. Indication: Imbalance. Technique: Multiplanar multisequence noncontrast MR images of the cervical spine. Comparison: None. Findings: The cervical lordosis is maintained. Mild rightward cervical curvature. Vertebral body heights are preserved. No acute fracture. No T1 hypointense lesions. The cervical cord is normal in signal intensity. C2-3: Posterior disc bulge. Jcix-ns-pwvcizfp facet arthropathy. Mild spinal canal narrowing. No neural foraminal narrowing. C3-4: Posterior disc bulge. Thickening ligamentum flavum. Mild to moderate left facet arthropathy. Mild spinal canal narrowing. No neural foraminal narrowing. C4-5: Trace retrolisthesis. Posterior disc bulge in conjunction with ligamentum flavum thickening results in moderately severe spinal canal stenosis. Mild facet arthropathy. Uncinate spurring. Mild right without left neural foraminal narrowing. C5-6: Moderately advanced disc height loss. Posterior disc osteophyte complex. Ligamentum flavum thickening. Uncinate spurring. Mild to moderate spinal canal narrowing. Moderately severe bilateral neural foraminal stenosis. C6-7: Shallow disc bulge. No spinal canal or neural foraminal narrowing. C7-T1: Mild facet arthropathy. No spinal canal or neural foraminal narrowing. Impression: 1. At C4-5, moderately severe spinal canal stenosis without cord signal abnormality. 2. At C5-6, moderately severe bilateral neural foraminal stenosis. Wsqt-mn-hvzetvnp spinal canal narrowing. Dictated by Joshua Prado MD @ 09/01/2024 9:21:17 AM (Electronically Signed) Procedure Note Joshua Prado MD - 09/01/2024 For Patients: As a result of the Cures Act, medical imagingexams and procedure reports are released immediately into your electronicmedical record. You may view this report before your referring provider.If you have questions, please contact your health care provider. Indication: Imbalance. Technique: Multiplanar multisequence noncontrast MR images of the cervical spine. Comparison: None. Findings: The cervical lordosis is maintained. Mild rightward cervical curvature.Vertebral body heights are preserved. No acute fracture. No T1 hypointenselesions. The cervical cord is normal in signal intensity. C2-3: Posterior disc bulge. Uyzo-lu-kdetgnse facet arthropathy. Mildspinal canal narrowing. No neural foraminal narrowing. C3-4: Posterior disc bulge. Thickening ligamentum flavum. Mild to moderateleft facet arthropathy. Mild spinal canal narrowing. No neural foraminalnarrowing. C4-5: Trace retrolisthesis. Posterior disc bulge in conjunction withligamentum flavum thickening results in moderately severe spinal canalstenosis. Mild facet arthropathy. Uncinate spurring. Mild right withoutleft neural foraminal narrowing. C5-6: Moderately advanced disc height loss. Posterior disc osteophytecomplex. Ligamentum flavum thickening. Uncinate spurring. Mild to moderatespinal canal narrowing. Moderately severe bilateral neural foraminalstenosis. C6-7: Shallow disc bulge. No spinal canal or neural foraminal narrowing. C7-T1: Mild facet arthropathy. No spinal canal or neural foraminalnarrowing. Impression: 1. At C4-5, moderately severe spinal canal stenosis without cord signalabnormality. 2. At C5-6, moderately severe bilateral neural foraminal stenosis.Cnil-jf-bjrgmvzp spinal canal narrowing. Dictated by Joshua Prado MD @ 09/01/2024 9:21:17 AM (Electronically Signed) us Junior Collins PA MR Final Re sult * SCAN-ELECTROMYOGRAM EMG (08/17/2024 12:00 AM CDT) us Scanner OTHER Final Result from Last 3 Months Insurance BL[place] BLUE MR PB ONLY MEDICARE PART B HB ONLY [place] BLUE HB ONLY Advance Directives Documents on File Type Date Recorded Patient Family Physician Expl anation Healthcare Directive 01/27/2012 3:08 PM [facility], [facility], 01/20/2012 Care Teams Community Service Coordinator Relationship Specialty Start Date End Date Sravan Aparicio MD [address] [place] [address] PCP - General 11/12/05 Uzma Aguirre AuD [address] [place] [address] Mental Health Tobacco Conditioner- ED Audiology 01/21/12 Florentin Walton MD [address] [place] [address] Surgery - Urology 10/30/22 Eliot Lerma MD [address] [place] [address] Nephrology 10/30/22 [place] [address] [place] [address] Internal Medicine 10/30/22 Sim Wynne MD [address] [place] [address] Sports Medicine - Family Medicine 10/30/22 Ruben Carpenter DPM [address] [place] [address] Surgery - Podiatric 10/30/22 Audrey Prasad, RN [address] [place] [address] Clean Up Person 06/06/24 Felix Payan MD [address] [place] [place] [address] Endocrinology 08/28/24
[2024-11-10 18:36] VITALS: BP 160/92; PULSE 80; RESP 16; TEMP 36.4; O2SAT 95; BMI 27.1
--- NOTE | 2024-11-10 18:53 | ED.GENADULT ---
HPI - General Adult General Chief complaint: Nausea/Vomiting Stated complaint: weakness/vomiting Time Seen by Provider: 11/10/24 18:42 History of Present Illness HPI narrative: Patient is a pleasant 84 white male presents with his . He has had a history of brain bleeds craniotomy. This is when he fell. He has had an L4 compression fracture. He has some cognitive impairment. Today in the last couple of days he has felt more ?weak?. No focal nature to this no fevers, no chills, no dysuria frequency, no chest pain or shortness of breath. The patient had no leg swelling or edema. He is still able to walk with his walker but he has felt a little more weak than normal. He reports maybe not drinking as much fluid as he typically does and he has been active. No abdominal pain. Related Data Home Medications ?Medication ?Instructions ?Recorded ?Confirmed Lactobacillus acidophilus 10 100 mmu cells PO DAILY 10/07/23 10/28/23 billion cell capsule blood sugar diagnostic (Contour 10/07/23 10/07/23 Next Test Strips) ferrous sulfate 325 mg (65 mg 325 mg PO DAILY 10/07/23 10/27/23 iron) tablet furosemide 20 mg tablet 20 mg PO DAILY 10/07/23 10/27/23 glyburide 2.5 mg tablet 2.5 mg PO DAILY 10/07/23 10/27/23 niacin 500 mg tablet 500 mg PO DAILY 10/07/23 10/27/23 nitroglycerin 0.4 mg sublingual 0.4 mg sublingual Q5M PRN 10/07/23 10/27/23 tablet omega 5-blt-fdq-fish oil 1,200 mg 1 cap PO DAILY 10/07/23 10/27/23 (144 mg-216 mg) capsule (Fish Oil) semaglutide 7 mg tablet (Rybelsus) 7 mg PO DAILY 10/07/23 10/27/23 sertraline 100 mg tablet 150 mg PO DAILY 10/07/23 10/27/23 simvastatin 80 mg tablet 80 mg PO DAILY 10/07/23 10/27/23 tamsulosin 0.4 mg capsule 0.8 mg PO QPM 10/07/23 10/27/23 Previous Rx's ?Medication ?Instructions ?Recorded acetaminophen 500 mg capsule 1,000 mg (2 x 500 mg) PO TID PRN 10/28/23 #100 caps calcitonin (salmon) 200 1 spray intranasal (ALT) DAILY 10/28/23 unit/actuation nasal spray #3.7 mL lidocaine 4 % topical patch 1 patch topical DAILY PRN pain #30 10/28/23 ea metoprolol tartrate 25 mg tablet 12.5 mg (1/2 x 25 mg) PO BID #30 10/28/23 tabs oxycodone 5 mg tablet 5 mg PO Q6H PRN pain #30 tabs 10/28/23 sennosides 8.6 mg capsule (senna) 8.6 mg PO BID constipation #30 caps 10/28/23 Allergies Allergy/AdvReac Type Severity Reaction Status Date / Time chlorthalidone AdvReac Unknown Verified 09/12/24 11:13 lisinopril AdvReac Verified 09/12/24 11:13 Review of Systems Status of ROS: Reports: 6 or more systems reviewed and unremarkable except as noted in History and below [facility] Medical History Cognitive impairment ?R41.89 - Other symptoms and signs involving cognitive functions and awareness (ICD-10) CKD (chronic kidney disease) stage 3, GFR 30-59 ml/min ?N18.30 - Chronic kidney disease, stage 3 unspecified (ICD-10) Pulmonary fibrosis ?J84.10 - Pulmonary fibrosis, unspecified (ICD-10) 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 - Radiation proctitis (ICD-10) Non-insulin dependent diabetes mellitus Hyperlipidemia ?E78.5 - Hyperlipidemia, unspecified (ICD-10) Essential (primary) hypertension ?I10 - Essential (primary) hypertension (ICD-10) IVORY (obstructive sleep apnea) ?G47.33 - Obstructive sleep apnea (adult) (pediatric) (ICD-10) Prostate cancer ?C61 - Malignant neoplasm of prostate (ICD-10) GERD (gastroesophageal reflux disease) ?K21.9 - Gastro-esophageal reflux disease without esophagitis (ICD-10) Atherosclerotic heart disease ?I25.10 - Atherosclerotic heart disease of [place] coronary artery without angina pectoris (ICD-10) Gout ?M10.9 - Gout, unspecified (ICD-10) Surgical History H/O hemorrhoidectomy ?Z98.890 - Other specified postprocedural states (ICD-10) H/O colonoscopy ?Z98.890 - Other specified postprocedural states (ICD-10) H/O arthroscopy of shoulder ?Z98.890 - Other specified postprocedural states (ICD-10) S/P cholecystectomy ?Z90.49 - Acquired absence of other specified parts of digestive tract (ICD-10) Hx of CABG ?Z95.1 - Presence of aortocoronary bypass graft (ICD-10) Social History Narrative: Retired, [place]. Two adult children. Former smoker, typically has 1-2 drinks per night, has not been drinking much recently. No history of ETOH withdrawal. would be medical decision maker if needed, code status is full. What is your current living situation?: I presently have a place to live Problems where you live: no known problems Problems where you live details: NA In the past 12 months, utilities in danger of being shut off: no In past 12 months, lack of transportation kept you from medical appts, meetings, work, or getting things needed for daily living: no In the past 12 mos, have been you worried that your food would run out before you had money to buy more?: never true In the past 12 mos, the food you bought just didn't last and you didn't have money to buy more?: never true Highest level of school completed/degree received: GED or equivalent Smoking Status: Never smoker Second hand tobacco smoke exposure: No How often do you have a drink containing alcohol: 4 or more times a week Alcohol type details: 1-2 drinks nightly, states he hasn't had any for a few nights How many standard drinks containing alcohol do you have on a typical day: 1 or 2 How often do you have six or more drinks on one occasion: Never AUDIT-C Alcohol total score: 4 Non-prescribed substance use: denies use Caffeine: Yes How often does anyone, including family, friends and others, physically hurt you: never How often does anyone, including family, friends and others, insult or talk down to you: never How often does anyone, including family, friends and others, threaten you with harm: never How often does anyone, including family, friends and others, scream or curse at you: never service: No Exam Narrative: Exam Narrative: Objective: Vital signs as described no fever O2 sat excellent Dry mucous membranes in the mouth no facial asymmetry patient is alert orient x3 neck is supple chest clear heart rhythm regular 2/6 systolic murmur abdomen benign soft nontender extremities no edema neurologic nonfocal upper lower extremities. Const: Vital Signs, click to edit/add: Vital Signs - 24 hr 11/10/24 18:36 11/10/24 20:30 11/10/24 21:00 Temperature 97.5 F L Pulse Rate [Pulse Oximeter] 80 76 70 Respiratory Rate 16 16 16 Blood Pressure [Ri ght Upper Arm] 160/92 H 153/75 H 148/67 H Pulse Oximetry 95 97 96 Oxygen Delivery Me thod Room Air Room Air Room Air Course Vital Signs Vital signs: Initial Vital Signs Temperature 97.5 F L 11/10/24 18:36 Temperature Source Temporal Artery Scan 11/10/24 18:36 Pulse Rate 80 11/10/24 18:36 Respiratory Rate 16 11/10/24 18:36 Blood Pressure 160/92 H 11/10/24 18:36 Blood Pressure Mean 114 H 11/10/24 18:36 Blood Pressure Position Sitting 11/10/24 18:36 Pulse Oximetry 95 11/10/24 18:36 Oxygen Delivery Method Room Air 11/10/24 18:36 Vital Signs Temperature 97.5 F L 11/10/24 18:36 Pulse Rate 80 11/10/24 18:36 Respiratory Rate 16 11/10/24 18:36 Blood Pressure 160/92 H 11/10/24 18:36 Pulse Oximetry 95 11/10/24 18:36 Oxygen Delivery Method Room Air 11/10/24 18:36 Temperature 97.5 F L 11/10/24 18:36 Pulse Rate 70 11/10/24 21:00 Respiratory Rate 16 11/10/24 21:00 Blood Pressure 148/67 H 11/10/24 21:00 Pulse Oximetry 96 11/10/24 21:00 Oxygen Delivery Method Room Air 11/10/24 21:00 Medications Administered Medications: Discontinued Medications Generic Name Dose Route Start Last Admin Trade Name Freq PRN Reason Stop Dose Admin Sodium Chloride 500 mls @ 500 mls/hr 11/10/24 18:56 11/10/24 20:52 0.9 % Sodium Chloride 500 Ml IV 11/10/24 19:55 Infused .Q1H ONE Infusion Ceftriaxone Sodium 500 mg/ 100 mls @ 200 mls/hr 11/10/24 20:41 11/10/24 21:06 Sodium Chloride IVPB 11/10/24 20:42 Infused ONCE ONE Infusion Medical Decision Making MDM Narrative Medical decision making narrative: [age] white male with history of brain bleed with weakness over the last couple of days unclear etiology I think checking head CT again given his history of brain bleed would be appropriate as well as chest x-ray lab studies urinalysis EKG. Will give him 500 mL of saline. He has no fever he has no cough I do not think we need to check COVID. Differential is broad including metabolic abnormality, dehydration which I suspect, generalized weakness from age and debility. Addendum 8:[address] shows no acute changes, he has almost resolution of his entire subdural hematoma. No acute findings. The patient has a abnormal urinalysis with red cells and white cells. Urine cultures pending. This certainly could explain some his weakness will give him IV Rocephin 500 mg and then start Cipro 500 b.i.d. x5 days. Recommend follow-up with regular doctor next few days for reassessment. Sooner problems or concerns. Rest light activity fluids continue home meds. Return to ED as needed. Lab Data Labs: Lab Results 11/10/24 11/10/24 11/10/24 Range/Units 19:20 19:22 19:30 WBC 5.34 (4.50-11.00) K/uL RBC 3.86 L (4.30-5.90) m/uL Hgb 11.9 L (13.5-17.5) gm/dL Hct 37.1 (37.0-53.0) % MCV 96 (80-100) fL MCH 31 (26-34) pg MCHC 32 (32-36) gm/dL RDW Coeff of Jcarlos 15.5 (11.5-15.5) % Plt Count 237 (140-440) K/uL Neut % (Auto) 69.5 (42.0-72.0) % Lymph % (Auto) 16.5 L (20-44) % Pitt % (Auto) 11.0 (0.0-11.0) % Eos % (Auto) 1.7 (0.0-7.0) % Baso % (Auto) 0.6 (0.0-3.0) % Neut # (Auto) 3.71 (1.7-7.0) K/uL Lymph # (Auto) 0.90 (0.90-2.90) K/uL Pitt # (Auto) 0.60 (0.00-0.90) K/UL Eos # (Auto) 0.09 (0.00-0.50) K/uL Baso # (Auto) 0.03 (0.00-0.30) K/uL Abs Immat Gran (auto) 0.04 (0.00-0.30) K/uL Imm/Tot Granulo (auto) 0.7 % INR 0.96 (0.91-1.10) Sodium 139 (135-149) mmol/L Potassium 4.7 (3.6-5.1) mmol/L Chloride 102 (96-114) mmol/L Carbon Dioxide 27 (20-32) mmol/L Anion Gap 10 (7-15) mEq/L BUN 38 H (7-30) mg/dL Creatinine 2.2 H (0.5-1.5) mg/dL Estimated Creat Clear 27.92 Estimated GFR 29 ml/min Glucose 112 (60-115) mg/dL Lactate 1.3 (0.5-1.9) mmol/L Calcium 9.8 (8.4-10.6) mg/dL Total Bilirubin 0.4 (0.1-1.5) mg/dL Direct Bilirubin 0.1 (0.0-0.5) mg/dL AST 31 (12-35) U/L ALT 33 (4-50) U/L Alkaline Phosphatase 63 (40-150) U/L C-Reactive Protein < 0.5 L (0.5-1.0) mg/dL NT-Pro-B Natriuret Pep 219 (See Note) pg/mL Total Protein 7.5 (6.0-8.3) g/dL Albumin 4.7 (3.3-5.0) g/dL Amylase 142 H (18-89) U/L Urine Color Yellow (Yellow) Urine Appearance Clear (Clear) Urine pH 7.0 (5.0-8.5) Ur Specific Wayne 1.015 (1.000-1.030) Urine Protein 1+ A (Negative) Urine Glucose (UA) 2+ A (Negative) Urine Ketones Negative (Negative) Urine Blood 2+ A (Negative) Urine Nitrite Negative (Negative) Urine Bilirubin Negative (Negative) Urine Urobilinogen 0.2 (0.2-1.0) Ur Leukocyte Esterase Negative (Negative) Urine RBC 2-5 A (0-2) Urine WBC 5-10 A (0-5) Ur Squamous Epith Cells None (None-Few) Urine Bacteria None (None) POC Troponin I 0.00 L (0.01-0.04) ng/ml Discharge Plan Discharge Clinical Impression: Weakness, Cognitive impairment, CKD (chronic kidney disease) stage 3, GFR 30-59 ml/min, Essential (primary) hypertension, Urinary tract infection Patient Disposition: Home w/ Parent or Adult Condition: Stable Additional Instructions: Drink lots of fluid, light activity, take your antibiotic for presumed urinary tract infection. Recheck with regular doctor in the next few days. Activity Level: Light activity Discharge Diet: Diabetic Prescriptions: No Action (DME) Contour Next Test Strips Strip MISCELLANEOUS DAILY glyburide 2.5 mg tablet 2.5 mg PO DAILY furosemide 20 mg tablet 20 mg PO DAILY nitroglycerin 0.4 mg tablet, sublingual 0.4 mg sublingual Q5M PRN sertraline 100 mg tablet 150 mg PO DAILY simvastatin 80 mg tablet 80 mg PO DAILY tamsulosin 0.4 mg capsule 0.8 mg PO QPM Rybelsus 7 mg tablet 7 mg PO DAILY niacin 500 mg tablet 500 mg PO DAILY Lactobacillus acidophilus 10 billion cell capsule 100 mmu cells PO DAILY ferrous sulfate 325 mg (65 mg iron) tablet 325 mg PO DAILY omega 8-yqe-log-fish oil [Fish Oil] 1,200 (144-216) mg capsule 1 cap PO DAILY senna 8.6 mg capsule 8.6 mg PO BID Qty: 30 0RF oxycodone 5 mg tablet 5 mg PO Q6H PRN (Reason: pain) Qty: 30 0RF lidocaine 4 % adhesive patch,medicated 1 patch topical DAILY PRN (Reason: pain) Qty: 30 0RF calcitonin (salmon) 200 unit/actuation spray,non-aerosol 1 spray intranasal (ALT) DAILY Qty: 3.7 0RF acetaminophen 500 mg capsule 1,000 mg PO TID PRNQty: 100 0RF metoprolol tartrate 25 mg tablet 12.5 mg PO BID Qty: 30 0RF Rx Instructions: 1 tab every morning, 2 tabs every evening Follow Up/Referrals: Sravan Aparicio MD [Primary Care Provider, Family Practice] Stand Alone Forms: [facility] Info Inst[facility]
--- NOTE | 2024-11-10 18:56 | CRLHL7_ITS ---
For Patients: As a result of the Century Cures Act, medical imaging exams and procedure reports are released immediately into your electronic medical record. You may view this report before your referring provider. If you have questions, please contact your health care provider. INDICATION: Weakness. TECHNIQUE: Chest 1 view. COMPARISON: 08/28/2021. FINDINGS: Cardiovascular and mediastinum: Prior median sternotomy. Normal heart size. Unremarkable thoracic aorta. Lungs and pleural spaces: Mild left basilar atelectasis versus scarring. No focal consolidation, pleural effusion, or pneumothorax. Bones and soft tissues: Unremarkable for age. IMPRESSION: No evidence of an acute pulmonary process. Dictated by Marvin Garcia MD @ 11/10/2024 7:41:50 PM (Electronically Signed)
--- NOTE | 2024-11-10 18:56 | CRLHL7_ITS ---
For Patients: As a result of the Century Cures Act, medical imaging exams and procedure reports are released immediately into your electronic medical record. You may view this report before your referring provider. If you have questions, please contact your health care provider. INDICATION: Intracranial hemorrhage COMPARISON: 05/15/2024. TECHNIQUE: Noncontrast CT head. FINDINGS: Compared to the previous exam, postoperative changes of right parietal craniotomy. Compared to the previous exam, near resolution of the subdural hematoma about the right cerebral hemisphere. There is extremely thin low-attenuation extra-axial fluid collection adjacent to the lateral right frontal lobe and parietal lobe measuring approximately 2 mm in maximal thickness. No new intracranial hemorrhage. No acute infarct. No midline shift. No abnormal ventricular dilatation. Normal skullbase. Visualized paranasal sinuses mastoid air cells are clear. Normal orbits bilaterally. IMPRESSION: 1. Postoperative changes of right parietal craniotomy 2. Near resolution of previously noted subdural hematoma about the right cerebral hemisphere. Residual low-attenuation thin 2 millimeter extra-axial fluid collection adjacent to the lateral right frontal lobe. 3. No acute intracranial abnormality Please note that all CT scans at this facility use dose modulation, iterative reconstruction, and/or weight-based dosing when appropriate to reduce radiation dose to as low as reasonably achievable. Dictated by Efren Tuttle MD @ 11/10/2024 7:22:51 PM (Electronically Signed)
--- OUTSIDE RECORDS SUMMARY | 2024-11-10 19:05 | XMS_ITS | Clinical Summary ---
Author Organization [facility] Address [address] , [address] [place] [address] Phone Care Team Providers Care Screen Printer Name Role Phone [facility] Unavailable Unava ilable Conditions or Problems Problem Name Problem Code Onset Date Status Entry Date Provider Comment Standard Description Annotate Abnormal electromyogram 826330660 (SNOMED CT) 08/17 Active 08/17 Lei Carrizales MD Electromyogram abnormal Gait imbalance [id number] (SNOMED CT) 07/28 Active 07/28 Lei Carrizales MD Abnormal gait due to impairment of balance Spinal stenosis of lumbar region 13520923 (SNOMED CT) 07/28 Active 07/28 Lei Carrizales MD Spinal stenosis of lumbar region Peripheral polyneuropathy 679427688 (SNOMED CT) 07/28 Active 07/28 Lei Carrizales MD Peripheral nerve disease Parkinsonism, unspecified 80365485 (SNOMED CT) 07/28 Active 07/28 Lei Carrizales MD Parkinsonism Medications Medication Instructions Start Date Stop Date Generic Name [facility] Provider FREESTYLE RANDA 3 PLUS SENSOR USE DIRECTED^CHANGE EVERY 15 DAYS* blood-glucose sensor 96550609614 Lei Carrizales MD RYBELSUS 7 MG TABS semaglutide [id number] Lei Carrizales MD JARDIANCE 10 MG TABS empagliflozin [id number] Lei Carrizales MD TAMSULOSIN HCL 0.4 MG CAPS tamsulosin [id number] Lei Carrizales MD AZITHROMYCIN 250 MG TABS azithromycin 22906474719 Lei Carrizales MD FAMOTIDINE 20 MG TABS famotidine 70557230671 Lei Carrizales MD SIMVASTATIN 80 MG TABS simvastatin 99435734625 Lei Carrizales MD SERTRALINE HCL 100 MG TABS sertraline [id number] Lei Carrizales MD Medications Administered No information available. Allergies, Adverse Reactions, Alerts Allergy Name Reaction Description Start Date Severity Statu s Provider SEMAGLUTIDE Vomiting Mild Active Wai cai LISINOPRIL Hyperkalemia Critical Active Wai Arguelles CHLORTHALIDONE Hyperkalemia Mild Active Sacha Arguelles Results Date Name Value Unit Range Flag Description Office Visit: Office Visit i mbalance, h/o neuropathy MRI, [facility] recs.i SMOK STATUS former smoker Tob acco smoking status MEDS REVIEW Done Documenta tion of current medications (procedure) Internal Other: Authorizatio n AUTHBENEFIT Yes Authoriza tion: Assignment of Benefits and Payment Agreement [email or web address] Yes Authorizat ion: Authorization for [facility] to leave messages, voicemail, send text messages, send emails AUTHRELHCARE Yes Authoriz ation: Release/Retrieval of Information to/from Healthcare Facilities, Pharmacy Benefit Payers and Providers ROIAUTHOTHER Yes Authoriz ation: Release of Information - Authorize Others/Insurance - Payment and Healthcare Operations [email or web address] Yes Authoriza tion: Release of Information - Authorize [facility] - Payment and Healthcare Operations AUTHPRIVPRAC Yes Authoriz ation: Notice of privacy practices HIECONSENT Yes Consent To Release information to the Health Information Exchange (Shoutit[employer]) Lab Report: VITAMIN B6, PLAS MA VIT B6 20.1 ng/mL 2.1-21.7 VITAMIN B6, PLASMA Internal Other: Verbal Autho rization/Emergency Contact VERBAL_EMER Done Verbal authorization and emergency contact Plan of Care Type Date Detail Appointment 12:20 PM Lei Carrizales MD , [address], [address], [place], [address], Referral Other Referral Pending order Follow up Pending order Follow up Pending order Follow up DARRIUS Pending order Follow up DARRIUS Pending order Patient Instruct ions Pending order Patient Instruct ions Pending order EMG bilateral lo w ext Pending order Patient Instruct ions Pending order Vitamin B6 (Pyri doxine) - fasting after midnight Pending order Vitamin B12 Pending order Immunofixation S elijah Procedures Code Procedure Name Date Entry Date ORDERS Patient Instructions ORDERS Patient Instructions ORDERS EMG bilateral low ext 07/28 CPT-75857 Nerve Conduction 13 or more studies 08/17 CPT-88442 EMG with NCS (5+ muscles) - 2 limbs 08/17 ORDERS Vitamin B6 (Pyridoxi ne) - fasting after midnight [id number] Documentation of current medicatio ns [id number] Documentation of current medicatio ns [id number] Documentation of current medicatio ns [id number] Documentation of current medicatio ns ORDERS Vitamin B12 ORDERS Immunofixation Serum ORDERS Patient Instructions Vital Signs No information available. Immunizations No information available. Advance Directives No information available.
[2024-11-10 19:35] LABS: Appearance Urine Clear (Clear)
[2024-11-10 19:36] LABS: Lactate* 1.3 mmol/L (0.5-1.9)
[2024-11-10 19:44] LABS: Troponin, Point-of-Care* 0.00 ng/ml (0.01-0.04)
[2024-11-10] MEDS: 0.9 % SODIUM CHLORIDE 500 ML 500 ML IV (19:45)
[2024-11-10 19:49] LABS: Hematocrit 37.1 % (37.0-53.0); Hemoglobin* 11.9 gm/dL (13.5-17.5); Immature Granulocytes Abs Auto 0.04 K/uL (0.00-0.30); Immature Granulocytes Pct Auto 0.7 %; Mean Corpuscular HGB Conc 32 gm/dL (32-36); Mean Corpuscular Hemoglobin 31 pg (26-34); Mean Corpuscular Volume 96 fL (80-100); RDW Coefficient of Variation % 15.5 % (11.5-15.5); Red Blood Count 3.86 m/uL (4.30-5.90); White Blood Count* 5.34 K/uL (4.50-11.00)
[2024-11-10 19:52] LABS: Albumin* 4.7 g/dL (3.3-5.0); Chloride* 102 mmol/L (96-114); Potassium* 4.7 mmol/L (3.6-5.1); Sodium* 139 mmol/L (135-149)
[2024-11-10 19:54] LABS: Blood Urea Nitrogen* 38 mg/dL (7-30); Creatinine* 2.2 mg/dL (0.5-1.5); Est. Creatinine Clearance* 27.92; Estimated Glomerular Filt Rate 29 ml/min
[2024-11-10 19:55] LABS: Alanine Aminotransferase* 33 U/L (4-50); Alkaline Phosphatase* 63 U/L (40-150); Anion Gap 10 mEq/L (7-15); Aspartate Amino Transferase* 31 U/L (12-35); Bilirubin Direct* 0.1 mg/dL (0.0-0.5); Bilirubin Total* 0.4 mg/dL (0.1-1.5); Calcium* 9.8 mg/dL (8.4-10.6); Carbon Dioxide* 27 mmol/L (20-32); Glucose* 112 mg/dL (60-115); Total Protein* 7.5 g/dL (6.0-8.3)
[2024-11-10 20:04] LABS: Prothrombin Time 13.5 Seconds
[2024-11-10 20:05] LABS: INR 0.96 (0.91-1.10)
[2024-11-10 20:26] LABS: Lymphocytes Absolute Auto 0.90 K/uL (0.90-2.90); Slide Review Reflex No
[2024-11-10 20:30] VITALS: BP 153/75; PULSE 76; RESP 16; O2SAT 97
[2024-11-10 20:30] LABS: NT Pro B Type NatriureticPept* 219 pg/mL (See Note)
[2024-11-10] MEDS: cefTRIAXone 500 MG in 0.9 % SODIUM CHLORIDE Mini-bag 100 ML 200 MG IVPB (20:50)
[2024-11-10 21:00] VITALS: BP 148/67; PULSE 70; RESP 16; O2SAT 96
== END 2024-11-10 21:20 | disposition home or self-care (01) ==
PROVIDERS: Emergency Provider Family Medicine; PCP Family Medicine
DX: N18.30 Chronic kidney disease, stage 3 unspecified (principal); N39.0 Urinary tract infection, site not specified; I10 Essential (primary) hypertension
CPT/HCPCS: 36415; 70450; 71045; 80048; 80076; 81001; 82150; 83605; 83880; 84484; 85025; 85610; 86140; 87086; 93005; 96365; 99285; J0696; J7030

== ENCOUNTER 2024-11-24 12:26 | Outpatient (CLI) | payer MEDICARE, BC, SELFPAY | END 2024-11-24 12:27 | disposition home or self-care (01) | LOC: INJ CL 12:28 | PROVIDERS: PCP Family Medicine; Visit Provider Family Medicine | DX: M54.16 Radiculopathy, lumbar region (principal); M51.369 Other intervertebral disc degeneration, lumbar region without mention of lumbar back pain or lower extremity pain; R26.89 Other abnormalities of gait and mobility; M48.061 Spinal stenosis, lumbar region without neurogenic claudication; R29.898 Other symptoms and signs involving the musculoskeletal system | CPT/HCPCS: 62323; J0702; Q9966 ==